=== PATIENT | female | born 2000 | race Caucasian/White ===

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

== ENCOUNTER → 2018-02-10 14:21 | Outpatient (POV) | payer BC, SELFPAY | DX: Z00.00 Encounter for general adult medical examination without abnormal findings (principal) ==

== ENCOUNTER → 2019-03-21 10:01 | Outpatient (CLI) | payer OTHER, SELFPAY ==
--- NOTE | 2019-03-21 10:01 | XR_ITS ---
PROCEDURE: XR DEXA AXIAL SKELETON CLINICAL HISTORY: Bone Density- Hat Lacer use of Depo-Provera COMPARISON: No exams were available for comparison FINDINGS: Right femoral neck density is 0.848 grams/centimeters sq with a Z-score of 0.0. Left femoral neck density is 0.835 grams/centimeters sq with a Z-score of -0.1. L1-L4 density is 1.075 grams/centimeters sq with a Z-score of 0.5. IMPRESSION: Normal bone density with age matched controls Dictated by: Neil Mendoza MD 04/01/2019 11:32 Electronically signed by Neil Mendoza MD in [place] 04/01/2019 11:32
== END ==
PROVIDERS: PCP Family Medicine; Visit Provider Nurse Practitioner Obstetrics & Gynecology
DX: Z30.42 Encounter for surveillance of injectable contraceptive (principal)
CPT/HCPCS: 77080

== ENCOUNTER 2020-01-14 09:05 | Emergency (ER) | payer OTHER, SELFPAY ==
[2020-01-14 09:26] VITALS: BP 132/86; PULSE 71; RESP 19; TEMP 36.9; O2SAT 100; BMI 32.5
--- NOTE | 2020-01-14 09:29 | HMH.EDUTC ---
[facility] [place] Disposition Clinical Impression: Sinusitis Qualifiers: Sinusitis location: unspecified location Chronicity: unspecified Qualified Code(s): J32.9 - Chronic sinusitis, unspecified Disposition: Home, Self-Care Condition on Discharge: Good Instructions: Sinusitis, Sinus Headache, DI for Sinusitis, Amoxicillin and Clavulanic Acid Additional Instructions: *Monitor Temp, Over the counter Motrin or Tylenol as directed/as needed Tylenol every 4 hours and Motrin every 6 hours (as long as your family doctor has told you that you can take it) for fever or pain. and straight to ER if unable to lower temp less than 101.0 after medication given *Warm salt water gargles may help to soothe the throat *Throat Lozenges *Warm fluids like tea with honey may help to soothe the throat *Sleep elevated *Humidifier/Vaporizer Take medication as prescribed Return if needed Follow up IMMEDIATELY for new or worsening symptoms or no Noticeable improvement over the next 48-72 hours. 911 for difficulty breathing or swallowing Prescriptions: Amoxicillin/Potassium Clav [Augmentin 875-125 Tablet] 1 tab PO Q12H 7 Days #14 tab Transmission Status: Pending to [facility] Fluticasone Propionate [Flonase 50mcg nasal spray 16gm] 1 - 2 spr NS DAILY #1 bottle Transmission Status: Pending to [facility] methylPREDNISolone [Medrol 4mg tab] 4 mg PO DIRECTED #21 tab Transmission Status: Pending to [facility] Referrals: Michael Carr MD [Primary Care Provider] - As needed Time of Disposition: 09:34 Medical Decision Making - Simone Inquiry Pt receiving controlled substance: No Simone was queried for this patient: No Vital Signs: 01/14/20 09:26 Temperature 98.4 F Temperature Source Oral Pulse Rate [Radial] 71 Respiratory Rate 19 Blood Pressure [Right Arm] 132/86 Blood Pressure Mean [Right Arm] 101 Blood Pressure Source [Right Arm] Automatic Cuff Blood Pressure Position [Right Arm] Sitting 02 Sat by Pulse Oximetry 100 Oxygen Delivery Method Room Air [facility] [place] HPI - General Stated complaint: sinus pressure, congestion Time Seen by Provider: 01/14/20 09:29 Mode of Arrival: Ambulatory Source of Information: Patient Limitations: No Limitations Description of Symptoms (Recalled from Triage Doc. by RN): sinus pressure and drainage x 2 days HEENT Symptoms (Recalled from RN notes): Yes Resp Symptoms (Recalled from RN notes): No Skin Symptoms (Recalled from RN notes): No MS Symptoms (Recalled from RN notes): No Functional Status (Recalled from RN notes): wnl - History of Present Illness Provider Complaint: Patient states that she has been having sinus congestion and pressure on an off for several days States for the last couple of days her pressure has got worse and feeling pressure under her eyes Denies exposure to COVID - Related Data Home Medications Medication Instructions Recorded Confirmed montelukast 10 mg tablet 10 mg PO DAILY 90 Days #90 tab 12/31/17 07/14/19 escitalopram oxalate 10 mg tablet 10 mg PO DAILY #30 tab 02/16/19 07/14/19 Previous Rx's Medication Instructions Recorded clindamycin HCl 300 mg capsule 300 mg PO TID 14 Days #42 cap 06/30/19 topiramate 100 mg tablet 100 mg PO QHS #30 tab 07/13/19 medroxyprogesterone 150 mg/mL 150 mg IM [id number] #1 ml 12/19/19 intramuscular suspension Amoxicillin/Potassium Clav 1 tab PO Q12H 7 Days #14 tab 01/14/20 [Augmentin 875-125 Tablet] Fluticasone Propionate [Flonase 1 - 2 spr NS DAILY #1 bottle 01/14/20 50mcg nasal spray 16gm] methylPREDNISolone [Medrol 4mg 4 mg PO DIRECTED #21 tab 01/14/20 tab] Allergies Allergy/AdvReac Type Severity Reaction Status Date / Time No Known Allergies Allergy Verified 07/14/19 10:11 - Worker's Comp Is this a Worker's Comp case?: No [facility] History - Hepatitis A Screen Drug use history?: No High risk sexual behaviors?: No History of sexually transmitted infection?: No Currently employed?:
[2020-01-14 09:45] VITALS: BP 132/86; PULSE 71; RESP 19; TEMP 36.9; O2SAT 100
== END 2020-01-14 09:46 | disposition home or self-care (01) ==
PROVIDERS: Emergency Provider Nurse Practitioner; PCP Family Medicine
DX: J32.9 Chronic sinusitis, unspecified (principal); F41.9 Anxiety disorder, unspecified; G43.709 Chronic migraine without aura, not intractable, without status migrainosus
CPT/HCPCS: 99201

== ENCOUNTER 2020-03-31 12:45 | Emergency (ER) | payer OTHER, SELFPAY ==
[2020-03-31 12:50] VITALS: BP 129/78; PULSE 84; RESP 20; TEMP 36.7; O2SAT 98; BMI 34.3
--- NOTE | 2020-03-31 12:58 | XR_ITS ---
PROCEDURE: XR FOOT LT MIN 3V XR ANKLE LT MIN 3V Referring Doctor: Rylan Phillips Patient Age:19Y CLINICAL INDICATION: INJURY pain ankle and foot. Pain most notable top of foot and overlying lateral malleolus overlying lateral malleolus COMPARISON: CR XR ANKLE LT MIN 3V from 03/31/2020 TECHNIQUE: 3 View AP, Oblique, Lateral studies of both the left ankle, as well as left foot performed today nonweightbearing FINDINGS: --LEFT ANKLE-3 VIEW AP LATERAL AND OBLIQUE . No fracture or dislocation. No lytic or blastic change. There is normal mineralization. Normal relationships at the ankle mortise. No arthritic changes . Soft tissue swelling overlying the lateral malleolus and extending towards the lateral foot. Lateral malleolus intact with no fracture evident --LEFT FOOT-THREE VIEWS: The left foot is intact with no fracture nor dislocation. Bones well mineralized. Joint spaces well maintained. The joint spaces are well-preserved. No significant degenerative/arthritic changes. No erosive changes evident. . Metatarsals intact and specifically base of 5th metatarsal intact on these views IMPRESSION: No acute fracture at either the left foot, nor left ankle. . Soft tissue swelling overlying the lateral malleolus extending towards the lateral foot, but osseous structures appear intact Dictated by: Deric Chatman MD 03/31/2020 14:28 Deric Chatman MD in [place] 03/31/2020 14:28
--- NOTE | 2020-03-31 13:28 | HMH.EDUTC ---
[facility] [place] Disposition Clinical Impression: Left ankle pain Qualifiers: Chronicity: acute Qualified Code(s): M25.572 - Pain in left ankle and joints of left foot Crush injury of left foot Qualifiers: Encounter type: initial encounter Qualified Code(s): S97.82XA - Crushing injury of left foot, initial encounter Disposition: Home, Self-Care Condition on Discharge: Good Instructions: DI for Crush Injury Additional Instructions: Rest the extremity, apply ice for 15 minutes as tolerated three or four times per day, Elevate the extremity as tolerated while you are resting. Take ibuprofen for pain. I sent in a prescription to your pharmacy. Follow up with Dr. Kumar (podiatry). Sometimes there can be fractures that don't show up well on the first set of x-rays. So, you should follow up if you continue to have symptoms. I put in a referral but you need to call her office and schedule an appointment. Follow up with your regular doctor. GO TO THE ER FOR ANY WORSENING SYMPTOMS Prescriptions: Ibuprofen [Ibuprofen 600mg Tablet] 600 mg PO Q6HP PRN #30 tab PRN Reason: Mild Pain Transmission Status: Received by [facility] Referrals: Michael Carr MD [Primary Care Provider] - Carol Kumar DPM [Staff Physician] - Time of Disposition: 13:37 Medical Decision Making - Medical Records Medical records reviewed: No: I reviewed the patient's medical records. - Simone Inquiry Pt receiving controlled substance: No Vital Signs: 03/31/20 12:50 03/31/20 13:36 Temperature 98.1 F 98.1 F Temperature Source Oral Pulse Rate 84 Pulse Rate [Left Brachial] 84 Respiratory Rate 20 20 Blood Pressure 129/78 Blood Pressure [Right Arm] 129/78 Blood Pressure Mean [Right Arm] 95 Blood Pressure Source [Right Arm] Automatic Cuff Blood Pressure Position [Right Arm] Sitting 02 Sat by Pulse Oximetry 98 Oxygen Delivery Method Room Air - Radiology Data #1 Image(s): Ankle Image Reviewed: Yes I reviewed the patient's radiology image, Yes I have reviewed radiologist's interpretation Preliminary Findings: No Fracture Seen PROCEDURE: XR FOOT LT MIN 3V XR ANKLE LT MIN 3V Referring Doctor: Rylan Phillips Patient Age:19Y CLINICAL INDICATION: INJURY pain ankle and foot. Pain most notable top of foot and overlying lateral malleolus overlying lateral malleolus COMPARISON: CR XR ANKLE LT MIN 3V from 03/31/2020 TECHNIQUE: 3 View AP, Oblique, Lateral studies of both the left ankle, as well as left foot performed today nonweightbearing FINDINGS: --LEFT ANKLE-3 VIEW AP LATERAL AND OBLIQUE . No fracture or dislocation. No lytic or blastic change. There is normal mineralization. Normal relationships at the ankle mortise. No arthritic changes . Soft tissue swelling overlying the lateral malleolus and extending towards the lateral foot. Lateral malleolus intact with no fracture evident --LEFT FOOT-THREE VIEWS: The left foot is intact with no fracture nor dislocation. Bones well mineralized. Joint spaces well maintained. The joint spaces are well-preserved. No significant degenerative/arthritic changes. No erosive changes evident. . Metatarsals intact and specifically base of 5th metatarsal intact on these views IMPRESSION: No acute fracture at either the left foot, nor left ankle. . Soft tissue swelling overlying the lateral malleolus extending towards the lateral foot, but osseous structures appear intact Dictated by: Deric Chatman MD 03/31/2020 14:28 Deric Chatman MD in [place] 03/31/2020 14:28 #2 Image(s): Foot/Toes Image Reviewed: Yes I reviewed the patient's radiology image, Yes I have reviewed radiologist's interpretation Preliminary Findings: No Fracture Seen PROCEDURE: XR FOOT LT MIN 3V XR ANKLE LT MIN 3V Referring Doctor: Rylan Phillips Patient Age:19Y CLINICAL INDICATION: INJURY pain ankle and foot. Pain most notable top of foot and overlyin
[2020-03-31 13:36] VITALS: BP 129/78; PULSE 84; RESP 20; TEMP 36.7; O2SAT 98
== END 2020-03-31 13:44 | disposition home or self-care (01) ==
PROVIDERS: Emergency Provider Nurse Practitioner Family; PCP Family Medicine
DX: S97.82XA Crushing injury of left foot, initial encounter (principal); W22.8XXA Striking against or struck by other objects, initial encounter; Y92.019 Unspecified place in single-family (private) house as the place of occurrence of the external cause; F41.9 Anxiety disorder, unspecified; G43.709 Chronic migraine without aura, not intractable, without status migrainosus
CPT/HCPCS: 29515; 73610; 73630; 99203; G0463

== ENCOUNTER 2020-05-01 16:14 | Emergency (ER) | payer OTHER, SELFPAY ==
[2020-05-01 16:35] VITALS: BP 138/72; PULSE 80; RESP 18; TEMP 36.8; O2SAT 98; BMI 26.6
--- NOTE | 2020-05-01 17:18 | HMH.EDUTC ---
[facility] [place] Disposition Clinical Impression: Laceration Disposition: Home, Self-Care Condition on Discharge: Good Instructions: DI for Laceration Repair, DI for Dog Bite Additional Instructions: Suture/Staple instructions: You have required stitches or Neha today. Please read the following instructions so you know how to care for them: 1. Keep wound area dry for the first 24 hours. 2 May clean gently with mild soap and water, after 48 hours to prevent crusting over suture knots. 3. You may shower if your provider gives permission but do not take a bath until the skin is healed.. 4. Never leave a wet dressing or Band-Aid on your stitches as this allows bacteria to reach the area and may cause infection. Band-aids can cause the wound to sweat and not recommended to wear for long periods of time Watch for signs of infection: Increasing redness, tenderness or warmth around the suture site Unusual swelling around the site Appearance of pus around each suture or any red streaks Fever If you develop any of the above signs or symptoms of infection, Follow up with Family Physician immediately 5. Suture removal in _7-10___days 6. Return to [facility] or follow up with family doctor for removal. This can be done by any medical provider during regular hours on Thursday through Thursday, by appointment Prescriptions: Amoxicillin/Potassium Clav [Augmentin 875-125 Tablet] 1 tab PO Q12H 7 Days #14 tab Transmission Status: Received by [email or web address] Referrals: Michael Carr MD [Primary Care Provider] - As needed Forms: Work/School Release Time of Disposition: 17:23 Medical Decision Making - Simone Inquiry Pt receiving controlled substance: No Simone was queried for this patient: No Vital Signs: 05/01/20 16:35 05/01/20 17:29 Temperature 98.3 F 98.3 F Temperature Source Temporal Artery Scan Pulse Rate 80 Pulse Rate [Right Brachial] 80 Respiratory Rate 18 18 Blood Pressure 138/72 Blood Pressure [Right Arm] 138/72 Blood Pressure Mean [Right Arm] 94 Blood Pressure Source [Right Arm] Automatic Cuff Blood Pressure Position [Right Arm] Sitting 02 Sat by Pulse Oximetry 98 Oxygen Delivery Method Room Air Medical Decision Narrative: Patient reports that dogs is up to date on shots, and she is up to date on her TDAP due to depth and size of laceration discussed with patient and agreed to loosely close the wounds for healing Patient educated to monitor wounds closely for infection and will place on antibiotics [facility] [place] HPI - General Stated complaint: AO dog bite to R arm 1530 Time Seen by Provider: 05/01/20 16:45 Mode of Arrival: Ambulatory Source of Information: Patient Limitations: No Limitations Description of Symptoms (Recalled from Triage Doc. by RN): PATIENT C/O DOG BITE TO RIGHT HAND. SHE STATES SHE IS UP TO DATE ON TDAP HEENT Symptoms (Recalled from RN notes): No Resp Symptoms (Recalled from RN notes): No Skin Symptoms (Recalled from RN notes): Yes MS Symptoms (Recalled from RN notes): No Functional Status (Recalled from RN notes): WNL - History of Present Illness Provider Complaint: Patient state that her dogs was fighting and somehow one of them bite her several times on her right wrist and arm States that she immediately cleaned them out well with soap and water States that she is up to date on her Tdap States that she looked at them and knew they may need a couple stitches so she came in Denies numbness denies inability to move fingers - Related Data Home Medications Medication Instructions Recorded Confirmed montelukast 10 mg tablet 10 mg PO DAILY 90 Days #90 tab 12/31/17 07/14/19 escitalopram oxalate 10 mg tablet 10 mg PO DAILY #30 tab 02/16/19 07/14/19 Previous Rx's Medication Instructions Recorded clindamycin HCl 300 mg capsule 300 mg PO TID 14 Days #42 cap 06/30/19 topiramate 100 mg tablet 100 mg PO QHS #30 tab 07/13/19 medroxyprogesterone 150 mg/mL 150 mg IM [id number] #1 ml 12/19/19 intramu
[2020-05-01 17:29] VITALS: BP 138/72; PULSE 80; RESP 18; TEMP 36.8; O2SAT 98
== END 2020-05-01 17:33 | disposition home or self-care (01) ==
PROVIDERS: Emergency Provider Nurse Practitioner; PCP Family Medicine
DX: S61.511A Laceration without foreign body of right wrist, initial encounter (principal); S61.411A Laceration without foreign body of right hand, initial encounter; W54.0XXA Bitten by dog, initial encounter; Y92.019 Unspecified place in single-family (private) house as the place of occurrence of the external cause; F41.9 Anxiety disorder, unspecified
CPT/HCPCS: 12002; 99202; G0463

== ENCOUNTER → 2020-07-24 14:53 | Outpatient (CLI) | payer OTHER, SELFPAY ==
--- NOTE | 2020-07-24 14:56 | US_ITS ---
PROCEDURE: US TRANSVAGINAL CLINICAL INDICATION: irregular bleeding COMPARISON: No exams were available for comparison FINDINGS: UTERUS: 6.2 x 4cmx 3cm with a combined endometrial thickness of 3.9mm LEFT OVARY: [id number] with a volume of 6.8ml. RIGHT OVARY: 3cmx [id number] with a volume of 4.4ml. No free fluid in the pelvis. IMPRESSION: Unremarkable transvaginal pelvic ultrasound. Dictated by: Ainsley Mcginnis 07/24/2020 16:57 Ainsley Mcginnis in [place] 07/24/2020 16:57
== END ==
PROVIDERS: PCP Family Medicine; Visit Provider Nurse Practitioner Obstetrics & Gynecology
DX: N92.6 Irregular menstruation, unspecified (principal)
CPT/HCPCS: 76830

== ENCOUNTER → 2020-08-08 06:00 | Outpatient (CLI) | payer OTHER, SELFPAY ==
[2020-08-08 06:45] LABS: Basophils # 0.1 K/mm3 (0-0.2); Basophils % 0.7 % (0.1-2.0); Eosinophils # 0.1 K/mm3 (0.0-0.4); Eosinophils % 1.8 % (0.1-12.0); Hematocrit 43.1 % (37.0-47.0); Lymphocytes # 2.5 K/mm3 (0.7-4.5); Mean Corpuscular HGB Conc 32.6 g/dL (31.8-35.4); Mean Corpuscular Hemoglobin 27.9 pg (27.0-31.2); Mean Corpuscular Volume 85.6 fl (81-99); Mean Platelet Volume 7.2 fl (7.4-10.4); Monocytes # 0.5 K/mm3 (0.1-1.0); Monocytes % 5.9 % (1.7-9.3); Neutrophils # 4.4 K/mm3 (1.8-7.8); Neutrophils % 58.6 % (37.0-80.0); Platelet Count 310 K/mm3 (142-424); Red Blood Count 5.04 M/mm3 (4.20-5.40); White Blood Count 7.6 K/mm3 (4.8-10.8)
[2020-08-08 06:59] LABS: Alanine Aminotransferase 20 U/L (12-78); Albumin Level 4.7 g/dl (3.5-5.0); Albumin/Globulin Ratio 1.4 (1.1-1.8); Alkaline Phosphatase 66 U/L (38-126); Amylase 68 U/L (30-110); Anion Gap 12.1 mEq/L (5-15); Aspartate Amino Transferase 31 U/L (14-36); Bilirubin,Total 0.4 mg/dl (0.2-1.3); Blood Urea Nitrogen 14 mg/dl (7-17); Calcium 9.3 mg/dl (8.4-10.2); Carbon Dioxide 27 mmol/L (22.0-30.0); Chloride 104 mmol/L (98-107); Estimated Glomerular Filt Rate 126 ml/min (>60); GFR (African American) 153 ML/MIN (>60); Globulin 3.4 g/dL (1.3-3.2); Glucose 98 mg/dl (74-100); Lipase 109 U/L (23-300); Potassium 4.1 mmoL/L (3.5-5.1); Sodium 139 mmol/L (136-145); Total Protein,Serum 8.1 g/dl (6.3-8.2)
== END ==
PROVIDERS: PCP Family Medicine; Visit Provider Emergency Medicine
DX: R10.9 Unspecified abdominal pain (principal)
CPT/HCPCS: 80053; 82150; 83690; 85025

== ENCOUNTER → 2020-08-10 15:00 | Outpatient (CLI) | payer OTHER, SELFPAY ==
--- NOTE | 2020-08-10 15:05 | US_ITS ---
PROCEDURE: US ABDOMEN LIMITED CLINICAL INDICATION: ABD PAIN Right upper quadrant pain COMPARISON: No exams were available for comparison FINDINGS: PANCREAS: Pancreas is not well delineated due to overlying bowel gas. CT without and with contrast with pancreatic protocol may provide further evaluation if clinically desired. LIVER: No focal liver lesions demonstrated. Homogeneous echogenicity. No intrahepatic biliary ductal dilatation evident. There is appropriate direction of blood flow within a non dilated portal vein RIGHT KIDNEY: Unremarkable. Normal size and echogenicity. No hydronephrosis GALLBLADDER: No gallstones, gallbladder wall thickening, pericholecystic fluid, or biliary dilatation. Common bile duct normal at 2 mm. IMPRESSION: Pancreas is not well delineated. Otherwise unremarkable. No gallstones or other significant. Dictated by: Neil Mendoza MD 08/15/2020 09:02 Neil Mendoza MD in [place] 08/15/2020 09:02
== END ==
PROVIDERS: PCP Family Medicine; Visit Provider Family Medicine
DX: R10.11 Right upper quadrant pain (principal)
CPT/HCPCS: 76705

== ENCOUNTER 2021-01-16 17:30 | Emergency (ER) | payer OTHER, SELFPAY ==
[2021-01-16 18:00] VITALS: BP 123/68; PULSE 102; RESP 22; TEMP 36.9; O2SAT 96; BMI 32.5
[2021-01-16 18:30] LABS: UTC Strep Screen (Rapid) Negative (Negative)
[2021-01-16 18:50] LABS: Influenza A, PCR Not Detected (NotDetected); Influenza B, PCR Not Detected (NotDetected)
--- NOTE | 2021-01-16 19:07 | HMH.EDUTC ---
[facility] [place] Disposition Clinical Impression: URI (upper respiratory infection) Qualifiers: URI type: unspecified URI Qualified Code(s): J06.9 - Acute upper respiratory infection, unspecified Disposition: Home, Self-Care Condition on Discharge: Good Instructions: Sore Throat, DI for Fever (Symptom) -- Adult, DI for COVID-19 (Suspected or Confirmed ), Preventing the Spread of Coronavirus Discharge Instructions Additional Instructions: *Monitor Temp, Over the counter Motrin or Tylenol as directed/as needed Tylenol every 4 hours and Motrin every 6 hours (as long as your family doctor has told you that you can take it) for fever or pain. and straight to ER if unable to lower temp less than 101.0 after medication given *Warm salt water gargles may help to soothe the throat *Throat Lozenges *Warm fluids like tea with honey may help to soothe the throat *Sleep elevated *Humidifier/Vaporizer Your throat swab was sent for culture. Those results are typically sent to your primary care. Be sure to follow up in 2-3 days with your family doctor/primary care physician if no improvement so they can review those result and treat if necessary. If you don?t have a primary care doctor, I recommend you get one but in the mean time, you will have to return to a walk in clinic Follow up IMMEDIATELY for new or worsening symptoms or no Noticeable improvement over the next 48-72 hours. 911 for difficulty breathing or swallowing You were tested for today for COVID19 your test result should be back in the next 24-48 hours, you can view your results on the [facility] [employer] [facility] portal you will be given hand out on how to log on if you have trouble you may call the [facility] You was given a handout with instructions for Self Quarantine and Self isolation for while you wait on test results and what to do if they are positive If you are positive the Health Dept will be contacting you also Make sure to take your Vitamins Vit. C Vit D and Zinc if you can take them Prescriptions: Brompheniramine/Pseudoephed/Dm [Bromfed Dm Cough Syrup] 5 - 10 ml PO Q46H PRN #200 ml PRN Reason: Cough Transmission Status: Received by [facility] #[id number] Referrals: Michael Carr MD [Primary Care Provider] - As needed Forms: Work/School Release Medical Decision Making - Simone Inquiry Pt receiving controlled substance: No Simone was queried for this patient: No Vital Signs: 01/16/21 18:00 01/16/21 19:29 Temperature 98.4 F 98.4 F Temperature Source Oral Pulse Rate 102 H Pulse Rate [Right Brachial] 102 H Respiratory Rate 22 22 Blood Pressure 123/68 Blood Pressure [Right Arm] 123/68 Blood Pressure Mean [Right Arm] 86 Blood Pressure Source [Right Arm] Automatic Cuff Blood Pressure Position [Right Arm] Sitting 02 Sat by Pulse Oximetry 96 Oxygen Delivery Method Room Air - Lab Data Lab results reviewed: Yes: I reviewed the patient's lab results. Lab Results 01/16/21 18:05: SARS-CoV-2 (PCR) Detected A, Influenza A Untype (PCR) Not detected, Influenza Type B (PCR) Not detected 01/16/21 18:11: Strep Scn Rapid Clinic Negative Orders (Tests/Meds): ED MEDICATIONS Discontinued Medications Generic Name Dose Route Start Last Admin Trade Name Porfirio PRN Reason Stop Dose Admin Ceftriaxone Sodium 1 gm 01/16/21 19:08 01/16/21 19:19 Ceftriaxone 1gm Vial IM 01/16/21 19:09 1 gm ONCE ONE Administration Ketorolac Tromethamine 30 mg 01/16/21 19:24 01/16/21 19:29 Ketorolac 30mg/Ml Vial IM 01/16/21 19:25 30 mg ONCE ONE Administration Lidocaine HCl 0 ml 01/16/21 19:08 01/16/21 19:19 Lidocaine 1% 5ml Pf Vial IM 01/16/21 19:09 2.1 ml ONCE ONE Administration Methylprednisolone Sodium Succinate 125 mg 01/16/21 19:08 01/16/21 19:19 Methylprednisolone Sod Succ 125mg Vial IM 01/16/21 19:09 125 mg ONCE ONE Administration ORDERS Category Date Time Status Strep Screen Confirmation Stat Micro 01/16/21 18:11 Received Medical De
[2021-01-16 19:29] VITALS: BP 123/68; PULSE 102; RESP 22; TEMP 36.9; O2SAT 96
[2021-01-16 20:29] LABS: Coronavirus 19, PCR Detected (NotDetected)
== END 2021-01-16 19:40 | disposition home or self-care (01) ==
PROVIDERS: Emergency Provider Nurse Practitioner; PCP Family Medicine
DX: U07.1 COVID-19 (principal); J06.9 Acute upper respiratory infection, unspecified
CPT/HCPCS: 87880; 96372; 99202; C9803; G0463; U0003; U0005

== ENCOUNTER → 2021-05-20 12:38 | Outpatient (CLI) | payer OTHER, SELFPAY ==
[2021-05-20 14:05] LABS: HCG,Quantitative 50 mIU/ml (0-5.42)
== END ==
PROVIDERS: Visit Provider Obstetrics & Gynecology
DX: Z32.01 Encounter for pregnancy test, result positive (principal)
CPT/HCPCS: 36415; 84702

== ENCOUNTER → 2021-05-23 00:25 | Outpatient (CLI) | payer OTHER, SELFPAY ==
[2021-05-23 02:20] LABS: HCG,Quantitative 167 mIU/ml (0-5.42)
== END ==
PROVIDERS: PCP Family Medicine; Visit Provider Obstetrics & Gynecology
DX: Z32.01 Encounter for pregnancy test, result positive (principal)
CPT/HCPCS: 84702

== ENCOUNTER → 2021-05-29 02:29 | Outpatient (CLI) | payer OTHER, SELFPAY ==
[2021-05-29 03:44] LABS: HCG,Quantitative 1286 mIU/ml (0-5.42)
== END ==
PROVIDERS: Visit Provider Obstetrics & Gynecology
DX: Z34.90 Encounter for supervision of normal pregnancy, unspecified, unspecified trimester (principal)
CPT/HCPCS: 84702

== ENCOUNTER → 2021-06-17 12:57 | Outpatient (CLI) | payer OTHER, SELFPAY ==
--- NOTE | 2021-06-17 12:57 | US_ITS ---
FINAL REPORT CLINICAL HISTORY: Dates FINDINGS: PELVIC ULTRASOUND A single living intrauterine is present. A yolk sac is identified. Cardiac activity is confirmed at 165 beats per minute. Estimated gestational age is 7 weeks 4 days based on a crown-rump length of 1.2 cm. Appropriate amount of fluid is present. The right ovary measures 4.4 x 3.1 x 2.6 cm. There are 2 small cysts in the right ovary. The left ovary measures 3.2 x 2.1 x 1.4 cm. IMPRESSION: Single living intrauterine with a gestational age of 7 weeks 4 days. Two small right ovarian cysts. Reviewed, Interpreted and Dictated by Aaron Rivera III, MD Transcribed by Josesito Maldonado Authenticated by Aaron Rivera III, MD on 06/17/2021 02:20:35 PM [facility]
== END ==
PROVIDERS: PCP Family Medicine; Visit Provider Obstetrics & Gynecology
DX: Z34.90 Encounter for supervision of normal pregnancy, unspecified, unspecified trimester (principal)
CPT/HCPCS: 76801

== ENCOUNTER → 2021-06-28 10:58 | Outpatient (CLI) | payer OTHER, SELFPAY ==
[2021-06-28 11:56] LABS: Basophils # 0.1 K/mm3 (0-0.2); Basophils % 0.8 % (0.1-2.0); Eosinophils # 0.1 K/mm3 (0.0-0.4); Eosinophils % 0.7 % (0.1-12.0); Lymphocytes # 1.3 K/mm3 (0.7-4.5); Lymphocytes % 12.3 % (10-50); Mean Corpuscular HGB Conc 33.3 g/dL (31.8-35.4); Mean Corpuscular Hemoglobin 29.3 pg (27.0-31.2); Mean Corpuscular Volume 88.1 fl (81-99); Mean Platelet Volume 7.8 fl (7.4-10.4); Monocytes # 0.5 K/mm3 (0.1-1.0); Monocytes % 4.5 % (1.7-9.3); Neutrophils # 8.6 K/mm3 (1.8-7.8); Neutrophils % 81.7 % (37.0-80.0); Platelet Count 340 K/mm3 (142-424); Red Blood Count 4.77 M/mm3 (4.20-5.40); Red Cell Distribution Width 13.1 % (11.5-17.5); White Blood Count 10.6 K/mm3 (4.8-10.8)
[2021-06-29 07:20] LABS: HIV Screen 4th Generation wRfx Non Reactive (Non Reactive)
[2021-06-29 08:15] LABS: Hepatitis B Surface Antigen Negative (Negative); Hepatitis C Antibody <0.1 s/co ratio (0.0-0.9); Rubella Antibodies, IgG 3.08 index (Immune >0.99)
[2021-06-29 12:26] LABS: Rapid Plasma Reagin Ab Titer Non Reactive (NonRea<1:1)
== END ==
PROVIDERS: Visit Provider Obstetrics & Gynecology
DX: Z34.90 Encounter for supervision of normal pregnancy, unspecified, unspecified trimester (principal)
CPT/HCPCS: 36415; 85025; 86592; 86703; 86762; 86850; 87340; 87380; G0432

== ENCOUNTER → 2021-07-15 11:37 | Outpatient (CLI) | payer OTHER, SELFPAY ==
[2021-07-15 12:00] VITALS: BP 128/75; PULSE 88; RESP 17; TEMP 36.8; O2SAT 100
[2021-07-15 12:03] VITALS: BMI 31.6
[2021-07-15 12:15] LABS: Chloride 102 mmol/L (98-107); Potassium 3.7 mmoL/L (3.5-5.1); Sodium 137 mmol/L (136-145)
[2021-07-15 12:17] LABS: Blood Urea Nitrogen 8 mg/dl (7-17); Creatinine Clearance Estimated 291 mL/min (50-200); Estimated Glomerular Filt Rate 200 ml/min (>60); GFR (African American) 242 ML/MIN (>60)
[2021-07-15 12:18] LABS: Alanine Aminotransferase 58 U/L (12-78); Albumin Level 4.3 g/dl (3.5-5.0); Albumin/Globulin Ratio 1.3 (1.1-1.8); Alkaline Phosphatase 63 U/L (38-126); Anion Gap 13.7 mEq/L (5-15); Aspartate Amino Transferase 55 U/L (14-36); Bilirubin,Total 0.6 mg/dl (0.2-1.3); Calcium 9.8 mg/dl (8.4-10.2); Carbon Dioxide 25 mmol/L (22.0-30.0); Globulin 3.4 g/dL (1.3-3.2); Glucose 104 mg/dl (74-100); Total Protein,Serum 7.7 g/dl (6.3-8.2)
[2021-07-15 14:00] VITALS: BP 124/77; PULSE 80; RESP 16; TEMP 36.8; O2SAT 100
== END ==
LOC: LAB 11:38 → INF 07-17 13:55
PROVIDERS: PCP Family Medicine; Visit Provider Obstetrics & Gynecology
DX: O21.0 Mild hyperemesis gravidarum (principal); E86.0 Dehydration; Z3A.09 9 weeks gestation of pregnancy
CPT/HCPCS: 80053; 96360; 96361; 96374; G0463; J2405

== ENCOUNTER → 2021-07-24 18:46 | Outpatient (CLI) | payer OTHER, SELFPAY ==
[2021-07-24 23:03] VITALS: BP 111/72; PULSE 87; RESP 20; TEMP 36.7; O2SAT 98
== END ==
PROVIDERS: PCP Family Medicine; Visit Provider Obstetrics & Gynecology
DX: O21.0 Mild hyperemesis gravidarum (principal)
CPT/HCPCS: G0463; J2405

== ENCOUNTER → 2021-09-13 12:50 | Outpatient (CLI) | payer OTHER, SELFPAY ==
--- NOTE | 2021-09-13 12:56 | US_ITS ---
FINAL REPORT CLINICAL HISTORY: OB complete, Anatomy FINDINGS: There is a single live intrauterine gestation. Presentation is cephalic. Placenta is posterior, grade 1. movement is noted. Three-vessel cord with satisfactory umbilical cord insertion. Four-chamber heart is noted. brain and ventricles are unremarkable. SPINE: No anomalies identified. AMNIOTIC FLUID: Appropriate amount. MEASUREMENTS: ULTRASOUND AGE: 20 weeks 4 days. GESTATION AGE: 20 weeks 1 day. ESTIMATED WEIGHT: 352 g GROWTH PERCENTILE: 61 % BPD: 4.91 cm corresponding to 20 weeks 6 days. OFD: 6.11 cm corresponding to 20 weeks 5 days. HC: 17.41 cm corresponding to 26 weeks 0 days. AC: 15.12 cm corresponding to 20 weeks 3 days. FL: 3.36 cm corresponding to 20 weeks 4 days. CEREBELLUM: 2.02 cm corresponding to 20 weeks 4 days. HUMERUS: 3.13 cm corresponding to 20 weeks 3 days. HC/AC: 1.15 CI: 80% FL/BPD: 68% FL/AC: 22% IMPRESSION: Single living IUP with an ultrasound age of 20 weeks 4 days. Reviewed, Interpreted and Dictated by Aaron Rivera III, MD Transcribed by Nabila Ye Authenticated and [facility]
== END ==
PROVIDERS: PCP Family Medicine; Visit Provider Obstetrics & Gynecology
DX: Z34.90 Encounter for supervision of normal pregnancy, unspecified, unspecified trimester (principal)
CPT/HCPCS: 76811

== ENCOUNTER → 2021-10-23 07:37 | Outpatient (CLI) | payer OTHER, SELFPAY ==
[2021-10-23 08:38] LABS: Glucose,Fasting 120 mg/dl (74-100)
[2021-10-23 09:32] LABS: Basophils # 0.1 K/mm3 (0-0.2); Basophils % 0.6 % (0.1-2.0); Eosinophils # 0.1 K/mm3 (0.0-0.4); Eosinophils % 0.8 % (0.1-12.0); Hematocrit 36.1 % (37.0-47.0); Hemoglobin 11.8 g/dL (12.2-16.2); Lymphocytes # 0.9 K/mm3 (0.7-4.5); Lymphocytes % 8.2 % (10-50); Mean Corpuscular HGB Conc 32.6 g/dL (31.8-35.4); Mean Corpuscular Hemoglobin 28.4 pg (27.0-31.2); Mean Platelet Volume 8.2 fl (7.4-10.4); Monocytes # 0.5 K/mm3 (0.1-1.0); Monocytes % 4.4 % (1.7-9.3); Platelet Count 311 K/mm3 (142-424); Red Blood Count 4.14 M/mm3 (4.20-5.40); Red Cell Distribution Width 13.4 % (11.5-17.5); White Blood Count 10.4 K/mm3 (4.8-10.8)
[2021-10-23 09:35] LABS: MANUAL DIFFERENTIAL MANUAL DIFFERENTIAL (MANUAL DIFF)
[2021-10-23 09:36] LABS: Glucose 1 Hour 112 mg/dL (74-100)
[2021-10-23 15:50] LABS: Lymphocytes % 9 % (10-50); Monocytes % 2 % (2-9); Neutrophils % 89 % (42-76); Total Cells Counted 100
[2021-10-23 15:51] LABS: Platelet Estimate Normal; RBC Morphology Normal
== END ==
PROVIDERS: Visit Provider Obstetrics & Gynecology
DX: Z34.90 Encounter for supervision of normal pregnancy, unspecified, unspecified trimester (principal)
CPT/HCPCS: 36415; 82951; 85007; 85025

== ENCOUNTER → 2021-11-27 15:55 | Outpatient (CLI) | payer OTHER, SELFPAY ==
[2021-11-27 17:05] LABS: Chloride 106 mmol/L (98-107)
[2021-11-27 17:06] LABS: Potassium 3.8 mmoL/L (3.5-5.1); Sodium 138 mmol/L (136-145)
[2021-11-27 17:08] LABS: Alanine Aminotransferase 18 U/L (12-78); Alkaline Phosphatase 100 U/L (38-126); Aspartate Amino Transferase 32 U/L (14-36); Blood Urea Nitrogen 5 mg/dl (7-17); Estimated Glomerular Filt Rate 153 ml/min (>60); GFR (African American) 185 ML/MIN (>60)
[2021-11-27 17:09] LABS: Albumin Level 3.5 g/dl (3.5-5.0); Albumin/Globulin Ratio 1.1 (1.1-1.8); Anion Gap 8.8 mEq/L (5-15); Calcium 8.1 mg/dl (8.4-10.2); Carbon Dioxide 27 mmol/L (22.0-30.0); Globulin 3.2 g/dL (1.3-3.2); Glucose 91 mg/dl (74-100); Total Protein,Serum 6.7 g/dl (6.3-8.2)
[2021-11-27 17:29] LABS: Bilirubin,Total < 0.1 mg/dl (0.2-1.3)
[2021-12-14 16:54] LABS: Bile Acids 5.5
== END ==
PROVIDERS: PCP Obstetrics & Gynecology; Visit Provider Obstetrics & Gynecology
DX: Z34.90 Encounter for supervision of normal pregnancy, unspecified, unspecified trimester (principal)
CPT/HCPCS: 80053; 82239

== ENCOUNTER → 2021-12-19 13:59 | Outpatient (CLI) | payer OTHER, SELFPAY ==
--- NOTE | 2021-12-19 14:00 | US_ITS ---
FINAL REPORT CLINICAL HISTORY: LGA FINDINGS: There is a single live intrauterine gestation. Presentation is cephalic. Placenta is posterior fundal and grade 2. Cardiac activity is confirmed at 152 bpm. The cervix measures 3.6 cm. The fetus is active. Three-vessel cord with satisfactory umbilical cord insertion. Four-chamber heart is noted. brain and ventricles are unremarkable. Chest and diaphragm are unremarkable. ABDOMEN: Both kidneys are unremarkable. Stomach is unremarkable. SPINE: No anomalies identified. Both arms and legs noted. AMNIOTIC FLUID: Appropriate amount. MEASUREMENTS: ULTRASOUND AGE: 34 weeks 0 days. GESTATION AGE: 34 weeks 0 days. ESTIMATED WEIGHT: 2795 g GROWTH PERCENTILE: 92% BPD: 9.0 cm consistent with 36 weeks 5 days. OFD: 11.0 cm consistent with 35 weeks 5 days. HC: 31.7 cm consistent with 35 weeks 5 days. AC: 32.3 cm consistent with 36 weeks 2 days. FL: 6.8 cm consistent with 35 weeks 1 days. HC/AC: 0.9 a CI: 82% FL/BPD: 76% FL/AC: 21% IMPRESSION: Single living IUP with an ultrasound age of 36 weeks 0 days. Reviewed, Interpreted and Dictated by Aaron Rivera III, MD Transcribed by Josesito Maldonado Authenticated and [facility]
== END ==
PROVIDERS: PCP Obstetrics & Gynecology; Visit Provider Obstetrics & Gynecology
DX: O36.60X0 Maternal care for excessive fetal growth, unspecified trimester, not applicable or unspecified (principal)
CPT/HCPCS: 76816

== ENCOUNTER → 2022-01-03 02:00 | Outpatient (CLI) | payer OTHER, SELFPAY | PROVIDERS: Visit Provider Obstetrics & Gynecology | DX: Z34.90 Encounter for supervision of normal pregnancy, unspecified, unspecified trimester (principal) | CPT/HCPCS: 86403 ==

== ENCOUNTER → 2022-01-14 13:52 | Outpatient (CLI) | payer OTHER, SELFPAY ==
--- NOTE | 2022-01-14 13:52 | US_ITS ---
FINAL REPORT CLINICAL HISTORY: lga FINDINGS: There is a single live intrauterine gestation. Presentation is cephalic. Placenta is grade 3. Heart rate is 155 beats per minute. Fetus is active. Visualized anatomy is within normal limits. AMNIOTIC FLUID: Appropriate amount. SOFIA: 14 cm MEASUREMENTS: ULTRASOUND AGE: 38 weeks 2 days. GESTATION AGE: 37 weeks 5 days. ESTIMATED WEIGHT: 3499 g GROWTH PERCENTILE: 79% BPD: 9.3 cm consistent with 37 weeks 6 days. OFD: 11.9 cm . HC: 33.6 cm consistent with 38 weeks 4 days. AC: 35.2 cm consistent with 39 weeks 1 days. FL: 7.3 cm consistent with 37 weeks 2 days. HC/AC: 0.95 CI: 78% FL/BPD: 78% FL/AC: 21% IMPRESSION: Single living IUP with an ultrasound age of 38 weeks 2 days. SOFIA of cm Reviewed, Interpreted and Dictated by Aaron Rivera III, MD Transcribed by Josesito Maldonado Authenticated and [facility]
== END ==
PROVIDERS: Visit Provider Obstetrics & Gynecology
DX: O36.60X0 Maternal care for excessive fetal growth, unspecified trimester, not applicable or unspecified (principal)
CPT/HCPCS: 76816

== ENCOUNTER 2022-01-15 15:00 | Inpatient (IN) | payer OTHER, SELFPAY ==
--- NOTE | 2022-01-15 15:05 | HMH.PHAINT1 ---
Pharmacy Intervention Comments: MEDICATION RECONCILIATION COMPLETED ON PATIENT USING EXTERNAL FILL HISTORY FROM PHARMACY. -JAMIE ALFARO, CHOND
[2022-01-15 15:09] VITALS: BMI 36.8
[2022-01-15 15:32] LABS: Microscopic, Urine URINE MICROSCOPIC (MICROSCOPIC)
[2022-01-15 15:34] LABS: Appearance,Urine CLEAR (Clear); Bilirubin,Urine Negative (Negative); Blood, Urine Negative (Negative); Color,Urine DK YELLOW (Yellow); Glucose,Urine (UA) Negative (Negative); Ketones,Urine 1+ (Negative); Leukocyte Esterase,Urine Negative (Negative); Nitrate,Urine Negative (Negative); Protein,Urine TRACE (Negative); Specific Gravity, Urine >= 1.030 (1.005-1.030)
[2022-01-15 15:46] LABS: Coronavirus 19, PCR Not Detected (NotDetected); Influenza A, PCR Not Detected (NotDetected); Influenza B, PCR Not Detected (NotDetected)
[2022-01-15 15:46] LABS: MANUAL DIFFERENTIAL MANUAL DIFFERENTIAL (MANUAL DIFF)
[2022-01-15 15:47] LABS: Basophils % 0.2 % (0.1-2.0); Eosinophils # 0.1 K/mm3 (0.0-0.4); Eosinophils % 0.5 % (0.1-12.0); Hematocrit 32.2 % (37.0-47.0); Hemoglobin 10.5 g/dL (12.2-16.2); Lymphocytes # 1.3 K/mm3 (0.7-4.5); Lymphocytes % 12.3 % (10-50); Mean Corpuscular HGB Conc 32.7 g/dL (31.8-35.4); Mean Corpuscular Hemoglobin 24.3 pg (27.0-31.2); Mean Corpuscular Volume 74.2 fl (81-99); Mean Platelet Volume 10.3 fl (7.4-10.4); Monocytes # 0.6 K/mm3 (0.1-1.0); Platelet Count 267 K/mm3 (142-424); Red Blood Count 4.34 M/mm3 (4.20-5.40); Red Cell Distribution Width 16.1 % (11.5-17.5)
[2022-01-15 15:49] LABS: Amphetamine/Metha Screen,Urine Negative ng/ml (<1000)
[2022-01-15 15:50] LABS: Barbiturates Screen,Urine Negative ng/ml (<200)
[2022-01-15 15:51] LABS: Benzodiazepines Screen,Urine Negative ng/ml (<200); Cannabinoid Screen,Urine Negative ng/ml (<50)
[2022-01-15 15:52] LABS: Cocaine Screen,Urine Negative ng/ml (<300); Methadone Screen,Urine Negative ng/ml (<300)
[2022-01-15 15:53] LABS: Bacteria,Urine 1+ /lpf; Opiate Screen,Urine Negative ng/ml (<300)
[2022-01-15 15:54] LABS: Phencyclidine Screen,Urine Negative ng/ml (<25)
[2022-01-15 16:25] LABS: Lymphocytes % 10 % (10-50); Monocytes % 4 % (2-9); Neutrophils % 86 % (42-76); Total Cells Counted 100
[2022-01-15 16:26] LABS: Ovalocytes 1+; Platelet Estimate Normal
[2022-01-15 17:41] VITALS: BP 121/70; PULSE 90; RESP 18; TEMP 36.8; O2SAT 100; BMI 36.8
--- NOTE | 2022-01-16 08:03 | P.PN_ITS ---
[facility] Social History Smoking Status: Never smoker alcohol intake: never counseling provided: none substance use type: denies use current occupational status: employed Travel in the last 8 weeks: None household members: family housing: house [facility] Anesthesia Checklist Patient Identification Patient Identification: Arm Band Structural Data Admitted From: Inpatient Planned Operative Procedure/s: Labor Epidural Consent for Planned Operative Procedure(s) Verified: Yes Verified Documents: Surgical Consent and History and Physical NPO Status Verified Time NPO: 00:00 Additional verifications Anesthesia Reactions: No Airway Assessment C-Spine Mobility Assessed: Yes TMJ Mobility Assessed: Yes Dentition: Good Dentition Neurological Assessment Level of Consciousness: Awake and Alert Anesthesia Plan Anesthesia Risk discussed: Yes Anesthesia Plan: Verified ASA Class: II Anesthesia Type: Epidural
--- NOTE | 2022-01-16 10:39 | EXP.HP ---
History of Present Illness *Admission Date: 01/15/22 *Reason for visit:: Induction of labor *History of present illness: 21 yo G1 @ 38 0/7, induction of labor care at [facility]-- Dr. Killian complicated by macrosomia and maternal anemia Ultrasound evaluation estimated size at 92% for gestational age; SOFIA normal She has experienced decreased movement and desired IOL Cervix 1cm at time of admission and mechanical dilation recommended with cervical balloon She was also treated with 2 doses of oral cytotec over night, and has progressed spontaneously since that point She progressed to 9cm after 2 doses cytotec, and pitocin augmentation was never started heart tracing has been reassuring overall, with intermittent late or variable decelerations [facility] Social History (Reviewed 01/09/22 @ 10:49 by Jahaira Gastelum [facility]) Smoking Status: Never smoker alcohol intake: never counseling provided: none substance use type: denies use current occupational status: employed Travel in the last 8 weeks: None household members: family housing: house Review of Systems Review of Systems Review of systems:: pertinent systems reviewed and negative unless documented below Review of systems (narrative): reports decreased movement Constitutional Constitutional: Reports system reviewed and no additional complaints, except as documented and Denies headache(s) ENT Ears, Nose, Mouth, and Throat: Denies headache(s) *Gastrointestinal Gastrointestinal: Reports nausea and Reports vomiting *Genitourinary Genitourinary: Denies abnormal vaginal bleeding *Neurologic Neurologic: Denies headache(s) and Denies other visual disturbances Meds Home Medications and Allergies Home Medications Medication Instructions Recorded Confirmed Type ondansetron HCl 4 mg tablet 4 mg PO Q6H PRN nausea and 07/16/21 01/15/22 Rx vomiting #30 tabs ferrous sulfate 142 mg (45 mg 142 mg PO DAILY Supplement 01/15/22 01/15/22 History iron) tablet,extended release (Slow Fe) omeprazole magnesium 20 mg 20 mg PO DAILY GERD 01/15/22 01/15/22 History tablet,delayed release (Prilosec OTC) vits no.126-ferrous fum 1 tab PO DAILY Supplement 01/15/22 01/15/22 History 28 mg iron-folic acid 800 mcg tablet (Classic ) New Prescriptions to Start Prescriptions: Allergies Allergy/AdvReac Type Severity Reaction Status Date / Time No Known Allergies Allergy Verified 01/09/22 10:48 Exam Data for Last 24 hours Vital signs and Labs for Last 24 Hours: Temp Pulse Resp BP Pulse Ox 98.2 F 90 18 121/70 100 01/15/22 17:41 01/15/22 17:41 01/15/22 17:41 01/15/22 17:41 01/15/22 17:41 Laboratory Results - last 24 hr 01/15/22 15:15: Urine Color Dk yellow, Urine Appearance Clear, Urine pH 6.0, Ur Specific [place] >= 1.030, Urine Protein Trace, Urine Glucose (UA) Negative, Urine Ketones 1+, Urine Blood Negative, Urine Nitrate Negative, Urine Bilirubin Negative, Urine Urobilinogen 1.0, Ur Leukocyte Esterase Negative, Urine RBC 3-5, Urine WBC 3-5, Ur Squamous Epith Cells 3-5, Urine Bacteria 1+ 01/15/22 15:15: Urine Opiates Screen Negative, Urine Methadone Screen Negative, Ur Barbituates Screen Negative, Ur Phencyclidine Scrn Negative, Ur Amphetamines Screen Negative, U Benzodiazepines Scrn Negative, Urine Cocaine Screen Negative, U Marijuana (THC) Screen Negative 01/15/22 15:30: SARS-CoV-2 (PCR) Not detected, Influenza A Untype (PCR) Not detected, Influenza Type B (PCR) Not detected 01/15/22 15:35: WBC 11.0 H, RBC 4.34, Hgb 10.5 L, Hct 32.2 L, MCV 74.2 L, MCH 24.3 L, MCHC 32.7, RDW 16.1, Plt Count 267, MPV 10.3, Neut % (Auto) 82.0 H, Lymph % (Auto) 12.3, Martin % (Auto) 5.0, Eos % (Auto) 0.5, Baso % (Auto) 0.2, Neut # (Auto) 9.0 H, Lymph # (Auto) 1.3, Martin # (Auto) 0.6, Eos # (Auto) 0.1, Baso # (Auto) 0.0, Total Counted 100, Neutrophils % (Manual) 86 H, Lymphocytes % (Manual) 10, Monocytes % (
--- NOTE | 2022-01-16 14:24 | EXP.DN ---
Delivery Note Delivery Date:: 01/16/22 Delivery Time:: 12:47 Anesthesia Type: Epidural Was labor medically induced?: Yes Induction method: per misoprostol protocol Gestational age (weeks): 38 Infant delivered prior to 39 weeks?: Yes Justification for early elective delivery:: Distress (decreased movement) Infant Gender: Female at 1 minute: 7 at 5 minutes: 9 LAC or MLE?: LAC Delivery Procedure:: Spontaneous vaginal delivery of live born female infant over intact perineum. Delivery uncomplicated Nuchal cord x 1 reduced on perineum No shoulder dystocia with delivery Infant placed in NADIRA immediately after delivery, with standard nursing assessment performed Infant Apgars: 7 & 9 Placenta spontaneously expressed and examined; noted to be complete/intact. Vulva, vagina, and cervix inspected; second degree laceration repaired in layers with 2-0 vicryl left labial laceration sutured for hemostasis EBL: 300 cc All sponge/needle/instrument counts correct at conclusion of procedure Laceration:: vaginal Placental Delivery Description: Spontaneous
[2022-01-16 15:23] VITALS: BP 131/71; PULSE 79; RESP 18; TEMP 36.7
[2022-01-17 07:25] LABS: Hematocrit 26.1 % (37.0-47.0); Hemoglobin 8.5 g/dL (12.2-16.2)
[2022-01-17 07:55] VITALS: BP 121/62; PULSE 87; RESP 18; TEMP 36.8; O2SAT 98
--- NOTE | 2022-01-17 14:02 | EXP.DC.SUM ---
General Admission date:: 01/15/22 Discharge date: 01/17/22 HPI HPI HPI: 21 yo G1 @ 38 0/, induction of labor care at [facility]-- Dr. Killian complicated by macrosomia and maternal anemia Ultrasound evaluation estimated size at 92% for gestational age; SOFIA normal She has experienced decreased movement and desired IOL Cervix 1cm at time of admission and mechanical dilation recommended with cervical balloon She was also treated with 2 doses of oral cytotec over night, and has progressed spontaneously since that point She progressed to 9cm after 2 doses cytotec, and pitocin augmentation was never started heart tracing has been reassuring overall, with intermittent late or variable decelerations Hospital Course Hospital Course Hospital Course: Normal spontaneous vaginal delivery course uncomplicated She is discharged home on PPD #1 in stable condition She is tolerating a regular diet, she is ambulating and voiding without difficulty She is asymptomatic with acute blood loss anemia, superimposed on chronic anemia during Hgb is 8.5 on PPD #1 and lochia is appropriate Exam Data for Last 24 hours Vital signs and Labs for Last 24 Hours: Temp Pulse Resp BP Pulse Ox 98.3 F 87 18 121/62 98 01/17/22 07:55 01/17/22 07:55 01/17/22 07:55 01/17/22 07:55 01/17/22 07:55 Laboratory Results - last 24 hr 01/17/22 07:10: Hgb 8.5 L, Hct 26.1 L I & O for Last 24 hours: Intake & Output 01/15/22 01/16/22 01/17/22 01/18/22 11:59 11:59 11:59 11:59 Weight 215 lb Constitutional Constitutional: no acute distress *Routine HEENT Exam Head: Present normocephalic Eye: Absent conjunctival icterus or scleral injection ENT: Present mucous membranes moist *Routine Neck Exam Neck: Present supple *Routine Respiratory Exam Respiratory: Present CTA bilaterally *Routine Cardiovascular Exam Cardiovascular: Present RRR *Routine Abdominal Exam Abdominal: Present soft; Absent tenderness or distended *Routine Rectal Exam Patient deferred: visual exam and digital exam *Routine Exam Patient deferred: external exam Comments: Fundus firm below umbilicus *Routine Extremities Exam Extremities: Present edema *Routine Neurological Exam Neurological: Present alert and oriented X3 Routine Psychiatric Exam Psychiatric: Present normal affect; Absent depressed Results Data Completed and Pending Labs on day of discharge: Labs from last 24 hours 01/17/22 07:10 Hgb 8.5 L Hct 26.1 L DS: Diagnosis Discharge Diagnosis (1) 38 weeks gestation of : Status: Acute (2) Decreased movements, third trimester, not applicable or unspecified: Status: Acute (3) Large for gestational age fetus: Status: Acute (4) Macrosomia affecting management of mother in third trimester: Status: Acute (5) Anemia during : Status: Acute Meds Home Medications and Allergies Home Medications Medication Instructions Recorded Confirmed Type ondansetron HCl 4 mg tablet 4 mg PO Q6H PRN nausea and 07/16/21 01/15/22 Rx vomiting #30 tabs ferrous sulfate 142 mg (45 mg 142 mg PO DAILY Supplement 01/15/22 01/15/22 History iron) tablet,extended release (Slow Fe) omeprazole magnesium 20 mg 20 mg PO DAILY GERD 01/15/22 01/15/22 History tablet,delayed release (Prilosec OTC) vits no.126-ferrous fum 1 tab PO DAILY Supplement 01/15/22 01/15/22 History 28 mg iron-folic acid 800 mcg tablet (Classic ) New Prescriptions to Start Prescriptions: Allergies Allergy/AdvReac Type Severity Reaction Status Date / Time No Known Allergies Allergy Verified 01/09/22 10:48 Discharge Plan Disposition Patient Disposition: Home, Self-Care Discharge Order Discharge Orders: Discharge Order (Routine); Ordered 01/17/22 Ordered By: Mallory Killian Follow up Plan Follow up with: Andrei Killian
== END 2022-01-17 16:17 | disposition home or self-care (01) | DRG 807 ==
PROVIDERS: Admitting Provider Obstetrics & Gynecology; PCP Family Medicine; Visit Provider Obstetrics & Gynecology
DX: O36.8130 Decreased fetal movements, third trimester, not applicable or unspecified (principal); Z37.0 Single live birth; O36.63X0 Maternal care for excessive fetal growth, third trimester, not applicable or unspecified; Z3A.38 38 weeks gestation of pregnancy; O99.02 Anemia complicating childbirth; O69.81X0 Labor and delivery complicated by cord around neck, without compression, not applicable or unspecified; O77.9 Labor and delivery complicated by fetal stress, unspecified; O70.1 Second degree perineal laceration during delivery
CPT/HCPCS: 59409; 36415; 59025; 80305; 81001; 85007; 85014; 85018; 85048; 85049; 86850; 94761; C9803; G0283; J0595; J2405; U0003; U0005

== ENCOUNTER 2022-02-07 21:01 | Outpatient (CLI) | payer OTHER, SELFPAY ==
[2022-02-07 21:07] VITALS: BMI 31.7
--- NOTE | 2022-02-07 21:08 | US_ITS ---
PROCEDURE INFORMATION: Exam: US Pelvis Complete, Transabdominal and US Duplex Artery and Vein, Ovaries, Complete Exam date and time: 02/07/2022 9:32 PM Age: 21 years old Clinical indication: Other: Post x 3 wks bleeding and clots; Additional info: 3 wks with bright red bleeding TECHNIQUE: Imaging protocol: Real-time transabdominal pelvic ultrasound with image documentation. Real-time duplex ultrasound scan of the arterial and venous flow of the ovaries with B-mode, color Doppler flow and spectral waveform analysis. Complete Pelvis, Complete Duplex. Duplex exam was performed to evaluate for torsion and other vascular conditions. COMPARISON: No relevant prior studies available. FINDINGS: Uterus: Mildly enlarged uterus measures 11.9 x 5.3 x 8.4 cm. Endometrial stripe thickness: Heterogeneously relatively avascular endometrium measuring approximately 1.2 cm in thickness containing debris, blood/fluid. Right ovary/adnexa: Measures approximately 3.1 mL. Dominant simple anechoic RIGHT ovarian cyst/follicle measuring approximately 1.2 cm. Left ovary/adnexa: Measures approximately 10.4 mL. Dominant simple anechoic LEFT ovarian cyst/follicle measuring approximately 1.7 x 1.1 cm. Intraperitoneal space: No discernible adnexal mass or abnormality. No free fluid within the pelvis. Urinary bladder: Near empty urinary bladder. Other findings: Doppler examination of the ovaries with pulsed wave and color images was performed which demonstrate arterial/venous waveforms within normal limits. IMPRESSION: 1. Heterogeneous relatively avascular endometrium demonstrating blood/debris. 2. Differential diagnosis includes normal changes, retained products of conception and acute endometritis. 3. Recommend correlation with pertinent clinical history and follow-up as indicated. 4. Normal ovaries demonstrating blood flow on Doppler.
--- NOTE | 2022-02-07 21:10 | PC.NURSE ---
Patient arrived to unit at this time.
[2022-02-07 21:27] LABS: Basophils # 0.1 K/mm3 (0-0.2); Basophils % 1.3 % (0.1-2.0); Eosinophils # 0.6 K/mm3 (0.0-0.4); Eosinophils % 6.9 % (0.1-12.0); Hematocrit 36.6 % (37.0-47.0); Hemoglobin 11.6 g/dL (12.2-16.2); Lymphocytes # 1.7 K/mm3 (0.7-4.5); Lymphocytes % 21.4 % (10-50); Mean Corpuscular HGB Conc 31.6 g/dL (31.8-35.4); Mean Corpuscular Hemoglobin 23.5 pg (27.0-31.2); Mean Corpuscular Volume 74.4 fl (81-99); Mean Platelet Volume 7.7 fl (7.4-10.4); Monocytes # 0.3 K/mm3 (0.1-1.0); Monocytes % 4.1 % (1.7-9.3); Neutrophils # 5.3 K/mm3 (1.8-7.8); Neutrophils % 66.3 % (37.0-80.0); Platelet Count 388 K/mm3 (142-424); Red Blood Count 4.92 M/mm3 (4.20-5.40); Red Cell Distribution Width 18.5 % (11.5-17.5); White Blood Count 7.9 K/mm3 (4.8-10.8)
--- NOTE | 2022-02-07 21:28 | PC.NURSE ---
Dr. Delgado notified of patient concerns of not being able to tolerate transvaginal U/S. MD low with transabdominal.
[2022-02-07 21:33] LABS: Chloride 104 mmol/L (98-107); Potassium 3.3 mmoL/L (3.5-5.1); Sodium 140 mmol/L (136-145)
[2022-02-07 21:36] LABS: Alanine Aminotransferase 22 U/L (12-78); Albumin Level 4.2 g/dl (3.5-5.0); Albumin/Globulin Ratio 1.4 (1.1-1.8); Alkaline Phosphatase 106 U/L (38-126); Anion Gap 15.3 mEq/L (5-15); Aspartate Amino Transferase 30 U/L (14-36); Bilirubin,Total 0.3 mg/dl (0.2-1.3); Blood Urea Nitrogen 11 mg/dl (7-17); Carbon Dioxide 24 mmol/L (22.0-30.0); Creatinine Clearance Estimated 166 mL/min (50-200); Estimated Glomerular Filt Rate 104 ml/min (>60); GFR (African American) 125 ML/MIN (>60); Globulin 3.1 g/dL (1.3-3.2); Total Protein,Serum 7.3 g/dl (6.3-8.2)
[2022-02-07 21:37] LABS: Glucose 122 mg/dl (74-100)
--- NOTE | 2022-02-07 22:05 | PC.NURSE ---
Coni radiologist spoke with dr barrera at this time
--- NOTE | 2022-02-07 22:06 | PC.NURSE ---
addendum, states pt may discharge home
--- NOTE | 2022-02-07 22:06 | PC.NURSE ---
spoke with dr barrera at this time, new orders received for ua, rocephin 250mg im x 1 dose now, and vaginal swab, phone order repeated and verified
--- NOTE | 2022-02-07 22:13 | PC.NURSE ---
Spoke with Rafi in pharmacy regarding rocephin and .
[2022-02-07 22:45] LABS: Microscopic, Urine URINE MICROSCOPIC (MICROSCOPIC)
[2022-02-07 22:48] LABS: Appearance,Urine CLOUDY (Clear); Bilirubin,Urine Negative (Negative); Blood, Urine 3+ (Negative); Color,Urine YELLOW (Yellow); Glucose,Urine (UA) Negative (Negative); Ketones,Urine Negative (Negative); Leukocyte Esterase,Urine 1+ (Negative); Nitrate,Urine Negative (Negative); Protein,Urine 1+ (Negative); Specific Gravity, Urine >= 1.030 (1.005-1.030); Urobilinogen,Urine 0.2 EU/dl (0.2)
[2022-02-07 22:52] LABS: RBC,Urine 50-100 #/hpf (0-3); Squamous Epithelial Cell,Urine 20-50 #/hpf (0-5); WBC,Urine 50-100 #/hpf (0-3)
== END 2022-02-07 22:44 | disposition home or self-care (01) ==
LOC: OBOUT 21:02 → OB 21:03
PROVIDERS: PCP Family Medicine; Visit Provider Nurse Practitioner Obstetrics & Gynecology
DX: O72.1 Other immediate postpartum hemorrhage (principal)
CPT/HCPCS: 76856; 80053; 81001; 85025; 87070; 87086; 87088; 87205; 96372; J0696

== ENCOUNTER 2022-02-09 09:11 | Observation (INO) | payer OTHER, SELFPAY ==
[2022-02-08 12:17] VITALS: BMI 31.7
--- NOTE | 2022-02-08 12:49 | EXP.PHA.CONS ---
Pharmacy Consult Date: 02/08/22 Time: 12:49 Referring provider: DR. MENESES Reason for Consult:: GENTAMICIN DOSING Allergies Allergy/AdvReac Type Severity Reaction Status Date / Time No Known Allergies Allergy Verified 01/09/22 10:48 Home Medications Medication Instructions Recorded Confirmed Type ondansetron HCl 4 mg tablet 4 mg PO Q6H PRN nausea and 07/16/21 01/15/22 Rx vomiting #30 tabs ferrous sulfate 142 mg (45 mg 142 mg PO DAILY Supplement 01/15/22 01/15/22 History iron) tablet,extended release (Slow Fe) omeprazole magnesium 20 mg 20 mg PO DAILY GERD 01/15/22 01/15/22 History tablet,delayed release (Prilosec OTC) vits no.126-ferrous fum 1 tab PO DAILY Supplement 01/15/22 01/15/22 History 28 mg iron-folic acid 800 mcg tablet (Classic ) ibuprofen 400 mg tablet 800 mg PO Q6HP PRN Mild To 01/17/22 Rx Moderate Pain #30 tabs New Prescriptions to Start Prescriptions: Height: 1.63 m Weight: 83.915 kg Laboratory Results:: N/A Assessment and Plan Assessment and plan all Dx Assessment and Plan for all problems:: Pharmacokinetic dosing service Objective: Patient: Floor: Age: 21 yo Serum creatinine: 0.70 mg/dL Height: 64.2 Inches Weight (kg): 83.9 Assessment: IBW (kg): 55.16 Dosing wt(kg): 66.7 Estimated Creatinine clearance (ml/min): 108.8 CRCL method: Cockcroft and Gault using ibw(default). Drug selected: Gentamicin Loading dose (mg): 0 Vd (liters): 20.0 (factor used: 0.3 L/kg) Ronald (hr-1): 0.333 Half life (hrs): 2.08 Recommended dose: 380 mg Interval: 24 hrs Infusion time (hrs): 1 Predicted peak (mcg/mL): 16.2 Predicted trough (mcg/mL): 0.01 Recommendations: Give Gentamicin 380 mg q 24 hrs with an expected Cpeak of 16.2 mcg/ml and an expected Ctrough of 0.01 mcg/ml Thank you for the consult, will continue to follow. -HCON BARNESD
[2022-02-08 12:52] LABS: Basophils % 0.5 % (0.1-2.0); Eosinophils # 0.6 K/mm3 (0.0-0.4); Hematocrit 37.8 % (37.0-47.0); Hemoglobin 10.9 g/dL (12.2-16.2); Lymphocytes # 1.4 K/mm3 (0.7-4.5); Lymphocytes % 17.2 % (10-50); Mean Corpuscular HGB Conc 28.9 g/dL (31.8-35.4); Mean Corpuscular Hemoglobin 22.9 pg (27.0-31.2); Mean Corpuscular Volume 79.2 fl (81-99); Monocytes # 0.3 K/mm3 (0.1-1.0); Monocytes % 4.3 % (1.7-9.3); Neutrophils # 5.5 K/mm3 (1.8-7.8); Platelet Count 359 K/mm3 (142-424); Red Blood Count 4.77 M/mm3 (4.20-5.40); Red Cell Distribution Width 17.1 % (11.5-17.5); White Blood Count 7.8 K/mm3 (4.8-10.8)
[2022-02-08 13:00] VITALS: BP 101/61; PULSE 78; RESP 20; TEMP 36.7; O2SAT 98
[2022-02-08 13:11] LABS: Coronavirus 19, PCR Not Detected (NotDetected); Influenza A, PCR Not Detected (NotDetected); Influenza B, PCR Not Detected (NotDetected)
[2022-02-08 13:12] LABS: Chloride 104 mmol/L (98-107); Potassium 4.3 mmoL/L (3.5-5.1); Sodium 136 mmol/L (136-145)
--- NOTE | 2022-02-08 13:12 | EXP.HP ---
History of Present Illness *Admission Date: 02/08/22 *Reason for visit:: Possible early endometritis *History of present illness: She is a 21-year-old 1 now para 1 approximately 3 weeks . She had some body aches a few days ago and passed some tissue. She had some increased bleeding yesterday. She was seen in labor and delivery and did have some tachycardia but no other evidence of sepsis. She received 1 dose of Rocephin and was discharged home. We elected to bring her back in for IV antibiotics for 48 hours. Her uterus was quite tender when she had an ultrasound yesterday. Ultrasound showed some clots within the uterus but no retained products. White blood cell count was normal yesterday as was her temperature. She was slightly tachycardic. PFSH PFS Social History Smoking Status: Never smoker alcohol intake: never counseling provided: none substance use type: denies use current occupational status: employed Travel in the last 8 weeks: None household members: family housing: house Review of Systems Review of Systems Review of systems:: pertinent systems reviewed and negative unless documented below Meds Home Medications and Allergies Home Medications Medication Instructions Recorded Confirmed Type ondansetron HCl 4 mg tablet 4 mg PO Q6H PRN nausea and 07/16/21 01/15/22 Rx vomiting #30 tabs ferrous sulfate 142 mg (45 mg 142 mg PO DAILY Supplement 01/15/22 01/15/22 History iron) tablet,extended release (Slow Fe) omeprazole magnesium 20 mg 20 mg PO DAILY GERD 01/15/22 01/15/22 History tablet,delayed release (Prilosec OTC) vits no.126-ferrous fum 1 tab PO DAILY Supplement 01/15/22 01/15/22 History 28 mg iron-folic acid 800 mcg tablet (Classic ) ibuprofen 400 mg tablet 800 mg PO Q6HP PRN Mild To 01/17/22 Rx Moderate Pain #30 tabs New Prescriptions to Start Prescriptions: Allergies Allergy/AdvReac Type Severity Reaction Status Date / Time No Known Allergies Allergy Verified 01/09/22 10:48 Exam Data for Last 24 hours Vital signs and Labs for Last 24 Hours: Temp Pulse Resp BP Pulse Ox 98.0 F 78 20 101/61 L 98 02/08/22 13:00 02/08/22 13:00 02/08/22 13:00 02/08/22 13:00 02/08/22 13:00 Laboratory Results - last 24 hr 02/08/22 12:27: WBC 7.8, RBC 4.77, Hgb 10.9 L, Hct 37.8, MCV 79.2 L, MCH 22.9 L, MCHC 28.9 L, RDW 17.1, Plt Count 359, MPV 7.0 L, Neut % (Auto) 71.0, Lymph % (Auto) 17.2, [place] % (Auto) 4.3, Eos % (Auto) 7.0, Baso % (Auto) 0.5, Neut # (Auto) 5.5, Lymph # (Auto) 1.4, [place] # (Auto) 0.3, Eos # (Auto) 0.6 H, Baso # (Auto) 0.0 02/08/22 12:27: Chloride 104 02/08/22 12:27: SARS-CoV-2 (PCR) Not detected, Influenza A Untype (PCR) Not detected, Influenza Type B (PCR) Not detected I & O for Last 24 hours: Intake & Output 02/06/22 02/07/22 02/08/22 02/09/22 11:59 11:59 11:59 11:59 Weight 185 lb Constitutional Constitutional: no acute distress *Routine HEENT Exam Head: Present normocephalic Eye: Present EOMI and PERRL ENT: Present mucous membranes moist *Routine Neck Exam Neck: Present supple; Absent lymphadenopathy *Routine Respiratory Exam Respiratory: Present CTA bilaterally *Routine Cardiovascular Exam Cardiovascular: Present RRR *Routine Abdominal Exam Abdominal: Present soft and normoactive bowel sounds; Absent tenderness *Routine Rectal Exam Rectal:: deferred *Routine Genitalia Exam Genitalia:: deferred *Routine Extremities Exam Extremities: Absent cyanosis, clubbing or edema *Routine Skin Exam Skin: Present warm; Absent rash *Routine Neurological Exam Neurological: Present alert and oriented X3 Assessment and Plan *Assessment and plan (1) Anemia during : Status: Acute Category: Medical Code(s): O99.019 - Anemia complicating , unspecified trimester (2) Endometritis following delivery:
--- NOTE | 2022-02-08 13:13 | PC.NURSE ---
verified medication with pharmacy to see if compat. with
[2022-02-08 13:14] LABS: Blood Urea Nitrogen 8 mg/dl (7-17); Creatinine Clearance Estimated 166 mL/min (50-200); Estimated Glomerular Filt Rate 104 ml/min (>60); GFR (African American) 125 ML/MIN (>60)
[2022-02-08 13:15] LABS: Alanine Aminotransferase 16 U/L (12-78); Albumin Level 3.9 g/dl (3.5-5.0); Albumin/Globulin Ratio 1.4 (1.1-1.8); Alkaline Phosphatase 100 U/L (38-126); Anion Gap 10.3 mEq/L (5-15); Aspartate Amino Transferase 28 U/L (14-36); Bilirubin,Total 0.4 mg/dl (0.2-1.3); Calcium 9.3 mg/dl (8.4-10.2); Carbon Dioxide 26 mmol/L (22.0-30.0); Globulin 2.7 g/dL (1.3-3.2); Glucose 80 mg/dl (74-100); Total Protein,Serum 6.6 g/dl (6.3-8.2)
[2022-02-08 13:30] VITALS: O2SAT 98
--- NOTE | 2022-02-08 17:50 | PC.NURSE ---
NO COMPLAINTS FROM PATIENT THIS SHIFT. ANTIBIOTICS WERE GIVEN PER ORDER FROM DR MENESES. REPORTS NO PAIN THIS SHIFT. BLEEDING HAS BEEN NORMAL LOCHIA. VITALS WNL. PT AMBULATORY (INDEPENDENT) WITH NO ISSUES.
--- NOTE | 2022-02-08 19:01 | PC.NURSE ---
REPORT TO Keith RAMOS RN
[2022-02-09 00:14] VITALS: BP 111/54; PULSE 70; RESP 16; TEMP 37
[2022-02-09 06:13] VITALS: BP 106/57; PULSE 64; RESP 17; TEMP 36.7
--- NOTE | 2022-02-09 07:10 | PC.NURSE ---
report received from dhruv [place]
[2022-02-09 08:00] VITALS: BP 108/54; PULSE 73; RESP 18; TEMP 36.7; O2SAT 99
[2022-02-09 12:00] LABS: Basophils % 0.8 % (0.1-2.0); Eosinophils # 0.4 K/mm3 (0.0-0.4); Eosinophils % 8.1 % (0.1-12.0); Hematocrit 37.6 % (37.0-47.0); Hemoglobin 11.7 g/dL (12.2-16.2); Lymphocytes # 1.4 K/mm3 (0.7-4.5); Lymphocytes % 28.7 % (10-50); Mean Corpuscular Hemoglobin 23.5 pg (27.0-31.2); Mean Corpuscular Volume 75.8 fl (81-99); Mean Platelet Volume 7.5 fl (7.4-10.4); Monocytes # 0.3 K/mm3 (0.1-1.0); Monocytes % 6.2 % (1.7-9.3); Neutrophils # 2.8 K/mm3 (1.8-7.8); Neutrophils % 56.1 % (37.0-80.0); Platelet Count 393 K/mm3 (142-424); Red Blood Count 4.97 M/mm3 (4.20-5.40); Red Cell Distribution Width 18.8 % (11.5-17.5)
--- NOTE | 2022-02-09 12:05 | PC.NURSE ---
dr barrera at bedside.
[2022-02-09 12:09] LABS: Alanine Aminotransferase 16 U/L (12-78); Albumin Level 4.1 g/dl (3.5-5.0); Albumin/Globulin Ratio 1.4 (1.1-1.8); Alkaline Phosphatase 107 U/L (38-126); Anion Gap 17.9 mEq/L (5-15); Aspartate Amino Transferase 28 U/L (14-36); Bilirubin,Total 0.2 mg/dl (0.2-1.3); Blood Urea Nitrogen 10 mg/dl (7-17); Calcium 9.1 mg/dl (8.4-10.2); Carbon Dioxide 29 mmol/L (22.0-30.0); Chloride 97 mmol/L (98-107); Creatinine Clearance Estimated 145 mL/min (50-200); Estimated Glomerular Filt Rate 89 ml/min (>60); GFR (African American) 108 ML/MIN (>60); Glucose 90 mg/dl (74-100); Potassium 3.9 mmoL/L (3.5-5.1); Sodium 140 mmol/L (136-145); Total Protein,Serum 7.1 g/dl (6.3-8.2)
[2022-02-09 12:17] LABS: Gentamicin,Trough < 0.6 ug/ml (0.0-2.0)
--- NOTE | 2022-02-09 12:18 | EXP.ACUTE.PN ---
Subjective *Date: 02/09/22 *Time: 12:18 Interval history: She continues to do very well. She feels well. Her lochia is normal. She continues to breast-feed. She is afebrile. Her blood counts are stable. Her white blood cell count is 5.0. Pulse is not elevated. Medical Exam Vital signs and Labs for Last 24 Hours: Vital Signs Temp Pulse Resp BP Pulse Ox 02/09/22 08:00 98.1 F 73 18 108/54 L 99 02/09/22 08:00 99 02/09/22 06:13 98.0 F 64 17 106/57 L 02/09/22 00:14 98.6 F 70 16 111/54 L 02/08/22 13:30 98 02/08/22 13:00 98.0 F 78 20 101/61 L 98 Intake and Output 02/09/22 02/09/22 02/09/22 03:59 11:59 19:59 Output Total 0 / 0 0 / 0 Balance 0 / 0 0 / 0 Output: Output, Urine Amount 0 / 0 0 / 0 Other: Number of Unmeasured Voids 1 1 Laboratory Results - last 24 hr 02/08/22 12:27: WBC 7.8, RBC 4.77, Hgb 10.9 L, Hct 37.8, MCV 79.2 L, MCH 22.9 L, MCHC 28.9 L, RDW 17.1, Plt Count 359, MPV 7.0 L, Neut % (Auto) 71.0, Lymph % (Auto) 17.2, [place] % (Auto) 4.3, Eos % (Auto) 7.0, Baso % (Auto) 0.5, Neut # (Auto) 5.5, Lymph # (Auto) 1.4, [place] # (Auto) 0.3, Eos # (Auto) 0.6 H, Baso # (Auto) 0.0 02/08/22 12:27: Sodium 136, Potassium 4.3 D, Chloride 104, Carbon Dioxide 26, Anion Gap 10.3, BUN 8 D, Creatinine 0.70, Estimated Creat Clear 166, Estimated GFR 104, Est GFR ( Amer) 125, Glucose 80 D, Calcium 9.3, Total Bilirubin 0.4, AST 28, ALT 16 D, Alkaline Phosphatase 100, Total Protein 6.6, Albumin 3.9, Globulin 2.7, Albumin/Globulin Ratio 1.4 02/08/22 12:27: SARS-CoV-2 (PCR) Not detected, Influenza A Untype (PCR) Not detected, Influenza Type B (PCR) Not detected 02/09/22 11:50: Gentamicin Trough < 0.6 02/09/22 11:50: WBC 5.0 D, RBC 4.97, Hgb 11.7 L, Hct 37.6, MCV 75.8 L, MCH 23.5 L, MCHC 31.0 L, RDW 18.8 H, Plt Count 393, MPV 7.5, Neut % (Auto) 56.1, Lymph % (Auto) 28.7, [place] % (Auto) 6.2, Eos % (Auto) 8.1, Baso % (Auto) 0.8, Neut # (Auto) 2.8, Lymph # (Auto) 1.4, [place] # (Auto) 0.3, Eos # (Auto) 0.4, Baso # (Auto) 0.0 02/09/22 11:50: Sodium 140, Potassium 3.9, Chloride 97 L, Carbon Dioxide 29, Anion Gap 17.9 H, BUN 10, Creatinine 0.80, Estimated Creat Clear 145, Estimated GFR 89, Est GFR ( Amer) 108, Glucose 90, Calcium 9.1, Total Bilirubin 0.2, AST 28, ALT 16, Alkaline Phosphatase 107, Total Protein 7.1, Albumin 4.1, Globulin 3.0, Albumin/Globulin Ratio 1.4 I & O for Labs for Last 24 Hours: Intake & Output 02/07/22 02/08/22 02/09/22 02/10/22 11:59 11:59 11:59 11:59 Output Total 0 / 0 Balance 0 / 0 Weight 185 lb Constitutional: Present no acute distress ENT: Present normal exam Respiratory: Present normal respiratory effort Assessment and Plan *Assessment and plan (1) Endometritis following delivery: Status: Acute Category: Medical Code(s): O86.12 - Endometritis following delivery (2) Anemia during : Status: Acute Category: Medical Code(s): O99.019 - Anemia complicating , unspecified trimester Plan She continues to do very well. We will plan to continue with her IV antibiotics until tomorrow. We will discharge her home tomorrow.
--- NOTE | 2022-02-09 13:03 | P.CONPHA_ITS ---
Pharmacy Consult Date: 02/09/22 Time: 13:03 Referring provider: DR. MENESES Reason for Consult:: GENTAMICIN TROUGH LEVEL Allergies Allergy/AdvReac Type Severity Reaction Status Date / Time No Known Allergies Allergy Verified 01/09/22 10:48 Home Medications Medication Instructions Recorded Confirmed Type ferrous sulfate 142 mg (45 mg 142 mg PO DAILY Supplement 01/15/22 02/08/22 His tory iron) tablet,extended release (Slow Fe) omeprazole magnesium 20 mg 20 mg PO DAILY GERD 01/15/22 02/08/22 History tablet,delayed release (Prilosec OTC) vits no.126-ferrous fum 1 tab PO DAILY Supplement 01/15/22 02/08/22 History 28 mg iron-folic acid 800 mcg tablet (Classic ) ibuprofen 400 mg tablet 800 mg PO Q6HP PRN Mild To 01/17/22 02/08/22 Rx Moderate Pain #30 tabs New Prescriptions to Start Prescriptions: Height: 1.63 m Weight: 83.915 kg Laboratory Results:: Laboratory Results - last 24 hr 02/08/22 12:27: Sodium 136, Potassium 4.3 D, Chloride 104, Carbon Dioxide 26, Anion Gap 10.3, BUN 8 D, Creatinine 0.70, Estimated Creat Clear 166, Estimated GFR 104, Est GFR ( Amer) 125, Glucose 80 D, Calcium 9.3, Total Bilirubin 0.4, AST 28, ALT 16 D, Alkaline Phosphatase 100, Total Protein 6.6, Albumin 3.9, Globulin 2.7, Albumin/Globulin Ratio 1.4 02/08/22 12:27: SARS-CoV-2 (PCR) Not detected, Influenza A Untype (PCR) Not detected, Influenza Type B (PCR) Not detected 02/09/22 11:50: Gentamicin Trough < 0.6 02/09/22 11:50: WBC 5.0 D, RBC 4.97, Hgb 11.7 L, Hct 37.6, MCV 75.8 L, MCH 23.5 L, MCHC 31.0 L, RDW 18.8 H, Plt Count 393, MPV 7.5, Neut % (Auto) 56.1, Lymph % (Auto) 28.7, [place] % (Auto) 6.2, Eos % (Auto) 8.1, Baso % (Auto) 0.8, Neut # (Auto) 2.8, Lymph # (Auto) 1.4, [place] # (Auto) 0.3, Eos # (Auto) 0.4, Baso # (Auto) 0.0 02/09/22 11:50: Sodium 140, Potassium 3.9, Chloride 97 L, Carbon Dioxide 29, Anion Gap 17.9 H, BUN 10, Creatinine 0.80, Estimated Creat Clear 145, Estimated GFR 89, Est GFR ( Amer) 108, Glucose 90, Calcium 9.1, Total Bilirubin 0.2, AST 28, ALT 16, Alkaline Phosphatase 107, Total Protein 7.1, Albumin 4.1, Globulin 3.0, Albumin/Globulin Ratio 1.4 Assessment and Plan Assessment and plan all Dx Assessment and Plan for all problems:: GENTAMICIN TROUGH LEVEL TODAY WAS <0.6. RECOMMEND CONTINUING CURRENT DOSE OF GENTAMICIN AT 380MG IV EVERY 24 HOURS. PHARMACY WILL CONTINUE TO MONITOR. -JAMIE ALFARO, CHOND
--- NOTE | 2022-02-09 16:11 | PC.NURSE ---
REASSESSMENT DONE AT THIS TIME. NO CHANGES. LUNGS CTA AND BOWEL SOUNDS ACTIVE X4. NORMAL LOCHIA PER PATIENT. IV ANTIBIOTICS TODAY PER ORDER. ADEQUATE URINE OUTPUT TODAY. NO NEEDS.
--- NOTE | 2022-02-09 19:20 | PC.NURSE ---
REPORT TO Tyshawn BARROW RN
--- NOTE | 2022-02-09 19:39 | PC.NURSE ---
Report received from Narda Fulton RN
[2022-02-09 19:40] VITALS: O2SAT 97
--- NOTE | 2022-02-10 04:19 | PC.NURSE ---
REASSESSMENT, NO ACUTE CHANGES, PT DOING WELL, SMALL AMOUNT OF LOCHIA PER PT REPORTS, IV ANTIBIOTICS CONTINUE, NO DISTRESS NOTED AT THIS TIME
[2022-02-10 06:06] VITALS: BP 116/58; PULSE 85; RESP 18; TEMP 36.6
[2022-02-10 09:00] VITALS: BP 111/58; PULSE 70; RESP 18; TEMP 36.6; O2SAT 98
--- NOTE | 2022-02-10 12:11 | EXP.DC.SUM ---
General Admission date:: 02/09/22 Discharge date: 02/10/22 HPI HPI HPI: She is a 21-year-old 1 now para 1 approximately 3 weeks . She had some body aches a few days ago and passed some tissue. She had some increased bleeding yesterday. She was seen in labor and delivery and did have some tachycardia but no other evidence of sepsis. She received 1 dose of Rocephin and was discharged home. We elected to bring her back in for IV antibiotics for 48 hours. Her uterus was quite tender when she had an ultrasound yesterday. Ultrasound showed some clots within the uterus but no retained products. White blood cell count was normal yesterday as was her temperature. She was slightly tachycardic. Hospital Course Hospital Course Hospital Course: IV antibiotics (amp, gent, clinda) x 48 hours WBC normal throughout admission: 7.9, 7.8, 5.0 Hgb improved significantly from time of discharge after delivery, but stable throughout admission (11.6, 10.9 0 Endometritis diagnosis based on uterine tenderness during ultrasound but she remains afebrile with normal white count and exam is benign she is s/p 48 hours IV antibiotics and continued po antibiotics not indicated she has been given precautions to watch for and will f/u in office in 1 week Exam Data for Last 24 hours Vital signs and Labs for Last 24 Hours: Temp Pulse Resp BP Pulse Ox 97.8 F 70 18 111/58 L 98 02/10/22 09:00 02/10/22 09:00 02/10/22 09:00 02/10/22 09:00 02/10/22 09:00 Laboratory Results - last 24 hr 02/09/22 11:50: Gentamicin Trough < 0.6 02/09/22 11:50: Sodium 140, Potassium 3.9, Chloride 97 L, Carbon Dioxide 29, Anion Gap 17.9 H, BUN 10, Creatinine 0.80, Estimated Creat Clear 145, Estimated GFR 89, Est GFR ( Amer) 108, Glucose 90, Calcium 9.1, Total Bilirubin 0.2, AST 28, ALT 16, Alkaline Phosphatase 107, Total Protein 7.1, Albumin 4.1, Globulin 3.0, Albumin/Globulin Ratio 1.4 I & O for Last 24 hours: Intake & Output 02/08/22 02/09/22 02/10/22 02/11/22 11:59 11:59 11:59 11:59 Output Total 0 / 0 Balance 0 / 0 Weight 185 lb 185 lb Constitutional Constitutional: no acute distress *Routine HEENT Exam Head: Present normocephalic Eye: Absent conjunctival icterus or scleral injection ENT: Present mucous membranes moist *Routine Neck Exam Neck: Present supple *Routine Respiratory Exam Respiratory: Present CTA bilaterally *Routine Cardiovascular Exam Cardiovascular: Present RRR *Routine Abdominal Exam Abdominal: Present soft; Absent tenderness or distended *Routine Rectal Exam Patient deferred: visual exam and digital exam *Routine Exam Patient deferred: external exam Comments: Fundus firm below umbilicus, non-tender *Routine Extremities Exam Extremities: Present edema *Routine Neurological Exam Neurological: Present alert and oriented X3 Routine Psychiatric Exam Psychiatric: Present normal affect; Absent depressed Results Data Completed and Pending Labs on day of discharge: Labs from last 24 hours 02/09/22 02/09/22 11:50 11:50 Sodium 140 Potassium 3.9 Chloride 97 L Carbon Dioxide 29 Anion Gap 17.9 H BUN 10 Creatinine 0.80 Estimated Creat Clear 145 Estimated GFR 89 Est GFR ( Amer) 108 Glucose 90 Calcium 9.1 Total Bilirubin 0.2 AST 28 ALT 16 Alkaline Phosphatase 107 Total Protein 7.1 Albumin 4.1 Globulin 3.0 Albumin/Globulin Ratio 1.4 Gentamicin Trough < 0.6 DS: Diagnosis Discharge Diagnosis (1) Endometritis following delivery: Status: Acute (2) Anemia during : Status: Acute Meds Home Medications and Allergies Home Medications Medication Instructions Recorded Confirmed Type ferrous sulfate 142 mg (45 mg 142 mg PO DAILY Supplement 01/15/22 02/08/22 History iron) tablet,extended release (Slow Fe) omeprazole magnesium 20 mg 20 mg PO DAILY GERD 01/15/22 02/08/22 History tablet,delayed release
== END 2022-02-10 13:45 | disposition home or self-care (01) ==
LOC: OBOUT 09:12 → OB 14:25
PROVIDERS: Admitting Provider Nurse Practitioner Obstetrics & Gynecology; PCP Family Medicine; Visit Provider Nurse Practitioner Obstetrics & Gynecology
DX: O86.12 Endometritis following delivery (principal); O90.81 Anemia of the puerperium
CPT/HCPCS: 36415; 80053; 80170; 85025; C9803; G0378; U0003; U0005

== ENCOUNTER 2022-04-17 16:04 | Outpatient (CLI) | payer OTHER, SELFPAY ==
[2022-04-17 16:30] VITALS: BP 149/82; PULSE 71; RESP 18; TEMP 36.7; O2SAT 100
== END 2022-04-17 16:32 | disposition home or self-care (01) ==
LOC: INF 16:06
PROVIDERS: PCP Family Medicine; Visit Provider Obstetrics & Gynecology
DX: J01.80 Other acute sinusitis (principal)
CPT/HCPCS: 96372; J0696; J1040

== ENCOUNTER 2022-06-21 15:21 | Emergency (ER) | payer OTHER, SELFPAY ==
[2022-06-21 15:45] VITALS: BP 108/69; PULSE 91; RESP 20; TEMP 36.8; O2SAT 97; BMI 30.9
--- NOTE | 2022-06-21 16:11 | EXP.UTC ---
Discharge Plan Disposition Patient Disposition: Home, Self-Care Condition: Good Referrals Follow up/Referrals: Michael Carr MD [Primary Care Provider] - See instructions Activity Restrictions/Add. Instructions Additional Instructions/Restrictions: Drink plenty of fluids. Take tylenol or ibuprofen for pain or fever. Take the medications as directed. Follow up with your regular doctor. GO TO THE ER FOR ANY WORSENING SYMPTOMS Clinical Impressions Clinical Impression: Upper respiratory infection Instructions Patient Instructions: DI for Viral Upper Respiratory Infection -- Adult Discharge ED Provider: Rylan Phillips [facility] General Stated complaint: head congestion cough Mode of Arrival: Ambulatory Source of Information: Patient Limitations: No Limitations Time Seen by Provider: 06/21/22 16:08 Description of Symptoms (Recalled from Triage Doc. by RN): congestion, cough, runny nose, and ear pain HEENT Symptoms (Recalled from RN notes): Yes Resp Symptoms (Recalled from RN notes): No Skin Symptoms (Recalled from RN notes): No MS Symptoms (Recalled from RN notes): No Functional Status (Recalled from RN notes): n/a History of Present Illness Provider Complaint: She states that for the past 2 days she has had congestion, cough, runny nose, and ear pain. Related Data Allergies Allergy/AdvReac Type Severity Reaction Status Date / Time No Known Allergies Allergy Verified 06/21/22 15:54 Worker's Comp Is this a Worker's Comp case?: No [facility] Disclaimer: The information contained in this section may have been updated after the patient was seen, as this information can be updated by other users. Medical History Encounter for initial prescription of Nexplanon Encounter for visit Group A streptococcal infection Surgical History Status post vaginal delivery Social History Smoking Status: Never smoker alcohol intake: never counseling provided: none substance use type: denies use current occupational status: employed Travel in the last 8 weeks: None household members: family housing: house ROS Obtained: Yes All systems reviewed & no additional complaints except as documented Constitutional Constitutional: Reports poor appetite Eyes Eyes: Reports system reviewed and no additional complaints, except as documented ENT Ears, Nose, Mouth, and Throat: Reports as per HPI Cardiovascular Cardiovascular: Reports system reviewed and no additional complaints, except as documented and Denies chest pain Respiratory Respiratory: Denies shortness of breath, Denies chest congestion, Reports cough, Denies stridor and Denies wheezing Gastrointestinal Gastrointestingal: Reports system reviewed and no additional complaints, except as documented; Denies abdominal pain, diarrhea or vomiting Musculoskeletal Musculoskeletal: Reports system reviewed and no additional complaints, except as documented and Denies arthralgias Integumentary/Breasts Skin/Breast: Reports system reviewed and no additional complaints, except as documented and Denies rash Neurologic Neurologic: Denies paresthesias Allergic/Immunologic Allergic/Immunologic: Denies wheezing Physical Exam General General appearance: alert and in no apparent distress Head Head exam: atraumatic, normocephalic and normal inspection Eye Eye exam: Present normal appearance, PERRL and EOMI ENT ENT exam: Present normal exam, normal oropharynx, mucous membranes moist, TM's normal bilaterally and normal external ear exam Neck Neck exam: Present normal inspection, full ROM and trachea midline; Absent meningismus or lymphadenopathy Chest Chest inspection: Present normal inspection and symmetric chest wall rise; Absent tenderness Respiratory Respiratory exam: Present normal lung sounds bilat
[2022-06-21 17:07] VITALS: BP 108/69; PULSE 91; RESP 20; TEMP 36.8; O2SAT 97
== END 2022-06-21 17:06 | disposition home or self-care (01) ==
PROVIDERS: Emergency Provider Nurse Practitioner Family; PCP Family Medicine
DX: J06.9 Acute upper respiratory infection, unspecified (principal); R05.9 Cough, unspecified
CPT/HCPCS: 96372; 99212; 99214; G0463; J1040

== ENCOUNTER → 2022-10-05 10:39 | Outpatient (CLI) | payer OTHER, SELFPAY | PROVIDERS: PCP Family Medicine; Visit Provider Nurse Practitioner | DX: J06.9 Acute upper respiratory infection, unspecified (principal) | CPT/HCPCS: J0696 ==

== ENCOUNTER 2023-01-23 18:18 | Emergency (ER) | payer OTHER, SELFPAY ==
[2023-01-23] VITALS (9 sets, daily range): BP systolic 109–143; BP diastolic 61–80; PULSE 90–113; RESP 15–21; TEMP 36.5–36.8; O2SAT 96–98
--- NOTE | 2023-01-23 18:27 | PC.NURSE ---
DR DHILLON AT BEDSIDE
--- NOTE | 2023-01-23 18:35 | HMH.EDGENADL ---
Discharge Plan Disposition Patient Disposition: Home, Self-Care Condition: Good Prescriptions Prescriptions: New sulfamethoxazole-trimethoprim [Bactrim DS] 800-160 mg tablet 1 tab PO Q12H 14 Days Qty: 28 0RF ondansetron 4 mg tablet,disintegrating 4 mg PO Q8H PRN (Reason: nausea and vomiting) 4 Days Qty: 12 0RF No Action ondansetron HCl 4 mg tablet 4 mg PO Q6HP Qty: 30 0RF cephalexin 500 mg capsule 500 mg PO QID 7 Days Qty: 28 0RF ibuprofen 800 mg tablet 800 mg PO Q8H PRN (Reason: pain) Qty: 20 0RF Referrals Follow up/Referrals: Michael Carr MD [Primary Care Provider] - See instructions Activity Restrictions/Add. Instructions Additional Instructions/Restrictions: You were evaluated in the emergency department today. Please package pick up your prescription for Bactrim and take the full course as prescribed. I recommend continuing your Keflex as well. Take Tylenol and ibuprofen at home as needed for pain and fevers. Follow-up closely with your primary care provider and [facility]ST. If your symptoms do not improve over the weekend, you may need a formal breast ultrasound. Your blood cultures are pending at this time. We will call you if they come back positive. Return to the emergency department for new or worsening symptoms. Clinical Impressions Clinical Impression: Mastitis, Fever, Hypokalemia, Hypomagnesemia Instructions Patient Instructions: DI for Mastitis, DI for Hypokalemia, DI for Hypomagnesemia Discharge ED Provider: Cristine Reece General Adult HPI General Chief complaint: Skin/Abscess/Foreign Body Stated complaint: MASTITICIS, FEVER Time Seen by Provider: 01/23/23 18:24 History of Present Illness HPI narrative: This patient is a 22-year-old female presenting to the emergency department for evaluation of left breast pain, fever, headache, body aches, and fatigue. She notes that her left breast became painful Thursday and had acutely worsened yesterday, so she was put on Keflex. She started taking this yesterday as well as 800 mg ibuprofen, but she has continued to have fevers today with Tmax 102.5 ?F. She has not felt well. She notes that she has also had mild nasal congestion, but this is not unusual for her. She notes that her left breast is erythematous, tender to palpation, and engorged and she is having a lot of difficulty getting any milk expressed. She has had some greenish discharge from the nipple when pumping. She does note that she also had a stomach bug a few days ago, but she has not had recent nausea, vomiting, or diarrhea. She does still have some abdominal pain with eating. Related Data Previous Rx's Medication Instructions Recorded ondansetron HCl 4 mg tablet 4 mg PO Q6HP nausea and vomiting 01/19/23 #30 tabs cephalexin 500 mg capsule 500 mg PO QID 7 days #28 caps 01/22/23 ibuprofen 800 mg tablet 800 mg PO Q8H PRN pain #20 tabs 01/22/23 ondansetron 4 mg disintegrating 4 mg PO Q8H PRN nausea and 01/23/23 tablet vomiting 4 days #12 tabs sulfamethoxazole 800 1 tab PO Q12H 14 days #28 tabs 01/23/23 mg-trimethoprim 160 mg tablet (Bactrim DS) Allergies Allergy/AdvReac Type Severity Reaction Status Date / Time No Known Allergies Allergy Verified 06/21/22 15:54 [facility] Disclaimer: The information contained in this section may have been updated after the patient was seen, as this information can be updated by other users. Medical History Encounter for initial prescription of Nexplanon Encounter for visit Group A streptococcal infection Surgical History Status post vaginal delivery Social History Smoking Status: Never smoker alcohol intake: never counseling provided: none substance use type: denies use current occupational status: employed Travel in the last 8 we
[2023-01-23 18:45] LABS: Coronavirus 19, PCR Not Detected (NotDetected); Influenza A, PCR Not Detected (NotDetected); Influenza B, PCR Not Detected (NotDetected)
[2023-01-23 18:47] LABS: Basophils % 0.2 % (0.1-2.0); Eosinophils # 0.3 K/mm3 (0.0-0.4); Eosinophils % 1.6 % (0.1-12.0); Hematocrit 40.9 % (37.0-47.0); Hemoglobin 13.7 g/dL (12.2-16.2); Lymphocytes # 0.8 K/mm3 (0.7-4.5); Lymphocytes % 4.5 % (10-50); Mean Corpuscular HGB Conc 33.6 g/dL (31.8-35.4); Mean Corpuscular Hemoglobin 28.1 pg (27.0-31.2); Mean Corpuscular Volume 83.5 fl (81-99); Mean Platelet Volume 7.8 fl (7.4-10.4); Monocytes # 0.6 K/mm3 (0.1-1.0); Monocytes % 3.3 % (1.7-9.3); Neutrophils # 15.3 K/mm3 (1.8-7.8); Neutrophils % 90.4 % (37.0-80.0); Platelet Count 233 K/mm3 (142-424); Red Blood Count 4.89 M/mm3 (4.20-5.40); Red Cell Distribution Width 13.2 % (11.5-17.5); White Blood Count 16.9 K/mm3 (4.8-10.8)
[2023-01-23 18:49] LABS: MANUAL DIFFERENTIAL MANUAL DIFFERENTIAL (MANUAL DIFF)
[2023-01-23 18:54] LABS: Chloride 103 mmol/L (98-107); Sodium 138 mmol/L (136-145)
[2023-01-23 18:56] LABS: Alanine Aminotransferase 26 U/L (12-78); Aspartate Amino Transferase 33 U/L (14-36); Blood Urea Nitrogen 10 mg/dl (7-17); Creatinine Clearance Estimated 155 mL/min (50-200); Estimated Glomerular Filt Rate 103 ml/min (>60); GFR (African American) 124 ML/MIN (>60)
[2023-01-23 18:57] LABS: Albumin Level 4.4 g/dl (3.5-5.0); Albumin/Globulin Ratio 1.3 (1.1-1.8); Alkaline Phosphatase 85 U/L (38-126); Bilirubin,Total 0.7 mg/dl (0.2-1.3); Calcium 8.3 mg/dl (8.4-10.2); Carbon Dioxide 25 mmol/L (22.0-30.0); Globulin 3.3 g/dL (1.3-3.2); Glucose 141 mg/dl (74-100); Total Protein,Serum 7.7 g/dl (6.3-8.2)
[2023-01-23 18:58] LABS: Lactic Acid 0.9 mmol/L (0.7-2.1)
[2023-01-23 19:14] LABS: Procalcitonin 0.078 ng/mL (0.0-2.0)
[2023-01-23 19:15] LABS: Adenovirus,PCR Not Detected (NotDetected); Coronavirus 19, PCR Not Detected (NotDetected); Coronavirus 229E Not Detected (NotDetected); Coronavirus NL63 Not Detected (NotDetected); Coronavirus OC43 Not Detected (NotDetected); Coronovirus HKU1,PCR Not Detected (NotDetected); Human Metapneumovirus Not Detected (NotDetected); Influenza A, PCR Not Detected (NotDetected); Influenza AH1, 2009 Not Detected (NotDetected); Influenza AH1, PCR Not Detected (NotDetected); Influenza AH3,PCR Not Detected (NotDetected); Influenza B, PCR Not Detected (NotDetected); Parainfluenza 1, PCR Not Detected (NotDetected); Parainfluenza 2, PCR Not Detected (NotDetected); Parainfluenza 3, PCR Not Detected (NotDetected); Parainfluenza 4, PCR Not Detected (NotDetected); Respiratory Syncytial Virus Not Detected (NotDetected); Rhinovirus/Enterovirus Not Detected (NotDetected)
[2023-01-23 19:17] LABS: HCG Qualitative, Serum Negative (Negative)
[2023-01-23 19:24] LABS: Magnesium 1.5 mg/dl (1.6-2.3)
[2023-01-23 19:26] LABS: Lymphocytes % 6 % (10-50); Monocytes % 1 % (2-9); Neutrophils % 93 % (42-76); Platelet Estimate Normal; RBC Morphology Normal; Total Cells Counted 100
[2023-01-23 21:11] LABS: Microscopic, Urine URINE MICROSCOPIC (MICROSCOPIC)
[2023-01-23 21:13] LABS: Appearance,Urine CLEAR (Clear); Blood, Urine TRACE-I (Negative); Color,Urine YELLOW (Yellow); Glucose,Urine (UA) Negative (Negative); Ketones,Urine 2+ (Negative); Leukocyte Esterase,Urine Negative (Negative); Nitrate,Urine Negative (Negative); Protein,Urine TRACE (Negative); Specific Gravity, Urine 1.015 (1.005-1.030); Urobilinogen,Urine 0.2 EU/dl (0.2)
[2023-01-23 21:28] LABS: Bilirubin,Urine 1+ (Negative)
[2023-01-23 22:06] LABS: Amorphous Sediment,Urine Trace /lpf; RBC,Urine Occasional #/hpf (0-3)
== END 2023-01-23 22:17 | disposition home or self-care (01) ==
PROVIDERS: Emergency Provider Emergency Medicine; PCP Family Medicine
DX: N61.0 Mastitis without abscess (principal); E87.6 Hypokalemia; R50.9 Fever, unspecified; E83.42 Hypomagnesemia; R00.0 Tachycardia, unspecified
CPT/HCPCS: 80053; 81001; 83605; 83735; 84145; 84703; 85007; 85025; 87040; 87632; 87635; 87636; 96365; 96366; 96367; 96375; 96376; 99285; J0696; J2405; J3475

== ENCOUNTER 2023-07-02 13:44 | Outpatient (CLI) | payer OTHER, SELFPAY ==
[2023-07-02 15:18] LABS: Thyroid Stimulating Hormone 0.73 uIU/mL (0.465-4.68)
== END 2023-07-02 23:59 ==
LOC: LAB 13:45
PROVIDERS: Visit Provider Obstetrics & Gynecology
DX: N93.9 Abnormal uterine and vaginal bleeding, unspecified (principal); L65.9 Nonscarring hair loss, unspecified
CPT/HCPCS: 84443

== ENCOUNTER 2023-08-05 07:26 | Outpatient (CLI) | payer OTHER, SELFPAY ==
[2023-08-05 07:29] LABS: Microscopic, Urine URINE MICROSCOPIC (MICROSCOPIC)
[2023-08-05 07:42] LABS: Basophils % 0.5 % (0.1-2.0); Eosinophils # 0.1 K/mm3 (0.0-0.4); Eosinophils % 1.4 % (0.1-12.0); Hematocrit 42.3 % (37.0-47.0); Hemoglobin 13.5 g/dL (12.2-16.2); Lymphocytes # 1.4 K/mm3 (0.7-4.5); Lymphocytes % 23.1 % (10-50); Mean Corpuscular Hemoglobin 27.3 pg (27.0-31.2); Mean Corpuscular Volume 85.5 fl (81-99); Mean Platelet Volume 8.1 fl (7.4-10.4); Monocytes # 0.3 K/mm3 (0.1-1.0); Monocytes % 4.8 % (1.7-9.3); Neutrophils # 4.2 K/mm3 (1.8-7.8); Neutrophils % 70.2 % (37.0-80.0); Platelet Count 252 K/mm3 (142-424); Red Blood Count 4.95 M/mm3 (4.20-5.40)
[2023-08-05 09:54] LABS: Alanine Aminotransferase 18 U/L (12-78); Albumin Level 4.5 g/dl (3.5-5.0); Albumin/Globulin Ratio 1.6 (1.1-1.8); Alkaline Phosphatase 53 U/L (38-126); Anion Gap 14.1 mEq/L (5-15); Aspartate Amino Transferase 27 U/L (14-36); Bilirubin,Total 0.5 mg/dl (0.2-1.3); Blood Urea Nitrogen 11 mg/dl (7-17); Calcium 9.2 mg/dl (8.4-10.2); Carbon Dioxide 29 mmol/L (22.0-30.0); Chloride 101 mmol/L (98-107); Chol/HDL Ratio 2.3 (1-3.5); Cholesterol 142 mg/dl (140-200); Estimated Glomerular Filt Rate 123 ml/min (>60); GFR (African American) 149 ML/MIN (>60); Globulin 2.8 g/dL (1.3-3.2); Glucose 88 mg/dl (74-100); HDL Cholesterol 61 mg/dl (40-60); Potassium 4.1 mmoL/L (3.5-5.1); Sodium 140 mmol/L (136-145); Total Protein,Serum 7.3 g/dl (6.3-8.2); Triglycerides 46 mg/dl (30-150); VLDL Cholesterol 9 mg/dL (0-40)
[2023-08-05 10:10] LABS: Free T4 (Free Thyroxine) 1.16 ng/dl (0.78-2.19)
[2023-08-05 10:11] LABS: 25-OH Vitamin D, Total 46.3 ng/mL (30-100)
[2023-08-05 10:30] LABS: Thyroid Stimulating Hormone 1.01 uIU/mL (0.465-4.68)
[2023-08-05 10:49] LABS: Vitamin B12 342 pg/mL (239-931)
[2023-08-05 11:18] LABS: Hemoglobin A1C 5.2 % (4.0-6.0)
[2023-08-05 11:23] LABS: Iron 77 ug/dL (37-170)
[2023-08-05 11:33] LABS: Total Iron Binding Capacity 316 ug/dL (265-497)
[2023-08-05 11:59] LABS: Ferritin 14.7 ng/ml (6.24-137)
[2023-08-05 13:19] LABS: Appearance,Urine CLEAR (Clear); Bilirubin,Urine Negative (Negative); Blood, Urine Negative (Negative); Color,Urine YELLOW (Yellow); Glucose,Urine (UA) Negative (Negative); Ketones,Urine Negative (Negative); Leukocyte Esterase,Urine Negative (Negative); Nitrate,Urine Negative (Negative); PH,Urine 6.5 (5.0-8.5); Protein,Urine Negative (Negative); Specific Gravity, Urine 1.025 (1.005-1.030); Urobilinogen,Urine 0.2 EU/dl (0.2)
[2023-08-05 14:50] LABS: WBC,Urine Occasional #/hpf (0-3)
[2023-08-05 14:51] LABS: Bacteria,Urine Trace /lpf
[2023-08-05 14:52] LABS: Mucus,Urine Trace /lpf
== END 2023-08-05 23:59 | disposition home or self-care (01) ==
LOC: LAB 07:26
PROVIDERS: PCP Nurse Practitioner Family; Visit Provider Nurse Practitioner Family
DX: G43.909 Migraine, unspecified, not intractable, without status migrainosus (principal); R53.83 Other fatigue; Z13.1 Encounter for screening for diabetes mellitus; Z13.220 Encounter for screening for lipoid disorders; E66.9 Obesity, unspecified; Z68.32 Body mass index [BMI] 32.0-32.9, adult; Z79.899 Other long term (current) drug therapy
CPT/HCPCS: 36415; 80053; 80061; 81001; 82306; 82607; 82728; 83036; 83540; 83550; 84439; 84443; 85025; 87086

== ENCOUNTER 2023-11-30 11:11 | Emergency (ER) | payer OTHER, SELFPAY ==
[2023-11-30 11:23] VITALS: BP 122/72; PULSE 79; RESP 20; TEMP 37.1; O2SAT 99; BMI 31.7
--- NOTE | 2023-11-30 11:44 | EXP.UTC ---
Discharge Plan Disposition Patient Disposition: Home, Self-Care Condition: Good Prescriptions Prescriptions: New azithromycin [Zithromax] 250 mg tablet 250 mg PO UD DOSE PK Qty: 6 0RF Rx Instructions: Take two (2) tablets today, then one (1) tablet days #2 thru #5 albuterol sulfate [Ventolin HFA] 90 mcg/actuation HFA aerosol inhaler 2 puff inhalation Q6H PRN (Reason: shortness of breath or wheezing) Qty: 6.7 0RF guaifenesin [Mucinex] 600 mg tablet extended release 12hr 600 - 1,200 mg PO BIDP PRN (Reason: Congestion) Qty: 30 0RF No Action Qulipta 60 mg tablet 60 mg PO DAILY Qty: 90 3RF Nurtec ODT 75 mg tablet,disintegrating 75 mg PO Q OTHER DAY PRN (Reason: migraine headache) Qty: 10 5RF Nexplanon 68 mg implant 1 implant subdermal ONCE Patient Comments: inserted 02-27-2022 Referrals Follow up/Referrals: Jelena Griffin APRN [Primary Care Provider] - See instructions Activity Restrictions/Add. Instructions Additional Instructions/Restrictions: Drink plenty of fluids. Take tylenol or ibuprofen for pain or fever. Take the medications as directed. Follow up with your regular doctor. GO TO THE ER FOR ANY WORSENING SYMPTOMS Clinical Impressions Clinical Impression: Acute bronchitis Instructions Patient Instructions: DI for Acute Bronchitis, Dexamethasone Injection Print Language Print Language: Latvian Discharge ED Provider: Rylan Phillips [facility] General Stated complaint: COUGH AND CONGESTION Mode of Arrival: Ambulatory Source of Information: Patient Limitations: No Limitations Time Seen by Provider: 11/30/23 11:44 Description of Symptoms (Recalled from Triage Doc. by RN): PATIENT C/O COUGH AND CHEST CONGESTION SINCE THURSDAY HEENT Symptoms (Recalled from RN notes): Yes Resp Symptoms (Recalled from RN notes): Yes Skin Symptoms (Recalled from RN notes): No MS Symptoms (Recalled from RN notes): No Functional Status (Recalled from RN notes): WNL Related Data Home Medications ?Medication ?Instructions ?Recorded ?Confirmed etonogestrel 68 mg subdermal 1 implant subdermal ONCE 06/30/23 11/30/23 implant (Nexplanon) Previous Rx's ?Medication ?Instructions ?Recorded atogepant 60 mg tablet (Qulipta) 60 mg PO DAILY #90 tabs 07/30/23 rimegepant 75 mg disintegrating 75 mg PO Q OTHER DAY PRN migraine 11/04/23 tablet (Nurtec ODT) headache #10 tabs albuterol sulfate 90 mcg/actuation 2 puff inhalation Q6H PRN 11/30/23 aerosol inhaler (Ventolin HFA) shortness of breath or wheezing #6.7 grams azithromycin 250 mg tablet 250 mg PO UD DOSE PK #6 tabs 11/30/23 (Zithromax) guaifenesin 600 mg tablet, 600 - 1,200 mg (1 - 2 x 600 mg) PO 11/30/23 extended release 12 hr (Mucinex) BIDP PRN Congestion #30 tabs Allergies Allergy/AdvReac Type Severity Reaction Status Date / Time No Known Allergies Allergy Verified 11/04/23 08:07 Worker's Comp Is this a Worker's Comp case?: [facility]: The information contained in this section may have been updated after the patient was seen, as this information can be updated by other users. Medical History (Updated 11/30/23 @ 12:17 by Rylan Phillips APRN) Anxiety Migraine Hx of cataract Anemia during Endometritis following delivery Upper respiratory infection Hypomagnesemia Hypokalemia Fever Mastitis History of migraine with aura Abnormal uterine bleeding Alopecia Encounter for initial prescription of Nexplanon Group A streptococcal infection Encounter for visit Surgical History History of phacoemulsification of cataract of left eye with intraocular lens implantation History of tonsillectomy and adenoidectomy Status post vaginal delivery Family History Other Anemia Cancer Coronary artery disease Hypertension Social History (Updated 11/04/23 @ 08:22 by VINICIO Sethi) Smoking Status: Never smoker alcohol intake: never counseling provided: none substance use type: denies use current occupational status: employed Travel in the last 8 weeks: None household members: family housing: house marital status: life partner ROS Obtained: Yes All systems reviewed & no additional complaints except as documented Constitutional Constitutional: Reports poor appetite Eyes Eyes: Reports system reviewed and no additional complaints, except as documented ENT Ears, Nose, Mouth, and Throat: Reports as per HPI Cardiovascular Cardiovascular: Reports system reviewed and no additional complaints, except as documented and Denies chest pain Respiratory Respiratory: Denies shortness of breath, Reports chest congestion, Reports cough, Denies stridor and Denies wheezing Gastrointestinal Gastrointestingal: Reports system reviewed and no additional complaints, except as documented; Denies abdominal pain, diarrhea or vomiting Musculoskeletal Musculoskeletal: Reports system reviewed and no additional complaints, except as documented and Denies arthralgias Integumentary/Breasts Skin/Breast: Reports system reviewed and no additional complaints, except as documented and Denies rash Neurologic Neurologic: Denies paresthesias Allergic/Immunologic Allergic/Immunologic: Denies wheezing Physical Exam General General appearance: alert and in no apparent distress Eye Eye exam: Present normal appearance, PERRL and EOMI ENT ENT exam: Present mucous membranes moist and normal external ear exam Expanded ENT Exam External ear exam: Present normal external inspection TM/Canal exam: Bilateral TM: erythema and bulging Nose exam: Absent sinus tenderness Nasal speculum exam: Bilateral: normal Mouth exam: Present normal external inspection; Absent drooling Teeth exam: Present normal inspection Throat exam: Present tonsillar erythema and tonsillomegaly Neck Neck exam: Present normal inspection, full ROM and trachea midline; Absent tenderness, lymphadenopathy or thyromegaly Chest Chest inspection: Present normal inspection and symmetric chest wall rise; Absent tenderness or rash Respiratory Respiratory exam: Present normal lung sounds bilaterally; Absent respiratory distress, wheezes, stridor or accessory muscle use Cardiovascular Cardiovascular exam: Present regular rate, normal rhythm and normal heart sounds Abdominal Exam Abdominal exam: Present soft; Absent distention, tenderness, guarding, rebound or rigidity Extremities Exam Extremities exam: Present normal inspection, full ROM and normal capillary refill; Absent tenderness or calf tenderness Back Exam Back exam: Present normal inspection and full ROM; Absent tenderness Neurological Exam Neurological exam: Present alert and oriented X3 Psychiatric Psychiatric exam: Present normal affect and normal mood Skin Skin exam: Present warm, dry, intact and normal color Lymphatic Lymphatic Findings: no adenopathy Medical Decision Making Medical Records Medical records reviewed: No I reviewed the patient's medical records. Simone Inquiry Pt receiving controlled substance: No Vital Signs: 11/30/23 11:23 Temperature 98.7 F Temperature Source Oral Pulse Rate [Left Brachial] 79 Respiratory Rate 20 Blood Pressure [Left Arm] 122/72 Blood Pressure Mean [Left Arm] 88 Blood Pressure Source [Left Arm] Automatic Cuff Blood Pressure Position [Left Arm] Sitting 02 Sat by Pulse Oximetry 99 Oxygen Delivery Method Room Air Lab Data Lab results reviewed: Yes I reviewed the patient's lab results.
[2023-11-30] MEDS: DEXAMETHASONE 4MG/ML 1ML VIAL 8 MG IM (11:57)
[2023-11-30 12:17] VITALS: BP 122/72; PULSE 79; RESP 20; TEMP 37.1; O2SAT 99
== END 2023-11-30 12:20 | disposition home or self-care (01) ==
PROVIDERS: Emergency Provider Nurse Practitioner Family; PCP Nurse Practitioner Family
DX: J20.9 Acute bronchitis, unspecified (principal); R09.89 Other specified symptoms and signs involving the circulatory and respiratory systems
CPT/HCPCS: 96372; 99212; 99214; G0463; J1100

== ENCOUNTER 2024-04-17 21:03 | Observation (INO) | payer OTHER, SELFPAY ==
[2024-04-17 21:19] VITALS: BP 145/100; PULSE 73; RESP 16; TEMP 36.8; O2SAT 98; BMI 32.4
--- NOTE | 2024-04-17 21:27 | CT_ITS ---
PROCEDURE INFORMATION: Exam: CTA Chest With Contrast Exam date and time: 04/17/2024 10:24 PM Age: 23 years old Clinical indication: Pain; Radiating; Additional info: Cp radiating to back TECHNIQUE: Imaging protocol: Computed tomographic angiography of the chest with contrast. Exam focused on the arteries. 3D rendering (Not supervised by radiologist): MIP and/or 3D reconstructed images were created by the technologist. Radiation optimization: All CT scans at this facility use at least one of these dose optimization techniques: automated exposure control; mA and/or kV adjustment per patient size (includes targeted exams where dose is matched to clinical indication); or iterative reconstruction. Contrast material: ISOVUE; Contrast volume: 80 ml; Contrast route: INTRAVENOUS (IV); COMPARISON: CT ABDOMEN PELVIS W CON 04/17/2024 10:24 PM FINDINGS: Pulmonary arteries: Normal. No pulmonary emboli. Aorta: Unremarkable. No aortic aneurysm. No aortic dissection. Lungs: Few calcified granulomas. No consolidation. No masses. Pleural spaces: Unremarkable. No pneumothorax. No pleural effusion. Heart: Unremarkable. No cardiomegaly. No pericardial effusion. Lymph nodes: Calcified mediastinal and hilar lymph nodes. Bones/joints: No acute findings. Soft tissues: Unremarkable. IMPRESSION: No acute findings. No pulmonary artery embolism.
--- NOTE | 2024-04-17 21:27 | CT_ITS ---
PROCEDURE INFORMATION: Exam: CT Abdomen And Pelvis With Contrast Exam date and time: 04/17/2024 10:24 PM Age: 23 years old Clinical indication: Abdominal pain; Localized; Right upper quadrant (ruq); Additional info: Ruq ttp focally TECHNIQUE: Imaging protocol: Computed tomography of the abdomen and pelvis with contrast. 3D rendering (Not supervised by radiologist): MIP and/or 3D reconstructed images were created by the technologist. Radiation optimization: All CT scans at this facility use at least one of these dose optimization techniques: automated exposure control; mA and/or kV adjustment per patient size (includes targeted exams where dose is matched to clinical indication); or iterative reconstruction. Contrast material: ISOVUE; Contrast volume: 80 ml; Contrast route: IV; COMPARISON: CT ANGIO CHEST PE PROTOCOL 04/17/2024 10:24 PM FINDINGS: Liver: Normal. No mass. Gallbladder and biliary ducts: Mildly distended. Layering gallstones. Mild wall thickening versus pericholecystic fluid at the gallbladder fundus. No biliary ductal dilatation Pancreas: Normal. No ductal dilation. Spleen: Normal. No splenomegaly. Adrenal glands: Normal. No mass. Kidneys and ureters: Normal. No hydronephrosis. Stomach and bowel: Unremarkable. No obstruction. No mucosal thickening. Appendix: No evidence of appendicitis. Intraperitoneal space: Unremarkable. No free air. No significant fluid collection. Vasculature: Unremarkable. No abdominal aortic aneurysm. Lymph nodes: Unremarkable. No enlarged lymph nodes. Urinary bladder: Unremarkable as visualized. Reproductive: Unremarkable as visualized. Bones/joints: No acute fracture. Soft tissues: Unremarkable. IMPRESSION: Cholelithiasis. Mild gallbladder distension, and mild wall thickening versus pericholecystic fluid at the gallbladder fundus raises suspicion for acute cholecystitis.
[2024-04-17 21:35] LABS: Appearance,Urine CLEAR (Clear); Bilirubin,Urine Negative (Negative); Blood, Urine Negative (Negative); Color,Urine YELLOW (Yellow); Glucose,Urine (UA) Negative (Negative); Ketones,Urine Negative (Negative); Leukocyte Esterase,Urine Negative (Negative); Microscopic, Urine URINE MICROSCOPIC (MICROSCOPIC); Nitrate,Urine Negative (Negative); Protein,Urine Negative (Negative); Specific Gravity, Urine 1.025 (1.005-1.030); Urobilinogen,Urine 0.2 EU/dl (0.2)
[2024-04-17] MEDS: ONDANSETRON 4MG/2ML VIAL 4 MG IV ×2 (21:44→22:50)
[2024-04-17 21:45] LABS: Basophils % 0.4 % (0.1-2.0); Eosinophils # 0.1 K/mm3 (0.0-0.4); Eosinophils % 0.8 % (0.1-12.0); Hematocrit 38.9 % (37.0-47.0); Hemoglobin 12.8 g/dL (12.2-16.2); Lymphocytes # 2.5 K/mm3 (0.7-4.5); Lymphocytes % 25.1 % (10-50); Mean Corpuscular HGB Conc 32.9 g/dL (31.8-35.4); Mean Corpuscular Hemoglobin 27.4 pg (27.0-31.2); Mean Corpuscular Volume 83.3 fl (81-99); Mean Platelet Volume 9.6 fl (7.4-10.4); Monocytes # 0.5 K/mm3 (0.1-1.0); Monocytes % 5.1 % (1.7-9.3); Neutrophils # 6.8 K/mm3 (1.8-7.8); Neutrophils % 68.4 % (37.0-80.0); Platelet Count 328 K/mm3 (142-424); Red Blood Count 4.67 M/mm3 (4.20-5.40); Red Cell Distribution Width 12.9 % (11.5-17.5); White Blood Count 9.9 K/mm3 (4.8-10.8)
[2024-04-17] MEDS: MORPHINE 4MG/ML SYRINGE 4 MG IV (21:45)
[2024-04-17 21:51] LABS: Bacteria,Urine Trace /lpf; WBC,Urine Occasional #/hpf (0-3)
[2024-04-17 21:52] LABS: Alanine Aminotransferase 23 U/L (12-78); Albumin Level 5.2 g/dl (3.5-5.0); Alkaline Phosphatase 44 U/L (38-126); Anion Gap 13.8 mEq/L (5-15); Aspartate Amino Transferase 34 U/L (14-36); Blood Urea Nitrogen 13 mg/dl (7-17); Calcium 9.6 mg/dl (8.4-10.2); Carbon Dioxide 28 mmol/L (22.0-30.0); Chloride 102 mmol/L (98-107); Creatinine Clearance Estimated 145 mL/min (50-200); Estimated Glomerular Filt Rate 87 ml/min (>60); GFR (African American) 106 ML/MIN (>60); Globulin 2.6 g/dL (1.3-3.2); Glucose 93 mg/dl (74-100); Lipase 123 U/L (23-300); Magnesium 1.6 mg/dl (1.6-2.3); Potassium 3.8 mmoL/L (3.5-5.1); Sodium 140 mmol/L (136-145); Total Protein,Serum 7.8 g/dl (6.3-8.2)
[2024-04-17 21:55] LABS: HCG Qualitative, Serum Negative (Negative)
[2024-04-17 21:56] LABS: Bilirubin,Total < 0.1 mg/dl (0.2-1.3)
[2024-04-17] MEDS: KETOROLAC 30MG/ML VIAL 15 MG IV (22:02)
[2024-04-17 22:06] LABS: Troponin I < 0.01 ng/ml (0.00-0.034)
--- NOTE | 2024-04-17 22:08 | PC.NURSE ---
General surgery paged.
[2024-04-17] MEDS: HYDROMORPHONE 2MG/ML SYRINGE 0.5 MG IV (22:14)
--- NOTE | 2024-04-17 22:31 | ED_ITS ---
Discharge Plan Disposition Patient Disposition: Admitted Chief Complaint: PAIN Prescriptions Prescriptions: No Action Qulipta 60 mg tablet 60 mg PO DAILY Qty: 90 3RF Nurtec ODT 75 mg tablet,disintegrating 75 mg PO Q OTHER DAY PRN (Reason: migraine headache) Qty: 10 5RF Nexplanon 68 mg implant 1 implant subdermal ONCE Patient Comments: inserted 02-27-2022 metronidazole 500 mg tablet 500 mg PO BID 7 Days Qty: 14 0RF fluconazole 150 mg tablet 150 mg PO Q72H Qty: 2 0RF albuterol sulfate [Ventolin HFA] 90 mcg/actuation HFA aerosol inhaler 2 puff inhalation Q6H PRN (Reason: shortness of breath or wheezing) Qty: 6.7 0RF guaifenesin [Mucinex] 600 mg tablet extended release 12hr 600 - 1,200 mg PO BIDP PRN (Reason: Congestion) Qty: 30 0RF Referrals Follow up/Referrals: Jelena Griffin APRN [Primary Care Provider] - See instructions Clinical Impressions Clinical Impression: Acute cholecystitis Print Language Print Language: Slovak Discharge ED Provider: Sunil Linder General Adult HPI <Brian Lombardo MD - Last Filed: 04/17/24 23:13> General Chief complaint: PAIN Stated complaint: Pain in right side,no N/V Time Seen by Provider: 04/17/24 21:15 Mode of Arrival: Ambulatory Source of Information: Patient Limitations: No Limitations Description of Symptoms (Recalled from ER Triage Doc. by RN): patient complaints of pain to flank that radiates to right upper quad, area that started after supper. History of Present Illness HPI narrative: Patient is a 23-year-old female with no significant past medical history who presents today due to right sided back pain and chest pain as well as right upper quadrant abdominal pain. She reports it has started about 3 hours ago and has been worsening. It is a sharp and stabbing sensation radiating up into her chest, tearing sensation. She denies any fevers, vomiting, diarrhea. She had a bowel movement this morning which was normal nonbloody. She denies any recent postprandial pain or recurrence of the symptoms previously. She has never had any abdominal surgeries. Denies any dysuria hematuria. No history of kidney stones. Related Data Home Medications ?Medication ?Instructions ?Recorded ?Confirmed etonogestrel 68 mg subdermal 1 implant subdermal ONCE 06/30/23 03/24/24 implant (Nexplanon) Previous Rx's ?Medication ?Instructions ?Recorded atogepant 60 mg tablet (Qulipta) 60 mg PO DAILY #90 tabs 07/30/23 rimegepant 75 mg disintegrating 75 mg PO Q OTHER DAY PRN migraine 11/04/23 tablet (Nurtec ODT) headache #10 tabs albuterol sulfate 90 mcg/actuation 2 puff inhalation Q6H PRN 11/30/23 aerosol inhaler (Ventolin HFA) shortness of breath or wheezing #6.7 grams guaifenesin 600 mg tablet, 600 - 1,200 mg (1 - 2 x 600 mg) PO 11/30/23 extended release 12 hr (Mucinex) BIDP PRN Congestion #30 tabs fluconazole 150 mg tablet 150 mg PO Q72H 2 doses #2 tabs 03/31/24 metronidazole 500 mg tablet 500 mg PO BID 7 days #14 tabs 03/31/24 Allergies Allergy/AdvReac Type Severity Reaction Status Date / Time No Known Allergies Allergy Verified 03/24/24 14:30 [facility] <Brian Lombardo MD - Last Filed: 04/17/24 23:13> [facility] Disclaimer: The information contained in this section may have been updated after the patient was seen, as this information can be updated by other users. Medical History (Updated 04/18/24 @ 00:25 by Sunil Linder MD) Decreased libido without sexual dysfunction Dyspareunia Chronic pelvic pain in female Vaginal discharge Anxiety Migraine Hx of cataract Anemia during Endometritis following delivery Upper respiratory infection Hypomagnesemia Hypokalemia Fever Mastitis History of migraine with aura Abnormal uterine bleeding Alopecia Encounter for initial prescription of Nexplanon Group A streptococcal infection Encounter for visit Surgical History History of phacoemulsification of cataract of left eye with intraocular lens implantation History of tonsillectomy and adenoidectomy Status post vaginal delivery Family History Other Anemia Cancer Coronary artery disease Hypertension Social History Smoking Status: Never smoker alcohol intake: never counseling provided: none substance use type: denies use current occupational status: employed Travel in the last 8 weeks: None household members: family housing: house marital status: life partner Have you lived/traveled outside [place] in past 30 days?: No Contact w/someone who lives/traveled outside US past 30 days?: No Exposure to someone with infectious disease in past 14 days?: No Do you have a fever (greater than 100.4 F or 38 C)?: No Have you tested positive for COVID-19: No Exposed to someone with COVID-19 in past 14 days?: No Do you have a sore throat?: No Do you have a cough?: No Do you have any weakness?: No Do you have any diarrhea?: No Are you experiencing any unusual bleeding?: No Do you have any muscle aches/pain?: No Do you have any abdominal pain?: Yes Are you experiencing loss of taste or smell?: No Other Medical History Have you received the Flu Vaccine for this season: No Have you received the Pneumonia Vaccine: No <Brian Lombardo MD - Last Filed: 04/17/24 23:13> ROS Obtained: Yes All systems reviewed & no additional complaints except as documented Physical Exam <Brian Lombardo MD - Last Filed: 04/17/24 23:13> General General appearance: alert and in no apparent distress Head Head exam: atraumatic and normocephalic Eye Eye exam: Present PERRL and EOMI ENT ENT exam: Present normal oropharynx Neck Neck exam: Present full ROM and trachea midline Chest Chest inspection: Present symmetric chest wall rise Respiratory Respiratory exam: Present normal lung sounds bilaterally; Absent stridor Cardiovascular Cardiovascular exam: Present regular rate and normal rhythm Abdominal Exam Abdominal exam: Present soft and tenderness (ruq and epigastric positive murphys); Absent distention Extremities Exam Extremities exam: Present full ROM Neurological Exam Neurological exam: Present alert and oriented X3 Psychiatric Psychiatric exam: Present normal mood Skin Skin exam: Present warm and dry Medical Decision Making <Brian Lombardo MD - Last Filed: 04/17/24 23:13> Medical Records Screening: Per USPSTF and CDC recommendations, given the prevalence of disease in our region, it is our hospital?s policy to screen for HIV and viral Hepatitis for all patients aged 18 and over and those with ongoing risk factors. Simone Inquiry Pt receiving controlled substance: No Vital Signs: 04/17/24 21:19 Temperature 98.2 F Temperature Source Oral Pulse Rate [Right Brachial] 73 Respiratory Rate 16 Blood Pressure [Right Arm] 145/100 H Blood Pressure Mean [Right Arm] 115 Blood Pressure Source [Right Arm] Automatic Cuff 02 Sat by Pulse Oximetry 98 Oxygen Delivery Method Room Air Lab Data Lab Results 04/17/24 21:17: Urine Color Yellow, Urine Appearance Clear, Urine pH 7.0, Ur Specific [place] 1.025, Urine Protein Negative, Urine Glucose (UA) Negative, Urine Ketones Negative, Urine Blood Negative, Urine Nitrate Negative, Urine Bilirubin Negative, Urine Urobilinogen 0.2, Ur Leukocyte Esterase Negative, Urine RBC None, Urine WBC Occasional, Ur Squamous Epith Cells 5-10, Urine Bacteria Trace 04/17/24 21:35: WBC 9.9, RBC 4.67, Hgb 12.8, Hct 38.9, MCV 83.3, MCH 27.4, MCHC 32.9, RDW 12.9, Plt Count 328, MPV 9.6, Neut % (Auto) 68.4, Lymph % (Auto) 25.1, [place] % (Auto) 5.1, Eos % (Auto) 0.8, Baso % (Auto) 0.4, Neut # (Auto) 6.8, Lymph # (Auto) 2.5, [place] # (Auto) 0.5, Eos # (Auto) 0.1, Baso # (Auto) 0.0, Sodium 140, Potassium 3.8, Chloride 102, Carbon Dioxide 28, Anion Gap 13.8, BUN 13, Creatinine 0.80, Estimated Creat Clear 145, Estimated GFR 87, Est GFR ( Amer) 106, Glucose 93, Calcium 9.6, Magnesium 1.6, Total Bilirubin < 0.1 L, AST 34, ALT 23, Alkaline Phosphatase 44, Troponin I < 0.01, Total Protein 7.8, A lbumin 5.2 H, Globulin 2.6, Albumin/Globulin Ratio 2.0 H, Lipase 123, Serum HCG, Qual Negative 04/17/24 21:35 04/17/24 21:35 Orders (Tests/Meds): ED MEDICATIONS Generic Name Dose Route Start Last Admin Trade Name Freq PRN Reason Stop Dose Admin Sodium Chloride 1,000 mls @ 100 mls/hr 04/18/24 00:30 Sod Chlor 0.9% 1000ml Bag IV 05/18/24 00:29 .Q10H JUVENAL Morphine Sulfate 2 mg 04/18/24 00:16 Morphine 2mg/Ml Syringe IV 05/18/24 00:15 Q4HP PRN Moderate to Severe Pain (4-10) Morphine Sulfate 4 mg 04/18/24 00:16 Morphine 4mg/Ml Syringe IV 05/18/24 00:15 Q4HP PRN Severe Pain (7-10) Ondansetron HCl 4 mg 04/18/24 00:16 Ondansetron 4mg/2ml Vial IV 05/18/24 00:15 Q4HP PRN Nausea Promethazine HCl 25 mg 04/18/24 00:22 Promethazine Hcl 25mg/Ml 1ml Vial IV 04/18/24 00:23 ONCE ONE Sodium Chloride 25 ml 04/18/24 00:22 Sodium Chloride 0.9% 25ml Bag IV 04/18/24 00:23 ONCE ONE Discontinued Medications Generic Name Dose Route Start Last Admin Trade Name Stalinq PRN Reason Stop Dose Admin Hydromorphone HCl 0.5 mg 04/17/24 22:12 04/17/24 22:14 Hydromorphone 2mg/Ml Syringe IV 04/17/24 22:13 0.5 mg ONCE ONE Administration Iopamidol 80 ml 04/17/24 22:31 04/17/24 22:32 Iopamidol-370 (76%);100ml Bottle IV 04/17/24 22:32 80 ml ONCE ONE Administration Ketorolac Tromethamine 15 mg 04/17/24 22:01 04/17/24 22:02 Ketorolac 30mg/Ml Vial IV 04/17/24 22:02 15 mg ONCE ONE Administration Morphine Sulfate 4 mg 04/17/24 21:27 04/17/24 21:45 Morphine 4mg/Ml Syringe IV 04/17/24 21:28 4 mg ONCE ONE Administration Ondansetron HCl 4 mg 04/17/24 21:27 04/17/24 21:44 Ondansetron 4mg/2ml Vial IV 04/17/24 21:28 4 mg ONCE ONE Administration Ondansetron HCl 4 mg 04/17/24 22:47 04/17/24 22:50 Ondansetron 4mg/2ml Vial IV 04/17/24 22:48 4 mg ONCE ONE Administration Sodium Chloride 50 ml 04/17/24 22:31 04/17/24 22:32 0.9 % Sodium Chloride 50 Ml Vial IV 04/17/24 22:32 50 ml ONCE ONE Administration Sodium Chloride 10 ml 04/17/24 22:31 04/17/24 22:32 Sodium Chloride 0.9% 10ml Syr (Rad Only) IV 04/17/24 22:32 10 ml ONCE ONE Administration ORDERS Category Date Time Status CT abdomen pelvis w con Stat Cat Scan 04/17/24 21:[address] angio chest PE protocol Stat Cat Scan 04/17/24 21:27 Completed Complete Blood Count Auto Diff AMLAB Lab 04/18/24 06:00 Ordered Complete Blood Count Auto Diff AMLAB Lab 04/19/24 06:00 Ordered Complete Blood Count Auto Diff AMLAB Lab 04/20/24 06:00 Ordered Complete Blood Count Auto Diff AMLAB Lab 04/21/24 06:00 Ordered Complete Blood Count Auto Diff AMLAB Lab 04/22/24 06:00 Ordered Complete Blood Count Auto Diff AMLAB Lab 04/23/24 06:00 Ordered Complete Blood Count Auto Diff Stat Lab 04/17/24 21:35 Completed Comprehensive Metabolic Panel AMLAB Lab 04/18/24 06:00 Ordered Comprehensive Metabolic Panel AMLAB Lab 04/19/24 06:00 Ordered Comprehensive Metabolic Panel AMLAB Lab 04/20/24 06:00 Ordered Comprehensive Metabolic Panel AMLAB Lab 04/21/24 06:00 Ordered Comprehensive Metabolic Panel AMLAB Lab 04/22/24 06:00 Ordered Comprehensive Metabolic Panel Stat Lab 04/17/24 21:35 Completed HCG Qualitative, Serum Stat Lab 04/17/24 21:35 Completed Lipase Stat Lab 04/17/24 21:35 Completed Lipid Panel AMLAB Lab 04/18/24 06:00 Ordered Magnesium AMLAB Lab 04/18/24 06:00 Ordered Magnesium Stat Lab 04/17/24 21:35 Completed Troponin I Q3H Lab 04/18/24 00:30 Ordered Troponin I Q3H Lab 04/18/24 03:30 Ordered Troponin I Stat Lab 04/17/24 21:35 Completed Urinalysis and Microscopic Stat Lab 04/17/24 21:17 Completed Medical Decision Narrative: In summary, this 23-year-old female presents to the emergency department today with abdominal pain and chest pain. On initial evaluation patient is afebrile, hypertensive, otherwise stable. On exam, warm well-perfused with full pulses in all extremities prescribe refill. Moist extremities. Oropharynx clear. Heart is regular in rhythm lung sounds clear to station bilaterally. Does have reproducible epigastric and right upper quadrant abdominal pain with positive Olmos sign. No peritoneal signs.. Differential diagnosis includes but is not limited to cholecystitis, symptomatic lithiasis, aortic dissection, pulmonary was him, bowel obstruction, gastritis. Based on these concerns, I ordered CBC CMP lipase magnesium troponin CTA chest and abdomen. ECG personally interpreted demonstrates normal sinus rhythm with no acute ischemic ST changes intervals within normal limits. Patient received morphine, Toradol, Dilaudid for treatment. Labs personally reviewed demonstrate no electrolyte disturbance, no elevation in transaminases, bilirubin within normal limits, no leukocytosis, no evidence of anemia. Patient was handed off to oncoming provider on shift for definitive management and disposition. Please see Transfer of Care information completed by oncoming provider for further management and ultimate disposition. XR personally interpreted demonstrates []. CT imaging personally interpreted demonstrate []. I had an interactive discussion with general surgery Dr Medina. He recommended that if it is cholelithiasis to not call him again overnight and to admit to the hospitalist. On reassessment []. Patient's prescriptions were reviewed and []. Admission as considered and []. Of note, social determinants of health include []. [At this time it was felt that the patient was safe to be discharged home. The patient was in agreement with this plan. The patient was given strict return precautions prior to being discharged from the emergency department.] <Sunil Linder MD - Last Filed: 04/18/24 00:25> Vital Signs: 04/17/24 21:19 Temperature 98.2 F Temperature Source Oral Pulse Rate [Right Brachial] 73 Respiratory Rate 16 Blood Pressure [Right Arm] 145/100 H Blood Pressure Mean [Right Arm] 115 Blood Pressure Source [Right Arm] Automatic Cuff 02 Sat by Pulse Oximetry 98 Oxygen Delivery Method Room Air Lab Data Lab Results 04/17/24 21:17: Urine Color Yellow, Urine Appearance Clear, Urine pH 7.0, Ur Specific [place] 1.025, Urine Protein Negative, Urine Glucose (UA) Negative, Urine Ketones Negative, Urine Blood Negative, Urine Nitrate Negative, Urine Bilirubin Negative, Urine Urobilinogen 0.2, Ur Leukocyte Esterase Negative, Urine RBC None, Urine WBC Occasional, Ur Squamous Epith Cells 5-10, Urine Bacteria Trace 04/17/24 21:35: WBC 9.9, RBC 4.67, Hgb 12.8, Hct 38.9, MCV 83.3, MCH 27.4, MCHC 32.9, RDW 12.9, Plt Count 328, MPV 9.6, Neut % (Auto) 68.4, Lymph % (Auto) 25.1, [place] % (Auto) 5.1, Eos % (Auto) 0.8, Baso % (Auto) 0.4, Neut # (Auto) 6.8, Lymph # (Auto) 2.5, [place] # (Auto) 0.5, Eos # (Auto) 0.1, Baso # (Auto) 0.0, Sodium 140, Potassium 3.8, Chloride 102, Carbon Dioxide 28, Anion Gap 13.8, BUN 13, Creatinine 0.80, Estimated Creat Clear 145, Estimated GFR 87, Est GFR ( Amer) 106, Glucose 93, Calcium 9.6, Magnesium 1.6, Total Bilirubin < 0.1 L, AST 34, ALT 23, Alkaline Phosphatase 44, Troponin I < 0.01, Total Protein 7.8, A lbumin 5.2 H, Globulin 2.6, Albumin/Globulin Ratio 2.0 H, Lipase 123, Serum HCG, Qual Negative Orders (Tests/Meds): ED MEDICATIONS Generic Name Dose Route Start Last Admin Trade Name Freq PRN Reason Stop Dose Admin Sodium Chloride 1,000 mls @ 100 mls/hr 04/18/24 00:30 Sod Chlor 0.9% 1000ml Bag IV 05/18/24 00:29 .Q10H JUVENAL Morphine Sulfate 2 mg 04/18/24 00:16 Morphine 2mg/Ml Syringe IV 05/18/24 00:15 Q4HP PRN Moderate to Severe Pain (4-10) Morphine Sulfate 4 mg 04/18/24 00:16 Morphine 4mg/Ml Syringe IV 05/18/24 00:15 Q4HP PRN Severe Pain (7-10) Ondansetron HCl 4 mg 04/18/24 00:16 Ondansetron 4mg/2ml Vial IV 05/18/24 00:15 Q4HP PRN Nausea Promethazine HCl 25 mg 04/18/24 00:22 Promethazine Hcl 25mg/Ml 1ml Vial IV 04/18/24 00:23 ONCE ONE Sodium Chloride 25 ml 04/18/24 00:22 Sodium Chloride 0.9% 25ml Bag IV 04/18/24 00:23 ONCE ONE Discontinued Medications Generic Name Dose Route Start Last Admin Trade Name Porfirio PRN Reason Stop Dose Admin Hydromorphone HCl 0.5 mg 04/17/24 22:12 04/17/24 22:14 Hydromorphone 2mg/Ml Syringe IV 04/17/24 22:13 0.5 mg ONCE ONE Administration Iopamidol 80 ml 04/17/24 22:31 04/17/24 22:32 Iopamidol-370 (76%);100ml Bottle IV 04/17/24 22:32 80 ml ONCE ONE Administration Ketorolac Tromethamine 15 mg 04/17/24 22:01 04/17/24 22:02 Ketorolac 30mg/Ml Vial IV 04/17/24 22:02 15 mg ONCE ONE Administration Morphine Sulfate 4 mg 04/17/24 21:27 04/17/24 21:45 Morphine 4mg/Ml Syringe IV 04/17/24 21:28 4 mg ONCE ONE Administration Ondansetron HCl 4 mg 04/17/24 21:27 04/17/24 21:44 Ondansetron 4mg/2ml Vial IV 04/17/24 21:28 4 mg ONCE ONE Administration Ondansetron HCl 4 mg 04/17/24 22:47 04/17/24 22:50 Ondansetron 4mg/2ml Vial IV 04/17/24 22:48 4 mg ONCE ONE Administration Sodium Chloride 50 ml 04/17/24 22:31 04/17/24 22:32 0.9 % Sodium Chloride 50 Ml Vial IV 04/17/24 22:32 50 ml ONCE ONE Administration Sodium Chloride 10 ml 04/17/24 22:31 04/17/24 22:32 Sodium Chloride 0.9% 10ml Syr (Rad Only) IV 04/17/24 22:32 10 ml ONCE ONE Administration ORDERS Category Date Time Status CT abdomen pelvis w con Stat Cat Scan 04/17/24 21:[address] angio chest PE protocol Stat Cat Scan 04/17/24 21:27 Completed Complete Blood Count Auto Diff AMLAB Lab 04/18/24 06:00 Ordered Complete Blood Count Auto Diff AMLAB Lab 04/19/24 06:00 Ordered Complete Blood Count Auto Diff AMLAB Lab 04/20/24 06:00 Ordered Complete Blood Count Auto Diff AMLAB Lab 04/21/24 06:00 Ordered Complete Blood Count Auto Diff AMLAB Lab 04/22/24 06:00 Ordered Complete Blood Count Auto Diff AMLAB Lab 04/23/24 06:00 Ordered Complete Blood Count Auto Diff Stat Lab 04/17/24 21:35 Completed Comprehensive Metabolic Panel AMLAB Lab 04/18/24 06:00 Ordered Comprehensive Metabolic Panel AMLAB Lab 04/19/24 06:00 Ordered Comprehensive Metabolic Panel AMLAB Lab 04/20/24 06:00 Ordered Comprehensive Metabolic Panel AMLAB Lab 04/21/24 06:00 Ordered Comprehensive Metabolic Panel AMLAB Lab 04/22/24 06:00 Ordered Comprehensive Metabolic Panel Stat Lab 04/17/24 21:35 Completed HCG Qualitative, Serum Stat Lab 04/17/24 21:35 Completed Lipase Stat Lab 04/17/24 21:35 Completed Lipid Panel AMLAB Lab 04/18/24 06:00 Ordered Magnesium AMLAB Lab 04/18/24 06:00 Ordered Magnesium Stat Lab 04/17/24 21:35 Completed Troponin I Q3H Lab 04/18/24 00:30 Ordered Troponin I Q3H Lab 04/18/24 03:30 Ordered Troponin I Stat Lab 04/17/24 21:35 Completed Urinalysis and Microscopic Stat Lab 04/17/24 21:17 Completed Medical Decision Narrative: In summary, this 23-year-old female presents to the emergency department today with abdominal pain and chest pain. On initial evaluation patient is afebrile, hypertensive, otherwise stable. On exam, warm well-perfused with full pulses in all extremities prescribe refill. Moist extremities. Oropharynx clear. Heart is regular in rhythm lung sounds clear to station bilaterally. Does have reproducible epigastric and right upper quadrant abdominal pain with positive Olmos sign. No peritoneal signs.. Differential diagnosis includes but is not limited to cholecystitis, symptomatic lithiasis, aortic dissection, pulmonary was him, bowel obstruction, gastritis. Based on these concerns, I ordered CBC CMP lipase magnesium troponin CTA chest and abdomen. ECG personally interpreted demonstrates normal sinus rhythm with no acute ischemic ST changes intervals within normal limits. Patient received morphine, Toradol, Dilaudid for treatment. Labs personally reviewed demonstrate no electrolyte disturbance, no elevation in transaminases, bilirubin within normal limits, no leukocytosis, no evidence of anemia. Patient was handed off to oncoming provider on shift for definitive management and disposition. Please see Transfer of Care information completed by oncoming provider for further management and ultimate disposition. Kailash GAITAN: I assumed care of the patient at the time of handoff from the prior provider. On reassessment patient reports she still having pain but it is improved after the Dilaudid. Request more nausea medication. CT imaging independently turbid by me shows cholelithiasis with some associated gallbladder wall thickening consistent with cholecystitis. CT PE shows no evidence of PE or other pathology. Patient agreeable for admission. Interact discussion with cigarette paper tester on-call for admission for cholecystitis. Critical Care <Brian Lombardo MD - Last Filed: 04/17/24 23:13> Critical Care Time Critical Care Time: No
[2024-04-17] MEDS: IOPAMIDOL-370 (76%);100ML BOTTLE 80 ML IV (22:32)
[2024-04-17] MEDS: SODIUM CHLORIDE 0.9% 10ML SYR (RAD ONLY) 10 ML IV (22:32)
[2024-04-17] MEDS: 0.9 % SODIUM CHLORIDE 50 ML VIAL IV (22:32)
--- NOTE | 2024-04-17 22:38 | ECG_ITS ---
APPROVED REPORT Exam: Resting ECG HR:74 bpm ECG Measurements Heart Rate 74 AXES LA 158 P 76 QRSd 96 QRS 62 QT 379 T 41 QTc 406 Conclusion SINUS RHYTHM NORMAL ECG UNCONFIRMED REPORT Electronically signed by : Brian Lombardo, 04/17/2024 23:18:24
[2024-04-18] VITALS (21 sets, daily range): BP systolic 109–137; BP diastolic 61–83; PULSE 64–95; RESP 16–20; TEMP 36.4–43; O2SAT 95–100; BMI 32.2
--- NOTE | 2024-04-18 | PC.NURSE ---
States feeling much better, states that the pain meds made her head feel funny.
--- NOTE | 2024-04-18 00:25 | PC.NURSE ---
ALERT, ORIENTED , SKIN WARM AND DRY, RESP EVEN AND UNLABORED, PATIENT TO BE ADMITTED TO 279. PATIENT SHE WAS FEELING MUCH BETTER. REPORT CALLED TO TWILA.
[2024-04-18] MEDS: SODIUM CHLORIDE 0.9% 25ML BAG 25 ML IV (00:27)
[2024-04-18] MEDS: PROMETHAZINE HCL 25MG/ML 1ML VIAL 25 MG IV ×2 (00:27→13:29)
--- NOTE | 2024-04-18 00:32 | PC.NURSE ---
report received from Coy Trevino RN
[2024-04-18] MEDS: 0.9 % SODIUM CHLORIDE 1000ML 1,000 ML 100 ML IV ×3 (00:56→13:30)
--- NOTE | 2024-04-18 01:20 | PC.NURSE ---
Hospitalist at bedside
[2024-04-18 01:42] LABS: Troponin I < 0.01 ng/ml (0.00-0.034)
--- NOTE | 2024-04-18 02:36 | P.HP_ITS ---
<Statement entered by Gary De Jesus MD - 04/19/24 12:47> I personally evaluated patient and agree with plan of care outlined by the DR[employer]. History of Present Illness *Admission Date: 04/17/24 *Reason for visit:: Abdominal pain *History of present illness: The patient is a 23-year-old female with history of migraine headaches who presents with acute right-sided back pain, chest pain, and right upper quadrant (RUQ) abdominal pain that began approximately three hours prior to arrival. She describes the pain as sharp and stabbing, sometimes feeling like a ?tearing? sensation, which radiates upward into her chest. The pain has been steadily worsening since onset, and she rates it as severe. She denies fever, chills, vomiting, or diarrhea. Her last bowel movement was this morning and was normal, nonbloody, and uneventful. She does not recall any specific triggers, such as recent heavy meals or strenuous activity, and she denies previous episodes of similar pain. She has no history of gallbladder disease, kidney stones, or abdominal surgeries. She also denies dysuria, hematuria, or other urinary complaints. She reports no significant family history of gallbladder disease or gastrointestinal disorders. She tried [id number] analgesics at home ( with minimal relief. She also denies shortness of breath, cough, or palpitations, although she admits feeling anxious due to the severity of the pain. On arrival to the emergency department, she was found to be afebrile but hypertensive, with otherwise stable vital signs. Physical examination revealed a soft, nondistended abdomen with marked RUQ tenderness and a positive Olmos?s sign, consistent with gallbladder irritation. There are no peritoneal signs such as rebound or guarding..Laboratory results show no leukocytosis (WBC 9.9 ? 10?/?L), normal hemoglobin (12.8 g/dL), normal electrolytes (Na 140 mEq/L, K 3.8 mEq/L, Cl 102 mEq/L), mildly elevated lipase at 123 U/L, normal liver enzymes (AST 34 U/L, ALT 23 U/L, alkaline phosphatase 44 U/L), total bilirubin <0.1 mg/dL, troponin <0.01, and albumin 5.2 g/dL. Urinalysis is essentially unremarkable (no protein, no RBCs, no infection indicators). A CT scan of the abdomen shows cholelithiasis with mild gallbladder distension and possible pe richolecystic fluid or mild wall thickening, raising suspicion for acute cholecystitis. A separate CTA of the chest is negative for pulmonary embolism or aortic dissection. She received intravenous opioid and NSAID analgesics (morphine, Toradol, Dilaudid) for pain control and underwent further diagnostic imaging and labs as described below. [facility] Disclaimer: The information contained in this section may have been updated after the patient was seen, as this information can be updated by other users. Medical History Decreased libido without sexual dysfunction Dyspareunia Chronic pelvic pain in female Vaginal discharge Anxiety Migraine Hx of cataract Anemia during Endometritis following delivery Upper respiratory infection Hypomagnesemia Hypokalemia Fever Mastitis History of migraine with aura Abnormal uterine bleeding Alopecia Encounter for initial prescription of Nexplanon Group A streptococcal infection Encounter for visit Surgical History History of phacoemulsification of cataract of left eye with intraocular lens implantation History of tonsillectomy and adenoidectomy Status post vaginal delivery Family History Other Anemia Cancer Coronary artery disease Hypertension Social History Smoking Status: Never smoker alcohol intake: never counseling provided: none substance use type: denies use current occupational status: employed Travel in the last 8 weeks: None household members: family housing: house marital status: life partner Have you lived/traveled outside [place] in past 30 days?: No Contact w/someone who lives/traveled outside US past 30 days?: No Exposure to someone with infectious disease in past 14 days?: No Do you have a fever (greater than 100.4 F or 38 C)?: No Have you tested positive for COVID-19: No Exposed to someone with COVID-19 in past 14 days?: No Do you have a sore throat?: No Do you have a cough?: No Do you have any weakness?: No Do you have any diarrhea?: No Are you experiencing any unusual bleeding?: No Do you have any muscle aches/pain?: No Do you have any abdominal pain?: Yes Are you experiencing loss of taste or smell?: No Other Medical History Have you received the Flu Vaccine for this season: Yes Have you received the Pneumonia Vaccine: No Review of Systems Review of Systems Review of systems (narrative): 13 point review of systems negative outside of HPI Meds Home Medications and Allergies Home Medications ?Medication ?Instructions ?Recorded ?Confirmed ?Type etonogestrel 68 mg subdermal 1 implant subdermal ONCE 06/30/23 03/24/24 History implant (Nexplanon) atogepant 60 mg tablet (Qulipta) 60 mg PO DAILY #90 tabs 07/30/23 03/24/24 Rx rimegepant 75 mg disintegrating 75 mg PO Q OTHER DAY PRN migraine 11/04/23 03/24/24 Rx tablet (Nurtec ODT) headache #10 tabs albuterol sulfate 90 mcg/actuation 2 puff inhalation Q6H PRN 11/30/23 03/24/24 Rx aerosol inhaler (Ventolin HFA) shortness of breath or wheezing #6.7 grams guaifenesin 600 mg tablet, 600 - 1,200 mg (1 - 2 x 600 mg) PO 11/30/23 03/24/24 Rx extended release 12 hr (Mucinex) BIDP PRN Congestion #30 tabs fluconazole 150 mg tablet 150 mg PO Q72H 2 doses #2 tabs 03/31/24 03/31/24 Rx metronidazole 500 mg tablet 500 mg PO BID 7 days #14 tabs 03/31/24 03/31/24 Rx New Prescriptions to Start Prescriptions: Allergies Allergy/AdvReac Type Severity Reaction Status Date / Time No Known Allergies Allergy Verified 03/24/24 14:30 Exam Data for Last 24 hours Vital signs and Labs for Last 24 Hours: Temp Pulse Resp BP Pulse Ox O2 Del Method 98.3 F 84 18 119/79 99 Room Air 04/18/24 00:42 04/18/24 00:42 04/18/24 00:42 04/18/24 00:42 04/18/24 00:39 04/18/24 02:29 Laboratory Results - last 24 hr 04/17/24 21:17: Urine Color Yellow, Urine Appearance Clear, Urine pH 7.0, Ur Specific [place] 1.025, Urine Protein Negative, Urine Glucose (UA) Negative, Urine Ketones Negative, Urine Blood Negative, Urine Nitrate Negative, Urine Bilirubin Negative, Urine Urobilinogen 0.2, Ur Leukocyte Esterase Negative, Urine RBC None, Urine WBC Occasional, Ur Squamous Epith Cells 5-10, Urine Bacteria Trace 04/17/24 21:35: WBC 9.9, RBC 4.67, Hgb 12.8, Hct 38.9, MCV 83.3, MCH 27.4, MCHC 32.9, RDW 12.9, Plt Count 328, MPV 9.6, Neut % (Auto) 68.4, Lymph % (Auto) 25.1, [place] % (Auto) 5.1, Eos % (Auto) 0.8, Baso % (Auto) 0.4, Neut # (Auto) 6.8, Lymph # (Auto) 2.5, [place] # (Auto) 0.5, Eos # (Auto) 0.1, Baso # (Auto) 0.0, Sodium 140, Potassium 3.8, Chloride 102, Carbon Dioxide 28, Anion Gap 13.8, BUN 13, Creatinine 0.80, Estimated Creat Clear 145, Estimated GFR 87, Est GFR ( Amer) 106, Glucose 93, Calcium 9.6, Magnesium 1.6, Total Bilirubin < 0.1 L, AST 34, ALT 23, Alkaline Phosphatase 44, Troponin I < 0.01, Total Protein 7.8, Albumin 5.2 H, Globulin 2.6, Albumin/Globulin Ratio 2.0 H, Lipase 123, Serum HCG, Qual Negative 04/18/24 01:00: Troponin I < 0.01 I & O for Last 24 hours: Intake & Output 04/15/24 04/16/24 04/17/24 04/18/24 23:59 23:59 23:59 23:59 Weight 85.729 kg Constitutional Constitutional: no acute distress *Routine HEENT Exam Head: Present normocephalic Eye: Present EOMI and PERRL ENT: Present mucous membranes moist *Routine Neck Exam Neck: Present supple; Absent lymphadenopathy *Routine Respiratory Exam Respiratory: Present CTA bilaterally *Routine Cardiovascular Exam Cardiovascular: Present RRR *Routine Abdominal Exam Abdominal: Present soft and normoactive bowel sounds; Absent tenderness *Routine Rectal Exam Rectal:: deferred *Routine Genitalia Exam Genitalia:: deferred *Routine Extremities Exam Extremities: Absent cyanosis, clubbing or edema *Routine Skin Exam Skin: Present warm; Absent rash *Routine Neurological Exam Neurological: Present alert and oriented X3 Assessment and Plan *Assessment and plan (1) Acute cholecystitis: Status: Acute Category: Medical Code(s): K81.0 - Acute cholecystitis (2) History of migraine with aura: Status: Acute Category: Medical Code(s): Z86.69 - Personal history of other diseases of the nervous system and sense organs (3) Abdominal pain: Status: Acute Category: Medical Code(s): R10.9 - Unspecified abdominal pain Plan Medical Decision Making Given her severe RUQ pain with a positive Olmos?s sign, cholelithiasis, and possible pericholecystic fluid on CT, there is a high clinical suspicion for acute cholecystitis. The negative CTA of the chest effectively rules out acute aortic dissection and pulmonary embolism, addressing initial concerns about her ?tearing? pain radiating to the chest. Lab work does not indicate major electrolyte disturbances or significant inflammation (no leukocytosis), but the mildly elevated lipase suggests a mild or secondary pancreatic irritation, which can be associated with gallbladder disease. Her stable vital signs and absence of peritoneal signs allow for a focused gallbladder workup rather than emergent surgical intervention at this moment. Surgical consultation is advised given the likely diagnosis of acute cholecystitis. Acute Cholecystitis * Obtain right upper quadrant (RUQ) ultrasound to confirm acute cholecystitis (evaluate gallbladder wall thickness, pericholecystic fluid, sonographic Olmos?s sign). * Initiate IV Zosyn appropriate for biliary pathogens. * Maintain NPO status and provide IV fluids for hydration. * Continue adequate pain control with analgesics. * Consult General Surgery for possible cholecystectomy, pending imaging results and clinical course. Chest and Back Pain * CTA chest has ruled out major cardiopulmonary causes (PE, aortic dissection). * Continue to monitor vital signs and reassess if any new cardiopulmonary symptoms arise. Mildly Elevated Lipase * Observe clinical status for any signs of pancreatitis. * No additional intervention at this time unless pain pattern changes or enzyme levels rise significantly. Hypertension * Monitor blood pressure closely; pain control may help reduce sympathetic drive. * Adjust antihypertensive therapy as clinically indicated. Disposition: Full code Admit to hospital [facility] NPO diet DVT prophylaxis with SCDs Hold anticoagulant pending surgical consultation
[2024-04-18] MEDS: PIPERACILLIN/TAZO 3.375 GM in 0.9 % SODIUM CHLORIDE 50 ML IV ×2 (03:12→11:00)
[2024-04-18] MEDS: KETOROLAC 30MG/ML VIAL 15 MG IM (03:15)
[2024-04-18 04:15] LABS: Troponin I < 0.01 ng/ml (0.00-0.034)
--- NOTE | 2024-04-18 06:45 | P.CONS_ITS ---
History of Present Illness *Admission Date: 04/17/24 *Reason for visit:: Calculus cholecystitis *History of present illness: Is a 23-year-old female seen in consultation after evaluation emergency department for abdominal pain. Please see HPI forwarded from admission H&P below. Currently she feels much better . She states that her pain is down from about a 10 to a 4 . No fevers. No jaundice. Forwarded from admission H&P: The patient is a 23-year-old female with history of migraine headaches who presents with acute right-sided back pain, chest pain, and right upper quadrant (RUQ) abdominal pain that began approximately three hours prior to arrival. She describes the pain as sharp and stabbing, sometimes feeling like a ?tearing? sensation, which radiates upward into her chest. The pain has been steadily worsening since onset, and she rates it as severe. She denies fever, chills, vomiting, or diarrhea. Her last bowel movement was this morning and was normal, nonbloody, and uneventful. She does not recall any specific triggers, such as recent heavy meals or strenuous activity, and she denies previous episodes of similar pain. She has no history of gallbladder disease, kidney stones, or abdominal surgeries. She also denies dysuria, hematuria, or other urinary complaints. She reports no significant family history of gallbladder disease or gastrointestinal disorders. She tried [id number] analgesics at home ( with minimal relief. She also denies shortness of breath, cough, or palpitations, although she admits feeling anxious due to the severity of the pain. On arrival to the emergency department, she was found to be afebrile but hypertensive, with otherwise stable vital signs. Physical examination revealed a soft, nondistended abdomen with marked RUQ tenderness and a positive Olmos?s sign, consistent with gallbladder irritation. There are no peritoneal signs such as rebound or guarding..Laboratory results show no leukocytosis (WBC 9.9 ? 10?/?L), normal hemoglobin (12.8 g/dL), normal electrolytes (Na 140 mEq/L, K 3.8 mEq/L, Cl 102 mEq/L), mildly elevated lipase at 123 U/L, normal liver enzymes (AST 34 U/L, ALT 23 U/L, alkaline phosphatase 44 U/L), total bilirubin <0.1 mg/dL, troponin <0.01, and albumin 5.2 g/dL. Urinalysis is essentially unremarkable (no protein, no RBCs, no infection indicators). A CT scan of the abdomen shows cholelithiasis with mild gallbladder distension and possible pericholecystic fluid or mild wall thickening, raising suspicion for acute cholecystitis. A separate CTA of the chest is negative for pulmonary embolism or aortic dissection. She received intravenous opioid and NSAID analgesics (morphine, Toradol, Dilaudid) for pain control and underwent further diagnostic imaging and labs as described below. [facility] Disclaimer: The information contained in this section may have been updated after the patient was seen, as this information can be updated by other users. Medical History Decreased libido without sexual dysfunction Dyspareunia Chronic pelvic pain in female Vaginal discharge Anxiety Migraine Hx of cataract Anemia during Endometritis following delivery Upper respiratory infection Hypomagnesemia Hypokalemia Fever Mastitis History of migraine with aura Abnormal uterine bleeding Alopecia Encounter for initial prescription of Nexplanon Group A streptococcal infection Encounter for visit Surgical History History of phacoemulsification of cataract of left eye with intraocular lens implantation History of tonsillectomy and adenoidectomy Status post vaginal delivery Family History Other Anemia Cancer Coronary artery disease Hypertension Social History Smoking Status: Never smoker alcohol intake: never counseling provided: none substance use type: denies use current occupational status: employed Travel in the last 8 weeks: None household members: family housing: house marital status: life partner Have you lived/traveled outside US in past 30 days?: No Contact w/someone who lives/traveled outside US past 30 days?: No Exposure to someone with infectious disease in past 14 days?: No Do you have a fever (greater than 100.4 F or 38 C)?: No Have you tested positive for COVID-19: No Exposed to someone with COVID-19 in past 14 days?: No Do you have a sore throat?: No Do you have a cough?: No Do you have any weakness?: No Do you have any diarrhea?: No Are you experiencing any unusual bleeding?: No Do you have any muscle aches/pain?: No Do you have any abdominal pain?: Yes Are you experiencing loss of taste or smell?: No Meds Home Medications and Allergies Home Medications ?Medication ?Instructions ?Recorded ?Confirmed ?Type etonogestrel 68 mg subdermal 1 implant subdermal ONCE 06/30/23 03/24/24 History implant (Nexplanon) atogepant 60 mg tablet (Qulipta) 60 mg PO DAILY #90 tabs 07/30/23 03/24/24 Rx rimegepant 75 mg disintegrating 75 mg PO Q OTHER DAY PRN migraine 11/04/23 03/24/24 Rx tablet (Nurtec ODT) headache #10 tabs albuterol sulfate 90 mcg/actuation 2 puff inhalation Q6H PRN 11/30/23 03/24/24 Rx aerosol inhaler (Ventolin HFA) shortness of breath or wheezing #6.7 grams guaifenesin 600 mg tablet, 600 - 1,200 mg (1 - 2 x 600 mg) PO 11/30/23 03/24/24 Rx extended release 12 hr (Mucinex) BIDP PRN Congestion #30 tabs fluconazole 150 mg tablet 150 mg PO Q72H 2 doses #2 tabs 03/31/24 03/31/24 Rx metronidazole 500 mg tablet 500 mg PO BID 7 days #14 tabs 03/31/24 03/31/24 Rx New Prescriptions to Start Prescriptions: Allergies Allergy/AdvReac Type Severity Reaction Status Date / Time No Known Allergies Allergy Verified 03/24/24 14:30 Exam (Inpt) Vital signs and Labs for Last 24 Hours: Temp Pulse Resp BP Pulse Ox O2 Del Method 98.3 F 84 18 119/79 100 Room Air 04/18/24 00:42 04/18/24 00:42 04/18/24 00:42 04/18/24 00:42 04/18/24 04:27 04/18/24 06:00 Laboratory Results - last 24 hr 04/17/24 21:17: Urine Color Yellow, Urine Appearance Clear, Urine pH 7.0, Ur Specific [place] 1.025, Urine Protein Negative, Urine Glucose (UA) Negative, Urine Ketones Negative, Urine Blood Negative, Urine Nitrate Negative, Urine Bilirubin Negative, Urine Urobilinogen 0.2, Ur Leukocyte Esterase Negative, Urine RBC None, Urine WBC Occasional, Ur Squamous Epith Cells 5-10, Urine Bacteria Trace 04/17/24 21:35: WBC 9.9, RBC 4.67, Hgb 12.8, Hct 38.9, MCV 83.3, MCH 27.4, MCHC 32.9, RDW 12.9, Plt Count 328, MPV 9.6, Neut % (Auto) 68.4, Lymph % (Auto) 25.1, [place] % (Auto) 5.1, Eos % (Auto) 0.8, Baso % (Auto) 0.4, Neut # (Auto) 6.8, Lymph # (Auto) 2.5, [place] # (Auto) 0.5, Eos # (Auto) 0.1, Baso # (Auto) 0.0, Sodium 140, Potassium 3.8, Chloride 102, Carbon Dioxide 28, Anion Gap 13.8, BUN 13, Creatinine 0.80, Estimated Creat Clear 145, Estimated GFR 87, Est GFR ( Amer) 106, Glucose 93, Calcium 9.6, Magnesium 1.6, Total Bilirubin < 0.1 L, AST 34, ALT 23, Alkaline Phosphatase 44, Troponin I < 0.01, Total Protein 7.8, A lbumin 5.2 H, Globulin 2.6, Albumin/Globulin Ratio 2.0 H, Lipase 123, Serum HCG, Qual Negative 04/18/24 01:00: Troponin I < 0.01 04/18/24 03:40: Troponin I < 0.01 I & O for Labs for Last 24 Hours: Intake & Output 04/15/24 04/16/24 04/17/24 04/18/24 11:59 11:59 11:59 11:59 Weight 189 lb 0.001 oz Constitutional: no acute distress Respiratory: Absent respiratory distress Cardiac: Present Reg Rate and Rhythm GI: Present soft and tenderness Results Labs 04/17/24 21:35 04/17/24 21:35 Labs: Laboratory Results - last 24 hr 04/17/24 21:17: Urine Color Yellow, Urine Appearance Clear, Urine pH 7.0, Ur Specific [place] 1.025, Urine Protein Negative, Urine Glucose (UA) Negative, Urine Ketones Negative, Urine Blood Negative, Urine Nitrate Negative, Urine Bilirubin Negative, Urine Urobilinogen 0.2, Ur Leukocyte Esterase Negative, Urine RBC None, Urine WBC Occasional, Ur Squamous Epith Cells 5-10, Urine Bacteria Trace 04/17/24 21:35: WBC 9.9, RBC 4.67, Hgb 12.8, Hct 38.9, MCV 83.3, MCH 27.4, MCHC 32.9, RDW 12.9, Plt Count 328, MPV 9.6, Neut % (Auto) 68.4, Lymph % (Auto) 25.1, [place] % (Auto) 5.1, Eos % (Auto) 0.8, Baso % (Auto) 0.4, Neut # (Auto) 6.8, Lymph # (Auto) 2.5, [place] # (Auto) 0.5, Eos # (Auto) 0.1, Baso # (Auto) 0.0, Sodium 140, Potassium 3.8, Chloride 102, Carbon Dioxide 28, Anion Gap 13.8, BUN 13, Creatinine 0.80, Estimated Creat Clear 145, Estimated GFR 87, Est GFR ( Amer) 106, Glucose 93, Calcium 9.6, Magnesium 1.6, Total Bilirubin < 0.1 L, AST 34, ALT 23, Alkaline Phosphatase 44, Troponin I < 0.01, Total Protein 7.8, A lbumin 5.2 H, Globulin 2.6, Albumin/Globulin Ratio 2.0 H, Lipase 123, Serum HCG, Qual Negative 04/18/24 01:00: Troponin I < 0.01 04/18/24 03:40: Troponin I < 0.[address] scan - abdomen: report reviewed and image reviewed CT scan - pelvis: report reviewed and image reviewed Assessment and Plan *Assessment and plan (1) Acute cholecystitis without calculus: Status: Acute Category: Medical Code(s): K81.0 - Acute cholecystitis Plan: Currently improved with regard to symptomatology. I discussed the risks and benefits of cholecystectomy today versus discharge with close outpatient follow- up. The patient wishes to proceed with cholecystectomy today secondary to being worried about another flareup in the next day or 2 . Plan laparoscopic cholecystectomy today. I have discussed the risks and benefits including, but not limited to: Bleeding Infection Damage to surrounding tissue Inherent risks of sedation The patient agrees to proceed.
--- NOTE | 2024-04-18 07:00 | US_ITS ---
FINAL REPORT CLINICAL HISTORY: Confirm cholecystitis COMPARISON: None FINDINGS: RUQ ULTRASOUND: Sonographic images of the right upper quadrant were obtained. The pancreas is partially obscured.The liver has an unremarkable appearance. Multiple gallstones are noted in the gallbladder. The gallbladder wall is normal in thickness, measuring 2.3 mm. There is no evidence of biliary ductal dilatation.The common duct measures 3 mm. Limited images of the right kidney are unremarkable. IMPRESSION: Multiple gallstones are present in the gallbladder without evidence of biliary ductal dilatation. Reviewed, Interpreted and Dictated by Anival Allen MD Transcribed by Aisha Zambrano Authenticated and [facility]
--- NOTE | 2024-04-18 07:14 | PC.NURSE ---
Pt taken to Radiology for Ultrasound.
[2024-04-18 07:18] LABS: Basophils % 0.4 % (0.1-2.0); Eosinophils % 0.3 % (0.1-12.0); Hematocrit 37.6 % (37.0-47.0); Lymphocytes # 1.4 K/mm3 (0.7-4.5); Lymphocytes % 19.5 % (10-50); Mean Corpuscular HGB Conc 31.9 g/dL (31.8-35.4); Mean Corpuscular Hemoglobin 27.1 pg (27.0-31.2); Mean Corpuscular Volume 84.9 fl (81-99); Mean Platelet Volume 9.5 fl (7.4-10.4); Monocytes # 0.5 K/mm3 (0.1-1.0); Monocytes % 6.3 % (1.7-9.3); Neutrophils # 5.2 K/mm3 (1.8-7.8); Neutrophils % 73.1 % (37.0-80.0); Platelet Count 289 K/mm3 (142-424); Red Blood Count 4.43 M/mm3 (4.20-5.40); Red Cell Distribution Width 12.9 % (11.5-17.5); White Blood Count 7.1 K/mm3 (4.8-10.8)
[2024-04-18 07:23] LABS: Alanine Aminotransferase 25 U/L (12-78); Albumin Level 4.1 g/dl (3.5-5.0); Albumin/Globulin Ratio 1.7 (1.1-1.8); Alkaline Phosphatase 39 U/L (38-126); Anion Gap 10.3 mEq/L (5-15); Aspartate Amino Transferase 36 U/L (14-36); Bilirubin,Total 0.3 mg/dl (0.2-1.3); Blood Urea Nitrogen 11 mg/dl (7-17); Calcium 8.7 mg/dl (8.4-10.2); Carbon Dioxide 28 mmol/L (22.0-30.0); Chloride 104 mmol/L (98-107); Cholesterol 123 mg/dl (140-200); Creatinine Clearance Estimated 166 mL/min (50-200); Estimated Glomerular Filt Rate 102 ml/min (>60); GFR (African American) 123 ML/MIN (>60); Globulin 2.4 g/dL (1.3-3.2); Glucose 92 mg/dl (74-100); HDL Cholesterol 41 mg/dl (40-60); Magnesium 1.7 mg/dl (1.6-2.3); Potassium 4.3 mmoL/L (3.5-5.1); Sodium 138 mmol/L (136-145); Total Protein,Serum 6.5 g/dl (6.3-8.2); Triglycerides 38 mg/dl (30-150); VLDL Cholesterol 8 mg/dL (0-40)
[2024-04-18 07:33] LABS: Direct LDL Cholesterol 57.47 mg/dL (100-129)
--- NOTE | 2024-04-18 07:40 | PC.NURSE ---
Pt back to room from Radiology.
--- NOTE | 2024-04-18 07:58 | HMH.PHAINT1 ---
Pharmacy Intervention Comments: MEDICATION RECONCILIATION COMPLETED ON PATIENT USING EXTERNAL FILL HISTORY FROM PHARMACY. -JAMIE ALFARO, CHOND
[2024-04-18] MEDS: ONDANSETRON 4MG/2ML VIAL 4 MG IV ×2 (08:00→12:41)
[2024-04-18] MEDS: SODIUM CHLORIDE 0.9% 10ML FLUSH SYRINGE 10 ML IV ×2 (08:00→16:40)
--- NOTE | 2024-04-18 10:00 | PC.NURSE ---
Pt taken off the floor to Pre Op by Surgery staff x2 via bed.
--- NOTE | 2024-04-18 10:44 | P.PNANES_ITS ---
[facility] Disclaimer: The information contained in this section may have been updated after the patient was seen, as this information can be updated by other users. Medical History Decreased libido without sexual dysfunction Dyspareunia Chronic pelvic pain in female Vaginal discharge Anxiety Migraine Hx of cataract Anemia during Endometritis following delivery Upper respiratory infection Hypomagnesemia Hypokalemia Fever Mastitis History of migraine with aura Abnormal uterine bleeding Alopecia Encounter for initial prescription of Nexplanon Group A streptococcal infection Encounter for visit Surgical History History of phacoemulsification of cataract of left eye with intraocular lens imp lantation History of tonsillectomy and adenoidectomy Status post vaginal delivery Family History Other Anemia Cancer Coronary artery disease Hypertension Social History Smoking Status: Never smoker alcohol intake: never counseling provided: none substance use type: denies use current occupational status: employed Travel in the last 8 weeks: None household members: family housing: house marital status: life partner Have you lived/traveled outside [place] in past 30 days?: No Contact w/someone who lives/traveled outside US past 30 days?: No Exposure to someone with infectious disease in past 14 days?: No Do you have a fever (greater than 100.4 F or 38 C)?: No Have you tested positive for COVID-19: No Exposed to someone with COVID-19 in past 14 days?: No Do you have a sore throat?: No Do you have a cough?: No Do you have any weakness?: No Do you have any diarrhea?: No Are you experiencing any unusual bleeding?: No Do you have any muscle aches/pain?: No Do you have any abdominal pain?: Yes Are you experiencing loss of taste or smell?: No [facility] Anesthesia Checklist Patient Identification Patient Identification: Arm Band Structural Data Admitted From: Home Planned Operative Procedure/s: Laparoscopic Cholecystectomy Consent for Planned Operative Procedure(s) Verified: Yes Verified Documents: Surgical Consent and History and Physical NPO Status Verified Time NPO: 00:00 Additional verifications Anesthesia Reactions: Yes (PONV) Airway Assessment Mallampati Score:: Class II C-Spine Mobility Assessed: Yes TMJ Mobility Assessed: Yes Dentition: Good Dentition Neurological Assessment Level of Consciousness: Awake, Alert and Appropriate Anesthesia Plan Anesthesia Risk discussed: Yes Anesthesia Plan: Verified ASA Class: II Anesthesia Type: General
--- NOTE | 2024-04-18 10:53 | P.OP_ITS ---
Date of procedure: 04/18/24 Pre-op Diagnosis:: Acute calculus cholecystitis Post-op Diagnosis:: Same Procedure performed:: Laparoscopic cholecystectomy Surgeon:: Jack Silva MD Anesthesia: GETKeith Estimated blood loss (mL): 15 Operative findings:: Mild to moderate gallbladder distention Minimal serosal weeping Significant infundibular thickening Operative note:: After informed consent was obtained, the patient was taken to the operating room and placed in the supine position. General anesthesia was induced and the abdomen was prepped and draped in a sterile fashion. After infiltration with local anesthetic an infraumbilical incision was made. A Veress needle was placed in position. The abdomen was insufflated. A 5 mm optical trocar was placed in position. Under direct visualization, a 12 mm trocar was placed in the subxiphoid position and 2 additional 5 mm trocars were placed in the right upper quadrant. The gallbladder was elevated up and over the liver margin. The tissue around the cystic duct was carefully dissected. 3 clips were placed proximally and the duct was transected with harmonic arnulfo. Harmonic arnulfo were then utilized to dissect the gallbladder away from the liver margin. The cystic artery was notably branching. Each branch was controlled with combination of metallic clips and harmonic arnulfo. Once freed from surrounding tissue/liver margin the gallbladder was placed in a retrieval bag and removed through the subxiphoid trocar site. The right upper quadrant was thoroughly irrigated. No active bleeding or bile leak was noted. Fascia at the subxiphoid trocar site was reapproximated utilizing the NeoClose device. The remaining trocars were removed. All wounds were irrigated and skin was closed with 4-0 Monocryl in a mattress fashion to facilitate hemostasis. The patient's anesthet ic agents were reversed and extubation was completed prior to transfer to recovery in stable condition. Condition: stable Disposition: PACU Specimens:: Gallbladder Complications:: No immediate
[2024-04-18] MEDS: CEFAZOLIN SODIUM 2 GM in 0.9 % SODIUM CHLORIDE 100 ML IV (11:00)
[2024-04-18] MEDS: LIDOCAINE 1% 20ML MDV 20 ML (11:25)
[2024-04-18] MEDS: SODIUM CHLORIDE IRRIG SOLUTION 3,000 ML 3000 ML IR (11:26)
[2024-04-18] MEDS: BACITRACIN ZINC OINT 30GM TUBE 28 GM TP (11:40)
--- NOTE | 2024-04-18 12:18 | P.PNANES_ITS ---
[facility] Anesthesia Record Part I Anesthesia Record I Intake, IV Amount: 200 Hydration: Adequate Estimated blood loss (mL): 5 Urine output (mL): 0 Blood Products used (#): none Blood Pressure: 137/73 SaO2: 96 Pulse Rate: 95 Airway Patency: Patent Respiratory Rate: 16 Temperature: 98.1 F Patient is:: Drowsy, Nasal O2 and Stable Stable to PACU at:: 12:06
[2024-04-18] MEDS: KETOROLAC 30MG/ML VIAL 15 MG IV ×2 (12:20→16:39)
--- NOTE | 2024-04-18 13:29 | EXP.ANES.II ---
[facility] Anesthesia Record Part II Anesthesia Record Part II Discharge Time: 12:39 Destination: Surgical Day Care (OP Surgery) PACU nurse assessment reviewed?: Yes Patient Condition:: Good Anesthesia Complications:: None Swallowing reflex intact?: Yes Airway Patency: Patent Cyanosis?: No Blood Pressure: 127/72 SaO2: 98 Respiratory Rate: 18 Pulse Rate: 78 Temperature: 98.1 F Mental Status: Alert & Oriented Pain level:: 0 Nausea and/or vomitting:: None Intake, IV Amount: 0 Hydration: Adequate
--- NOTE | 2024-04-18 14:46 | PC.NURSE ---
Pt given Apple Juice to drink.
--- NOTE | 2024-04-18 14:56 | PC.NURSE ---
ICE PACK given to place on 2 upper trochar incisions that are really sore to touch. Denies any pain or discomfort of other 2 incisions.
--- NOTE | 2024-04-18 15:17 | P.DS_ITS ---
General Admission date:: 04/18/24 HPI HPI HPI: Is a 23-year-old female seen in consultation after evaluation emergency department for abdominal pain. Please see HPI forwarded from admission H&P below. Currently she feels much better . She states that her pain is down from about a 10 to a 4 . No fevers. No jaundice. Forwarded from admission H&P: The patient is a 23-year-old female with history of migraine headaches who presents with acute right-sided back pain, chest pain, and right upper quadrant (RUQ) abdominal pain that began approximately three hours prior to arrival. She describes the pain as sharp and stabbing, sometimes feeling like a ?tearing? sensation, which radiates upward into her chest. The pain has been steadily worsening since onset, and she rates it as severe. She denies fever, chills, vomiting, or diarrhea. Her last bowel movement was this morning and was normal, nonbloody, and uneventful. She does not recall any specific triggers, such as recent heavy meals or strenuous activity, and she denies previous episodes of similar pain. She has no history of gallbladder disease, kidney stones, or abdominal surgeries. She also denies dysuria, hematuria, or other urinary complaints. She reports no sign ificant family history of gallbladder disease or gastrointestinal disorders. She tried tuye-qek-igewhhm analgesics at home ( with minimal relief. She also denies shortness of breath, cough, or palpitations, although she admits feeling anxious due to the severity of the pain. On arrival to the emergency department, she was found to be afebrile but hypertensive, with otherwise stable vital signs. Physical examination revealed a soft, nondistended abdomen with marked RUQ tenderness and a positive Olmos?s sign, consistent with gallbladder irritation. There are no peritoneal signs such as rebound or guarding..Laboratory results show no leukocytosis (WBC 9.9 ? 10?/?L), normal hemoglobin (12.8 g/dL), normal electrolytes (Na 140 mEq/L, K 3.8 mEq/L, Cl 102 mEq/L), mildly elevated lipase at 123 U/L, normal liver enzymes (AST 34 U/L, ALT 23 U/L, alkaline phosphatase 44 U/L), total bilirubin <0.1 mg/dL, troponin <0.01, and albumin 5.2 g/dL. Urinalysis is essentially unremarkable (no protein, no RBCs, no infection indicators). A CT scan of the abdomen shows cholelithiasis with mild gallbladder distension and possible pericholecystic fluid or mild wall thickening, raising suspicion for acute c holecystitis. A separate CTA of the chest is negative for pulmonary embolism or aortic dissection. She received intravenous opioid and NSAID analgesics (morphine, Toradol, Dilaudid) for pain control and underwent further diagnostic imaging and labs as described below. Hospital Course Hospital Course Hospital Course: Marylu Daily is a 23-year-old female who was admitted for acute cholecystitis. #Acute cholecystitis ? Presented with nausea/vomiting, right upper quadrant pain. ? CT and gallbladder ultrasound revealing of cholecystitis. No evidence of sepsis. ? General Surgery consulted, s/p laparoscopic cholecystectomy 04/18/2024. Patient tolerated procedure well. ? Tolerating oral intake, ambulating without assistance. Educated patient on nutrition post cholecystectomy. ? Discharged with [place] as needed. Will follow-up with general surgery within 2 weeks. Total time spent on discharge: 31 minutes on chart review, counseling, documentation, and direct care with patient. Exam Data for Last 24 hours Vital signs and Labs for Last 24 Hours: Temp Pulse Resp BP Pulse Ox O2 Del Method 97.8 F 86 18 110/65 97 Room Air 04/18/24 13:10 04/18/24 14:40 04/18/24 14:40 04/18/24 14:40 04/18/24 14:40 04/18/24 14:58 Laboratory Results - last 24 hr 04/17/24 21:17: Urine Color Yellow, Urine Appearance Clear, Urine pH 7.0, Ur Specific [place] 1.025, Urine Protein Negative, Urine Glucose (UA) Negative, Urine Ketones Negative, Urine Blood Negative, Urine Nitrate Negative, Urine Bilirubin Negative, Urine Urobilinogen 0.2, Ur Leukocyte Esterase Negative, Urine RBC None, Urine WBC Occasional, Ur Squamous Epith Cells 5-10, Urine Bacteria Trace 04/17/24 21:35: WBC 9.9, RBC 4.67, Hgb 12.8, Hct 38.9, MCV 83.3, MCH 27.4, MCHC 32.9, RDW 12.9, Plt Count 328, MPV 9.6, Neut % (Auto) 68.4, Lymph % (Auto) 25.1, [place] % (Auto) 5.1, Eos % (Auto) 0.8, Baso % (Auto) 0.4, Neut # (Auto) 6.8, Lymph # (Auto) 2.5, [place] # (Auto) 0.5, Eos # (Auto) 0.1, Baso # (Auto) 0.0, Sodium 140, Potassium 3.8, Chloride 102, Carbon Dioxide 28, Anion Gap 13.8, BUN 13, Creatinine 0.80, Estimated Creat Clear 145, Estimated GFR 87, Est GFR ( Amer) 106, Glucose 93, Calcium 9.6, Magnesium 1.6, Total Bilirubin < 0.1 L, AST 34, ALT 23, Alkaline Phosphatase 44, Troponin I < 0.01, Total Protein 7.8, Albumin 5.2 H, Globulin 2.6, Albumin/Globulin Ratio 2.0 H, Lipase 123, Serum HCG, Qual Negative 04/18/24 01:00: Troponin I < 0.01 04/18/24 03:40: Troponin I < 0.01 04/18/24 06:55: WBC 7.1 D, RBC 4.43, Hgb 12.0 L, Hct 37.6, MCV 84.9, MCH 27.1, MCHC 31.9, RDW 12.9, Plt Count 289, MPV 9.5, Neut % (Auto) 73.1, Lymph % (Auto) 19.5, [place] % (Auto) 6.3, Eos % (Auto) 0.3, Baso % (Auto) 0.4, Neut # (Auto) 5.2, Lymph # (Auto) 1.4, [place] # (Auto) 0.5, Eos # (Auto) 0.0, Baso # (Auto) 0.0, Sodium 138, Potassium 4.3, Chloride 104, Carbon Dioxide 28, Anion Gap 10.3, BUN 11, Creatinine 0.70, Estimated Creat Clear 166, Estimated GFR 102, Est GFR ( Amer) 123, Glucose 92, Calcium 8.7, Magnesium 1.7, Total Bilirubin 0.3, AST 36, ALT 25, Alkaline Phosphatase 39, Total Protein 6.5, Albumin 4.1 D, Globulin 2.4, Albumin/Globulin Ratio 1.7, Triglycerides 38, Cholesterol 123 L, LDL Cholesterol Direct 57.47 L, VLDL Cholesterol 8, HDL Cholesterol 41, Cholesterol/HDL Ratio 3.0 I & O for Last 24 hours: Intake & Output 04/15/24 04/16/24 04/17/24 04/18/24 23:59 23:59 23:59 23:59 Intake Total 200 / 200 Balance 200 / 200 Weight 85.729 kg 85.729 kg Constitutional Constitutional: no acute distress *Routine HEENT Exam Head: Present normocephalic Eye: Present EOMI and PERRL ENT: Present mucous membranes moist *Routine Neck Exam Neck: Present supple; Absent lymphadenopathy *Routine Respiratory Exam Respiratory: Present CTA bilaterally *Routine Cardiovascular Exam Cardiovascular: Present RRR *Routine Abdominal Exam Abdominal: Present soft, normoactive bowel sounds and tenderness Comments: Mild generalized tenderness without peritoneal signs. *Routine Extremities Exam Extremities: Absent cyanosis, clubbing or edema *Routine Skin Exam Skin: Present warm; Absent rash *Routine Neurological Exam Neurological: Present alert and oriented X3 Results Data Completed and Pending Labs on day of discharge: Labs from last 24 hours 04/18/24 04/18/24 04/18/24 06:55 03:40 01:00 WBC 7.1 D RBC 4.43 Hgb 12.0 L Hct 37.6 MCV 84.9 MCH 27.1 MCHC 31.9 RDW 12.9 Plt Count 289 MPV 9.5 Neut % (Auto) 73.1 Lymph % (Auto) 19.5 [place] % (Auto) 6.3 Eos % (Auto) 0.3 Baso % (Auto) 0.4 Neut # (Auto) 5.2 Lymph # (Auto) 1.4 [place] # (Auto) 0.5 Eos # (Auto) 0.0 Baso # (Auto) 0.0 Sodium 138 Potassium 4.3 Chloride 104 Carbon Dioxide 28 Anion Gap 10.3 BUN 11 Creatinine 0.70 Estimated Creat Clear 166 Estimated GFR 102 Est GFR ( Amer) 123 Glucose 92 Calcium 8.7 Magnesium 1.7 Total Bilirubin 0.3 AST 36 ALT 25 Alkaline Phosphatase 39 Troponin I < 0.01 < 0.01 Total Protein 6.5 Albumin 4.1 D Globulin 2.4 Albumin/Globulin Ratio 1.7 Triglycerides 38 Cholesterol 123 L LDL Cholesterol Direct 57.47 L VLDL Cholesterol 8 HDL Cholesterol 41 Cholesterol/HDL Ratio 3.0 Lipase Serum HCG, Qual Urine Color Urine Appearance Urine pH Ur Specific [place] Urine Protein Urine Glucose (UA) Urine Ketones Urine Blood Urine Nitrate Urine Bilirubin Urine Urobilinogen Ur Leukocyte Esterase Urine RBC Urine WBC Ur Squamous Epith Cells Urine Bacteria 04/17/24 04/17/24 21:35 21:17 WBC 9.9 RBC 4.67 Hgb 12.8 Hct 38.9 MCV 83.3 MCH 27.4 MCHC 32.9 RDW 12.9 Plt Count 328 MPV 9.6 Neut % (Auto) 68.4 Lymph % (Auto) 25.1 [place] % (Auto) 5.1 Eos % (Auto) 0.8 Baso % (Auto) 0.4 Neut # (Auto) 6.8 Lymph # (Auto) 2.5 [place] # (Auto) 0.5 Eos # (Auto) 0.1 Baso # (Auto) 0.0 Sodium 140 Potassium 3.8 Chloride 102 Carbon Dioxide 28 Anion Gap 13.8 BUN 13 Creatinine 0.80 Estimated Creat Clear 145 Estimated GFR 87 Est GFR ( Amer) 106 Glucose 93 Calcium 9.6 Magnesium 1.6 Total Bilirubin < 0.1 L AST 34 ALT 23 Alkaline Phosphatase 44 Troponin I < 0.01 Total Protein 7.8 Albumin 5.2 H Globulin 2.6 Albumin/Globulin Ratio 2.0 H Triglycerides Cholesterol LDL Cholesterol Direct VLDL Cholesterol HDL Cholesterol Cholesterol/HDL Ratio Lipase 123 Serum HCG, Qual Negative Urine Color Yellow Urine Appearance Clear Urine pH 7.0 Ur Specific [place] 1.025 Urine Protein Negative Urine Glucose (UA) Negative Urine Ketones Negative Urine Blood Negative Urine Nitrate Negative Urine Bilirubin Negative Urine Urobilinogen 0.2 Ur Leukocyte Esterase Negative Urine RBC None Urine WBC Occasional Ur Squamous Epith Cells 5-10 Urine Bacteria Trace DS: Diagnosis Discharge Diagnosis (1) Acute cholecystitis without calculus: Status: Acute Code(s): K81.0 - Acute cholecystitis Meds Home Medications and Allergies Home Medications ?Medication ?Instructions ?Recorded ?Confirmed ?Type etonogestrel 68 mg subdermal 1 implant subdermal ONCE 06/30/23 04/18/24 History implant (Nexplanon) hydrocodone 5 mg-acetaminophen 325 1 tab PO Q6H PRN pain #20 tabs 04/18/24 Rx mg tablet rimegepant 75 mg disintegrating 75 mg PO Q48H PRN migraine headache 04/18/24 04/18/24 History tablet (Nurtec ODT) New Prescriptions to Start Prescriptions: hydrocodone-acetaminophen Gary De Jesus Allergies Allergy/AdvReac Type Severity Reaction Status Date / Time No Known Allergies Allergy Verified 03/24/24 14:30 Discharge Plan Disposition Patient Disposition: Home, Self-Care Condition: Good Follow up Plan Follow up with: Jack Silva MD [Staff Physician] - 04/27/24 9:15 am Prescriptions/Medication Reconciliation: New hydrocodone-acetaminophen 5-325 mg tablet 1 tab PO Q6H PRN (Reason: pain) Qty: 20 0RF Continued Nexplanon 68 mg implant 1 implant subdermal ONCE Patient Comments: inserted 02-27-2022 Nurtec ODT 75 mg tablet,disintegrating 75 mg PO Q48H PRN (Reason: migraine headache) Problem Reconciliation Problems Reviewed?: Yes Patient Discharge Instructions ACTIVITY: Ambulate as tolerated and No heavy lifting DIET: advance to your usual diet Additional Instructions: Remove dressings and shower after 48 hours Patient Instructions: Surgical Site Infection, Cholecystectomy -- Laparoscopic Surgery Print Language: Hebrew Providers Primary Care Provider: Jelena Griffin Admit Provider: Gary De Jesus Attending Provider: Gary De Jesus
--- NOTE | 2024-04-18 17:00 | PC.NURSE ---
Discharged home via w/c, pt is accompanied by sig other.
== END 2024-04-18 17:00 | disposition home or self-care (01) ==
LOC: ER 04-18 00:25 → 2ND 04-18 00:25 → OB 04-18 00:27
PROVIDERS: Emergency Medicine; Nurse Practitioner Family; Surgery; Admitting Provider Student in an Organized Health Care Education/Training Program; Emergency Provider Emergency Medicine; PCP Nurse Practitioner Family; Visit Provider Student in an Organized Health Care Education/Training Program
PROC: 0FT44ZZ Resection of Gallbladder, Percutaneous Endoscopic Approach (ICD-10-PCS; CPT 47562; principal; 2024-04-18 09:45)
DX: K80.00 Calculus of gallbladder with acute cholecystitis without obstruction (principal)
CPT/HCPCS: 47562; 36415; 71275; 74177; 76705; 80053; 80061; 81001; 83690; 83735; 84484; 84703; 85025; 93005; 99285; J3490; G0378; J1100; J1171; J1885; J2250; J2270; J2405; J2543; J2550; J3010; J7030; Q9967

== ENCOUNTER 2024-06-13 10:27 | Outpatient (CLI) | payer OTHER, SELFPAY ==
--- NOTE | 2024-06-13 10:30 | US_ITS ---
PROCEDURE INFORMATION: Exam: US Left Breast, Complete US Right Breast, Complete Exam date and time: 06/13/2024 10:23 AM Age: 23 years old Clinical indication: Concern for right breast lumps. TECHNIQUE: Imaging protocol: Complete ultrasound of all four quadrants of the left breast and the retroareolar regions, including ultrasound of the axilla when performed. Complete ultrasound of all four quadrants of the right breast and the retroareolar regions, including ultrasound of the axilla when performed. COMPARISON: No relevant prior studies available. FINDINGS: ULTRASOUND: Breast ultrasound findings: Bilateral sonography, also quadrants, retroareolar and axilla. On the right, corresponding to the palpable concern at 4 o'clock 5 cm from the nipple, superficial solid-appearing oval, gently lobulated mass with heterogeneous hyperechoic components, with minimal flecks of Doppler flow, measuring 2.7 x 2.3 x 1.0 cm. At the palpable concern at 11 o'clock, no sonographic findings demonstrated. Sonographically unremarkable axillary lymph node, with cortical thickness of 0.3 cm which is the upper limit of normal with no increased Doppler flow and a maintained echogenic hilum. On the left, no sonographic findings demonstrated. Borderline abnormal axillary lymph node, with increased cortical thickness of 0.5 cm, with no increased Doppler flow and a maintained echogenic hilum IMPRESSION: See comments Suggest ultrasound guided biopsy of indeterminate 2.7 cm mass on the right at 4 o'clock corresponding to the palpable concern. No sonographic findings at the palpable concern on the right at 11 o'clock. Thus advise added right diagnostic mammography, marking both areas of palpable concern, with CC and MLO and spot compression - to assess whether any mammographic finding related to the palpable concern at 11 o'clock which is sonographically negative. Further evaluation of a palpable abnormality should be based on clinical grounds regardless of radiographic findings or lack thereof. ASSESSMENT: BI-RADS Category 4: Suspicious.
== END 2024-06-13 23:59 | disposition home or self-care (01) ==
LOC: RAD 10:28
PROVIDERS: PCP Nurse Practitioner Family; Visit Provider Obstetrics & Gynecology
DX: N64.4 Mastodynia (principal); N63.11 Unspecified lump in the right breast, upper outer quadrant; N63.14 Unspecified lump in the right breast, lower inner quadrant
CPT/HCPCS: 76641

== ENCOUNTER 2024-06-14 10:22 | Outpatient (CLI) | payer OTHER, SELFPAY ==
--- NOTE | 2024-06-14 10:30 | MM_ITS ---
PROCEDURE INFORMATION: Exam: MG Right Diagnostic Breast Tomosynthesis Exam date and time: 06/14/2024 10:30 AM Age: 23 years old Clinical indication: Recall following bilateral sonography from 06/13/2024 concern for palpable masses on the right at 4 and 11 o'clock. TECHNIQUE: Imaging protocol: Right Diagnostic tomosynthesis and 2D mammography including computer-aided detection (CAD) when performed. Unilateral or bilateral exam. Triangular marker placed in the lower inner palpable concern with spot-compression added. COMPARISON: US BREAST RT COMPLETE 06/13/2024 10:38 AM FINDINGS: MAMMOGRAPHY: Breast mammogram findings: Breast composition: The breasts are heterogeneously dense, which may obscure small masses. Mass: Corresponding to the palpable concern, oval partly visualized about 1.4 cm mass in the right lower inner quadrant middle to posterior 3rd, CC image [id number] frame 22 and MLO image 1372 frame 62. No skin marker placed on palpable concern concern at 11 o'clock. Architectural distortion: None. Calcifications: No suspicious calcifications. Asymmetric density: None. Skin thickening: None. Axillary adenopathy: None. IMPRESSION: Palpable concern in the lower inner quadrant corresponds to an approximately 1.4 cm mass, this appears to correlate to sonographic mass in the right at 4 o'clock (which appears larger on sonography). Please refer to prior sonography report. No mammographic findings suggested in the 11 o'clock region to correspond to the palpable concern which was negative on sonography.Further evaluation of a palpable abnormality should be based on clinical grounds regardless of radiographic findings or lack thereof. ASSESSMENT: BI-RADS Category 4: Suspicious.
== END 2024-06-14 23:59 | disposition home or self-care (01) ==
LOC: RAD 10:22
PROVIDERS: PCP Nurse Practitioner Family; Visit Provider Obstetrics & Gynecology
DX: N63.12 Unspecified lump in the right breast, upper inner quadrant (principal); N63.13 Unspecified lump in the right breast, lower outer quadrant
CPT/HCPCS: 77061; 77065; G0279

== ENCOUNTER 2024-06-20 09:09 | Outpatient (CLI) | payer OTHER, SELFPAY ==
--- NOTE | 2024-06-20 09:30 | US_ITS ---
FINAL REPORT CLINICAL HISTORY: RT Breast Mass -- RT BREAST BX -- DR VIVI ASENCIO FINDINGS: ULTRASOUND-GUIDED RIGHT BREAST CORE BIOPSY TECHNIQUE: Limited images were obtained to localize region of interest. The right breast was prepped in a routine sterile fashion and locally anesthetized with 1% lidocaine. Standard written informed consent was obtained. Lesion was localized as a 2.7 cm mass at approximate 4:00. The biopsy needle was positioned within the outer periphery of the lesion. A total of 4 passes were made with a 16 gauge core biopsy needle. A biopsy marker clip was deployed in satisfactory position. The clip was well seen sonographically. No mammogram was performed. Procedure was well tolerated . CONCLUSION: 1. Technically successful ultrasound guided core biopsy of right breast lesion as above. 2. Biopsy marker clip deployed Authenticated and [facility]
== END 2024-06-20 23:59 | disposition home or self-care (01) ==
LOC: RAD 09:09
PROVIDERS: PCP Nurse Practitioner Family; Visit Provider Obstetrics & Gynecology
DX: N63.14 Unspecified lump in the right breast, lower inner quadrant (principal)
CPT/HCPCS: 19083

== ENCOUNTER 2024-07-18 10:24 | Outpatient (CLI) | payer OTHER, SELFPAY ==
--- NOTE | 2024-07-18 10:30 | US_ITS ---
FINAL REPORT TECHNIQUE: Limited sonographic imaging of the left axilla was obtained. CLINICAL HISTORY: 4-8 week follow up -- enlarged lymph nodes COMPARISON: 06/20/2024 FINDINGS: There is a 1.4 cm left axillary lymph node which is unchanged from prior exam with a benign appearance. A second, less than 1 cm lymph node also with a benign appearance is identified which was not included on prior exam. IMPRESSION: Benign appearing lymph nodes in the left axilla, largest is unchanged from prior exam. Reviewed, Interpreted and Dictated by Mayra Whitt MD Transcribed by Trinidad Zaidi Authenticated and [facility]
--- NOTE | 2024-07-18 11:00 | US_ITS ---
FINAL REPORT TECHNIQUE: Limited sonographic imaging of the right axilla was obtained. CLINICAL HISTORY: 4-8 week follow up -- enlarged lymph nodes COMPARISON: 06/20/2024 FINDINGS: There are 3 lymph nodes in the right axilla with the largest measuring 2 cm. Although this measures larger in size, grayscale imaging is unchanged. These all have a benign appearance. IMPRESSION: Benign-appearing, mildly prominent right axillary lymph nodes, stable from prior exam. Reviewed, Interpreted and Dictated by Mayra Whitt MD Transcribed by Trinidad Zaidi Authenticated and [facility]
== END 2024-07-18 23:59 | disposition home or self-care (01) ==
LOC: RAD 10:25
PROVIDERS: PCP Nurse Practitioner Family; Visit Provider Obstetrics & Gynecology
DX: R59.0 Localized enlarged lymph nodes (principal)
CPT/HCPCS: 76642

== ENCOUNTER 2025-01-02 08:16 | Outpatient (CLI) | payer OTHER, SELFPAY ==
--- NOTE | 2025-01-02 08:30 | US_ITS ---
PROCEDURE INFORMATION: Exam: US Right Breast, Complete US Left Breast, Complete Exam date and time: 01/02/2025 8:24 AM Age: 24 years old Clinical indication: History of benign right breast biopsy. Follow-up. TECHNIQUE: Imaging protocol: Complete ultrasound of all four quadrants of the right breast and the retroareolar regions, including ultrasound of the axilla when performed. Complete ultrasound of all four quadrants of the left breast and the retroareolar regions, including ultrasound of the axilla when performed. COMPARISON: US BIOPSY BREAST RT 06/20/2024 9:39 AM FINDINGS: ULTRASOUND: Breast ultrasound findings: In the right breast lower inner quadrant, 4 o'clock axis, 5 cm from the nipple, there is a stable mass with parallel orientation that measures 2.5 x 1.0 x 2.5 cm, unchanged since 06/13/2024. This is a biopsy-proven benign mass. No right axillary adenopathy. Complete scanning of the left breast is performed. There is no dominant or suspicious mass, shadowing, or distortion. No left axillary adenopathy. IMPRESSION: 1. No sonographic evidence of malignancy. 2. Annual bilateral mammographic screening is recommended to commence at the age of 40 unless otherwise clinically indicated. ASSESSMENT: BI-RADS Category 2: Benign.
== END 2025-01-02 23:59 | disposition home or self-care (01) ==
LOC: RAD 08:17
PROVIDERS: PCP Nurse Practitioner Family; Visit Provider Obstetrics & Gynecology
DX: N63.14 Unspecified lump in the right breast, lower inner quadrant; Z98.890 Other specified postprocedural states
CPT/HCPCS: 76641

== ENCOUNTER 2025-01-22 08:43 | Outpatient (CLI) | payer OTHER, SELFPAY ==
[2025-01-22 09:18] LABS: Cholesterol 131 mg/dl (140-200); HDL Cholesterol 53 mg/dl (40-60); Triglycerides 80 mg/dl (30-150)
[2025-01-22 09:49] LABS: Thyroid Stimulating Hormone 0.73 uIU/mL (0.465-4.68)
[2025-01-22 10:08] LABS: Vitamin B12 467 pg/mL (239-931)
[2025-01-22 10:24] LABS: 25-OH Vitamin D, Total 59.2 ng/mL (30-100); Free T4 (Free Thyroxine) 1.08 ng/dl (0.78-2.19)
[2025-01-22 10:32] LABS: Hemoglobin A1C 5.0 % (4.0-6.0)
== END 2025-01-22 23:59 | disposition home or self-care (01) ==
LOC: LAB 08:45
PROVIDERS: PCP Nurse Practitioner Family; Visit Provider Nurse Practitioner Family
DX: I10 Essential (primary) hypertension (principal); R53.83 Other fatigue; Z13.220 Encounter for screening for lipoid disorders; Z13.1 Encounter for screening for diabetes mellitus
CPT/HCPCS: 80061; 82306; 82607; 83036; 84439; 84443

== ENCOUNTER 2025-03-07 09:55 | Outpatient (CLI) | payer OTHER, SELFPAY ==
[2025-03-07 07:40] VITALS: BMI 30.7
[2025-03-07 10:13] LABS: Hematocrit 39.3 % (37.0-47.0); Hemoglobin 12.8 g/dL (12.2-16.2); Immature Granulocytes % 0.2 %; Mean Corpuscular HGB Conc 32.6 g/dL (31.8-35.4); Mean Corpuscular Hemoglobin 27.5 pg (27.0-31.2); Mean Corpuscular Volume 84.5 fl (81-99); Nucleated Red Blood Cells % 0 %; Platelet Count 283 K/mm3 (142-424); Red Blood Count 4.65 M/mm3 (4.20-5.40); Red Cell Distribution Width-SD 40.4 fL; White Blood Count 6.4 K/mm3 (4.8-10.8)
[2025-03-07 10:29] LABS: Albumin Level 4.8 g/dl (3.5-5.0); Chloride 104 mmol/L (98-107); Sodium 139 mmol/L (136-145)
[2025-03-07 10:30] LABS: Potassium 4.0 mmoL/L (3.5-5.1)
[2025-03-07 10:32] LABS: Alanine Aminotransferase 16 U/L (12-78); Anion Gap 11.0 mEq/L (5-15); Aspartate Amino Transferase 28 U/L (14-36); Blood Urea Nitrogen 12 mg/dl (7-17); Carbon Dioxide 28 mmol/L (22.0-30.0); Creatinine Clearance Estimated 121 mL/min (50-200); Creatinine,Serum 0.90 mg/dl (0.52-1.04); Estimated Glomerular Filt Rate 76 ml/min (>60); GFR (African American) 92 ML/MIN (>60)
[2025-03-07 10:33] LABS: Albumin/Globulin Ratio 1.5 (1.1-1.8); Alkaline Phosphatase 40 U/L (38-126); Bilirubin,Total 0.5 mg/dl (0.2-1.3); Calcium 9.5 mg/dl (8.4-10.2); Globulin 3.1 g/dL (1.3-3.2); Glucose 85 mg/dl (74-100); Total Protein,Serum 7.9 g/dl (6.3-8.2)
== END 2025-03-07 23:59 | disposition home or self-care (01) ==
LOC: PREOP 09:55
PROVIDERS: PCP Nurse Practitioner Family; Visit Provider Obstetrics & Gynecology
DX: Z01.812 Encounter for preprocedural laboratory examination (principal); R10.20 Pelvic and perineal pain unspecified side; G89.29 Other chronic pain
CPT/HCPCS: 80053; 84702; 85025

== ENCOUNTER 2025-03-14 07:58 | Day surgery (SDC) | payer OTHER, SELFPAY ==
[2025-03-07 13:37] VITALS: BMI 30.7
[2025-03-14] VITALS (10 sets, daily range): BP systolic 104–134; BP diastolic 62–90; PULSE 70–79; RESP 16–18; TEMP 36.4–36.6; O2SAT 95–100
[2025-03-14] MEDS: ACETAMINOPHEN 500MG TAB 1000 MG PO (08:18)
--- NOTE | 2025-03-14 08:33 | P.PNANES_ITS ---
[facility] Disclaimer: The information contained in this section may have been updated after the patient was seen, as this information can be updated by other users. Medical History PCOS (polycystic ovarian syndrome) Dyspareunia, female Encounter for routine gynecological examination Screening for lipid disorders Encounter for screening for diabetes mellitus Fatigue Acute bronchitis Pain of right heel Migraines Abnormal uterine bleeding Decreased libido without sexual dysfunction Dyspareunia Chronic pelvic pain in female Vaginal discharge Anxiety Migraine Hx of cataract Anemia during Endometritis following delivery Upper respiratory infection Hypomagnesemia Hypokalemia Fever Mastitis History of migraine with aura Alopecia Encounter for initial prescription of Nexplanon Group A streptococcal infection Encounter for visit Surgical History History of laparoscopic cholecystectomy History of phacoemulsification of cataract of left eye with intraocular lens implantation History of tonsillectomy and adenoidectomy Status post vaginal delivery Family History Other Anemia Cancer Coronary artery disease Hypertension Social History Smoking Status: Never smoker alcohol intake: never counseling provided: none substance use type: denies use current occupational status: employed Travel in the last 8 weeks?: None household members: family housing: house marital status: life partner Have you lived/traveled outside [place] in past 30 days?: No Contact w/someone who lives/traveled outside [place] past 30 days?: No Exposure to someone with infectious disease in past 14 days?: No Do you have a fever (greater than 100.4 F or 38 C)?: No Have you tested positive for COVID-19?: No Exposed to someone with COVID-19 in past 14 days?: No Do you have a sore throat?: No Do you have a cough?: No Do you have any weakness?: No Do you have any diarrhea?: No Are you experiencing any unusual bleeding?: No Do you have any muscle aches/pain?: No Do you have any abdominal pain?: No Are you experiencing loss of taste or smell?: No [facility] Anesthesia Checklist Patient Identification Patient Identification: Arm Band and Verbal (Name & ) Structural Data Admitted From: Home Planned Operative Procedure/s: disgnostic laperscopy Consent for Planned Operative Procedure(s) Verified: Yes Verified Documents: Surgical Consent and History and Physical NPO Status Verified Time NPO: 00:00 Additional verifications Patient : No Anesthesia Reactions: Yes (PONV) Airway Assessment Mallampati Score:: Class I Dentition: Good Dentition Neurological Assessment Level of Consciousness: Awake, Alert and Appropriate Hx Seizures: No Numbness or tingling in extremities: No Anesthesia Plan Anesthesia Risk discussed: Yes Anesthesia Plan: Verified ASA Class: II Anesthesia Type: General
[2025-03-14] MEDS: LIDOCAINE 1% W/EPI 1:100,000 20ML VIAL 20 ML (09:40)
[2025-03-14] MEDS: SILVER NITRATE APPLICATOR 1 EACH TP (10:15)
--- NOTE | 2025-03-14 10:34 | EXP.OP.NOTE ---
Date of procedure: 03/14/25 Pre-op Diagnosis:: 1. Abnormal uterine bleeding 2. Pelvic pain 3. Dyspareunia 4. Nexplanon in place Post-op Diagnosis:: 1. Abnormal uterine bleeding 2. Pelvic pain 3. Dyspareunia 4. Nexplanon in place Procedure performed:: 1. Diagnostic laparoscopy 2. Dilation and curettage 3. Insertion of Kyleena IUD 4. Removal of Nexplanon Surgeon:: Jyoti Hayes DO [facility] Assistant Navigator(s):: N/a STOREKEEPER STEWARD:: Tejal Stanley Anesthesia: GETA Estimated blood loss (mL): 0 Clinical Note:: Ms Marylu Daily is a 24 yo P1001 who presents to [facility] for scheduled procedure. She has Nexplanon in place. Periods are monthly, irregular. She admits periods are about every 2-3 weeks. Flow lasts 7 days and is heavy and painful. She admits to pelvic pain outside of her periods, pain with intercourse that is positional and sometimes pain with bowel movements. No bladder complaints. She has history of migraines with aura and is not a candidate for estradiol containing contraception. She tried Orilissa and medication made her mood labile and did not make her feel well. History of PCOS. P1001. History of x 1. Operative findings:: 1. On bimanual exam, uterus normal size and shape, midposition. No adnexal masses palpated 2. On laparoscopic exam, grossly normal appearing liver and bowel. Gallbladder surgically absent. Grossly normal appearing uterus, bilateral fallopian tubes and ovaries. No adhesions or evidence of endometriosis seen. Operative note:: Risks, benefits and alternatives were discussed with the patient. Risks include but are not limited to bleeding, infection, damage to adjacent structures and VTE. Patient voiced understanding and agreed to proceed with surgery. She was wheeled back to the operating room and placed under general anesthesia without difficulty. She was placed in the dorsal lithotomy position and prepped and draped in normal sterile fashion. A straight catheter was used to drain the bladder. A bimanual exam was performed. A weighted Auvard was placed in the vaginal vault. A single tooth tenaculum was placed on the anterior lip of the cervix. Robinette manipulator was inserted into the cervical canal and attached to the tenaculum. Weighted Auvard was removed from the vagina. Attention was then drawn to the abdomen. A 1.5 cm infraumbilical incision was made. Veress needle was tested and inserted intraabdominally without difficulty. Opening pressure of 4 mm Hg. Abdomen was then insulflated to 15 mm Hg. Trocar was inserted through infraumbilical incision and laparoscope was inserted. Abdomen was viewed in its entirety. See findings above. Pictures were taken. Pneumoperitoneum was released into the atmosphere. Infraumbilical trocar was removed under direct laparoscopic visualization to ensure no herniation of bowel or omentum. Skin incision was closed with 3-0 Vicryl. Dermabond was applied over closed skin incision. Attention was turned to the vagina. Robinette manipulator was removed from the cervix. Weighted Auvard was placed in the vaginal vault. Uterus sounded to 9. Sequential Husam dilators were used to dilate the cervical os. A small size sharp curette was inserted through the cervix into the uterine cavity and endometrium was curetted with a systematic back and forth movement in a 360 degree manner. All endometrial curettings will be sent to pathology for review. Instruments were removed from the vagina. Tenaculum site was noted to oozing. Silver nitrate stick x 1 was applied to tenaculum site. Hemostasis was noted. Next, attention was turned to left upper arm. Arm was prepped with betadine swabs x 3. Scalpel was used to make small skin incision at tip of Nexplanon. Hemostat was used to grasp tip of Nexplanon. Nexplanon was removed without difficulty. Skin was cleaned and Dermabond was applied over skin incision. 4 x 4 gauze and Coband was placed over incision. Patient was cleaned and placed into the dorsal supine position. She awoke from anesthesia without difficulty. She was transported to the recovery room in stable condition. She was given instructions for discharge and to follow-up in the office in 2 weeks at which time pathology will be reviewed. Condition: stable Disposition: same day Specimens:: 1. Endometrial curettings Complications:: None
--- NOTE | 2025-03-14 10:45 | EXP.ANES.I ---
[facility] Anesthesia Record Part I Anesthesia Record I Intake, IV Amount: 1,200 Hydration: Adequate Estimated blood loss (mL): 0 Urine output (mL): 200 Blood Pressure: 134/90 SaO2: 95 Pulse Rate: 78 Airway Patency: Patent Respiratory Rate: 18 Temperature: 97.8 F Patient is:: Awake, Drowsy and Nasal O2 Stable to PACU at:: 10:40
--- NOTE | 2025-03-15 14:01 | EXP.ANES.II ---
[facility] Anesthesia Record Part II Anesthesia Record Part II Discharge Time: 11:50 Destination: Surgical Day Care (OP Surgery) PACU nurse assessment reviewed?: Yes Patient Condition:: Good Anesthesia Complications:: None Swallowing reflex intact?: Yes Airway Patency: Patent Cyanosis?: No Blood Pressure: 112/62 SaO2: 99 Respiratory Rate: 16 Pulse Rate: 77 Temperature: 97.5 F Mental Status: Alert & Oriented Pain level:: 0 Nausea and/or vomitting:: None Intake, IV Amount: 0 Hydration: Adequate
[2025-03-15 14:02] VITALS: BP 112/62; PULSE 77; RESP 16; TEMP 36.4; O2SAT 99
== END 2025-03-14 12:00 | disposition home or self-care (01) ==
PROVIDERS: PCP Nurse Practitioner Family; Visit Provider Obstetrics & Gynecology
PROC: (CPT 49320; principal; 2025-03-14 09:30)
DX: N93.9 Abnormal uterine and vaginal bleeding, unspecified (principal); N94.10 Unspecified dyspareunia; E28.2 Polycystic ovarian syndrome; G43.109 Migraine with aura, not intractable, without status migrainosus; G89.29 Other chronic pain; Z90.49 Acquired absence of other specified parts of digestive tract
CPT/HCPCS: 11982; 49320; 58120; J1100; J1200; J1885; J2003; J2004; J2250; J2405; J2704; J3010; J7120